=== PATIENT | female | born 1945 | race Caucasian/White ===

== ENCOUNTER → 2020-07-17 10:24 | Outpatient (BNVA) | payer MEDICARE, OTHER, SELFPAY | PROVIDERS: PCP Nurse Practitioner Family; Referring Provider Family Medicine; Visit Provider Orthopaedic Surgery | DX: T14.8XXA Other injury of unspecified body region, initial encounter (principal); M54.2 Cervicalgia; X58.XXXA Exposure to other specified factors, initial encounter | CPT/HCPCS: 72050; 73110 ==

== ENCOUNTER 2021-08-07 12:43 | Emergency (ER) | payer MEDICARE, OTHER, SELFPAY ==
[2021-08-07 13:07] VITALS: BP 163/58; PULSE 80; RESP 18; O2SAT 93; BMI 23.9
[2021-08-07 13:10] VITALS: BP 163/58; PULSE 77; O2SAT 92
--- NOTE | 2021-08-07 13:17 | ED_ITS ---
HPI - Fall General: Chief Complaint: Fall Stated Complaint: Right side and back pain due to fall Time Seen by Provider: 08/07/21 13:09 Source: patient and family Mode of arrival: ambulatory Limitations: no limitations History of Present Illness: Patient is a nice 76-year-old female who presents to ED today along with family for evaluation following a fall. Patient tells me earlier this morning she had stepped outside on her front porch and tripped and fell and landed onto her right side. Patient is complaining mainly of pain to her right ribs. Patient denies striking her head or LOC. She is not having any neck or back pain. Patient has been ambulatory without difficulty since the fall and is not complaining of any hip or lower extremity pain. Patient is not having any shortness of breath or difficulty breathing. She does have pain on deep inspiration. Denies palpitations, lightheadedness, dizziness. MD complaint: fall Onset (ago): hour(s) Fall from: standing Fall witnessed: no Place fall occurred: home Loss of consciousness: None Prolonged down time: no Symptoms prior to fall: none Context: tripped/slipped Location of injury: chest (R ribs) Associated symptoms-after fall: Reports no associated symptoms and chest pain (R rib pain); Denies abdominal pain, confusion, headache(s), lightheadedness or neck pain Review of Systems 2 Card: Reports: chest pain (R rib pain); Denies: palpitations, irregular heart rhythm, edema, swelling of feet/ankles, lightheadedness, syncope or pre-syncope Resp: Denies: dyspnea, wheezing or hemoptysis GI: Denies: abdominal pain : Denies: flank pain, dysuria or vaginal odor Musc: Denies: neck pain, back pain, extremity pain or joint pain Neuro: Denies: headache(s), numbness in extremities, weakness in extremities, sensory changes, dizziness, confusion, behavioral changes, Slurred speech present or difficulty communicating thoughts PFSH ED PFSH: Social History Smoking and tobacco status: never smoked Alcohol intake: never Physical Exam Const: COMMON NORMALS: no acute distress, average body habitus, patient oriented x3, no limitations, healthy appearing, alert and well nourished GENERAL APPEARANCE: cooperative ORIENTATION/CONSCIOUSNESS: Yes awake, Yes oriented to person, Yes oriented to place and Yes oriented to time HENMT: COMMON NORMALS: normocephalic, atraumatic and Normal external nose present HEAD & SCALP: normal to inspection, normocephalic and atraumatic FACE & SINUS: normal facial exam NOSE: Normal external nose present Eye: GENERAL EYE: appearance normal, both eyes and all related structures Neck/C-Spine: COMMON NORMALS: full ROM, no lymphadenopathy, supple and no meningeal signs CERVICAL SPINE: Yes cervical ROM normal, No pain with ce rvical ROM, No Cervical spine tenderness, No step off deformity and No Paracervical muscle tenderness Chest: COMMONS NORMALS: normal inspection of the chest OTHER: pt has pain mainly to R lower anteriolateral ribs; some pain to posterior lower ribs; no crepitus; lung sounds normal Resp: COMMON NORMALS: normal respiratory effort and clear to auscultation bilaterally AUSCULTATION: clear to auscultation bilaterally Cardio: COMMON NORMALS: regular rate and regular rhythm RATE: regular rate RHYTHM: regular rhythm GI: COMMON NORMALS: Normal to inspection, nondistended, normoactive bowel sounds present, Soft to palpation and no masses INSPECTION: Yes normal to inspection PALPATION: Yes Soft to palpation, Yes Tenderness to palpation present (GI) (R upper abdomen ), Yes Guarding due to palpation present (GI) and No Rigid due to palpation : COMMON NORMALS: Yes no CVA tenderness BLADDER/KIDNEY EXAM: Yes no CVA tenderness Back/Pelvis: COMMON NORMALS: no CVA tenderness, thoracic and lumbar spine normal to inspection, no thoracic nor lumbar tenderness and thoraco-lumbar ROM normal Extremity: COMMON NORMALS: normal to inspection and full ROM GENERAL: Yes normal exam except as noted Neuro: MAYTE COMA SCALE: document GCS findings [place] coma scale eye opening: Spontaneous Mayte coma scale verbal response: Orientated Mayte coma scale motor response: Obey commands [place] coma scale total score: 15 COMMON NORMALS: patient oriented x3, moves all extremities, no focal motor deficits and no sensory deficits noted SENSORIUM/ORIENTATION: Yes alert, Yes oriented to person, Yes oriented to place and Yes oriented to time MENINGEAL SIGNS: Yes no meningeal signs Skin: COMMON NORMALS: no rashes or lesions noted GENERAL SKIN EXAM: no rashes or lesions noted TRAUMA: no lacerations or abrasions Course Vital Signs: Vital signs: Vital Signs Pulse Rate 80 06/29/22 13:07 Respiratory Rate 18 08/07/21 13:07 Blood Pressure 163/58 08/07/21 13:07 Pulse Oximetry 93 08/07/21 13:07 MDM - Fall Medical Decision Making CT imaging obtained due to right rib/chest trauma as well as pain to her right abdomen and being on anticoagulation. This was normal. Vital signs are stable. She is satting normally on room air. Blood work is unremarkable. At this time we will provide pain medications for her discomfort. Recommend alternating ice and heat. Follow up with PCP in 3-5 days for re-evaluation. Return to ED precautions discussed. Lab Data : 08/07/21 13:50 08/07/21 13:50 Radiology Impressions Chest/Abdomen/Pelvis CT 08/07/21 13:26 IMPRESSION: 1. No pneumothorax or pulmonary contusion. 2. Moderate emphysema. 3. No rib fractures are identified. 4. Significant breathing motion artifact throughout the abdomen and pelvis. No liver or spleen laceration or free air identified. Small foci of free air or free fluid within the difficult to visualize. 5. Sigmoid diverticulosis. Laboratory Results WBC 6.5 10^3/uL (4.0-10.0) 08/07/21 13:50 RBC 4.41 10^6/uL (4.1-5.3) 08/07/21 13:50 Hgb 13.3 g/dL (11.5-15.3) 08/07/21 13:50 Hct 38.2 % (37.0-47.0) 08/07/21 13:50 MCV 86.6 fl (81-99) 08/07/21 13:50 MCH 30.2 pg (28.0-34.0) 08/07/21 13:50 MCHC 34.8 g/dL (30.0-36.0) 08/07/21 13:50 RDW 12.8 % (12.1-15.1) 08/07/21 13:50 Plt Count 191 10^3/cmm (130-400) 08/07/21 13:50 MPV 8.7 fL (7.4-10.4) 08/07/21 13:50 Neut % (Auto) 61.3 % 08/07/21 13:50 Lymph % (Auto) 23.8 % 08/07/21 13:50 [place] % (Auto) 12.1 % 08/07/21 13:50 Eos % (Auto) 1.7 % 08/07/21 13:50 Baso % (Auto) 0.5 % 08/07/21 13:50 Neut # (Auto) 4.00 10^3/uL (1.8-7.7) 08/07/21 13:50 Lymph # (Auto) 1.6 10^3/uL (0.8-4.8) 08/07/21 13:50 [place] # (Auto) 0.8 10^3/uL (0.2-0.9) 08/07/21 13:50 Eos # (Auto) 0.1 10^3/uL (0.0-0.8) 08/07/21 13:50 Baso # (Auto) 0.0 10^3/uL (0.0-0.1) 08/07/21 13:50 Nucleated RBC % (auto) 0 % 08/07/21 13:50 Nucleated RBCs # 0.0 /100WBC 08/07/21 13:50 Sodium 136 mmol/L (136-145) 08/07/21 13:50 Potassium 3.5 mmol/L (3.5-5.1) 08/07/21 13:50 Chloride 101 mmol/L (98-107) 08/07/21 13:50 Carbon Dioxide 24 mmol/L (22-29) 08/07/21 13:50 Anion Gap 14.5 (5-19) 08/07/21 13:50 BUN 20 mg/dL (8-23) 08/07/21 13:50 Creatinine 1.0 mg/dL (0.5-0.9) H 08/07/21 13:50 GFR Calculation Not Reportable 08/07/21 13:50 Glucose 60 mg/dL (65-115) L 08/07/21 13:50 Calculated Osmolality 282 mOsm/kg (285-295) L 08/07/21 13:50 Calcium 9.3 mg/dL (8.5-10.5) 08/07/21 13:50 Total Bilirubin 0.5 mg/dL (0.15-1.2) 08/07/21 13:50 AST 19 U/L (0-32) 08/07/21 13:50 ALT 12 U/L (0-33) 08/07/21 13:50 Alkaline Phosphatase 76 IU/L (35-105) 08/07/21 13:50 Total Protein 6.7 g/dL (6.6-8.7) 08/07/21 13:50 Albumin 3.9 g/dL (3.5-5.2) 08/07/21 13:50 Globulin 2.8 g/dL (1.3-4.6) 08/07/21 13:50 Discharge Plan Discharge Patient Disposition: Home Clinical Impression: Contusion of rib on right side Qualifiers: Encounter type: initial encounter Qualified Code(s): S20.211A - Contusion of right front wall of thorax, initial encounter Condition: Stable Prescriptions: New hydrocodone-acetaminophen 5-325 mg tablet 1 tab PO Q6H PRN (Reason: pain) Qty: 14 0RF No Action atorvastatin 80 mg tablet 80 mg PO BEDTIME 0RF trazodone 50 mg tablet 50 - 100 mg PO BEDTIME 0RF donepezil 10 mg tablet 10 mg PO QAM 0RF amlodipine 2.5 mg tablet 2.5 mg PO BEDTIME 0RF clopidogrel 75 mg tablet 75 mg PO QAM 0RF Aspir-81 81 mg Tablet,Delayed Release (Dr/Ec) 81 mg PO QAM 0RF hydrochlorothiazide 25 mg tablet 25 mg PO DAILY 0RF losartan 100 mg tablet 100 mg PO QAM 0RF Vitamin D3 25 mcg (1,000 unit) Capsule 25 mcg PO DAILY 0RF Discharge Orders: Discharge ED (Routine); Ordered 08/07/21 Ordered By: Samia Mccall Referrals: Eugenio Martinez [Primary Care Provider] - Patient Instructions: Rib Contusion (ED), Opioid Safety Coding Level of Care Code ED Heel Molder for Chg Fwd Exam Comprehensive
--- NOTE | 2021-08-07 13:26 | CT_ITS ---
WS: [id number] CT CHEST, ABDOMEN AND PELVIS NONCONTRAST. HISTORY: fall to R side; R rib/back pain, R abdominal pain TECHNIQUE: Contiguous 5 mm axial imaging performed through the chest, abdomen and pelvis without IV c ontrast, oral contrast has not been provided. Coronal and sagittal reformats chest. Coronal and sagit luis e reformats through the abdomen and pelvis. All CT scans at [facility] use at least one of these dose optimization techniques: automated exposure control; mA and/or kV adjustment per patient s ize (includes targeted exams where dose is matched to clinical indication); or iterative reconstructi on. CONTRAST: None DLP: 1431.73 mGy.cm COMPARISON: None available. Chest CT: Chronic emphysema. Prior CABG. Scattered granulomata. Interstitial thickening and prominenc e throughout both lungs. No mass or nodule. There are a few very small, less than 3 mm peripheral nod ules which are probably postinflammatory. No pneumothorax. Moderate atherosclerosis aorta. Mild pulmo nary hypertension. Heart size is slightly enlarged. No pericardial effusion. Marked increase in thora cic kyphosis. Mild anterior wedging of T7 and T9. No rib fractures are identified. Nondisplaced fract ures may be difficult to visualize. Abdomen CT: Significant motion artifact within the abdomen and pelvis. Negative liver and spleen and gallbladder taking into consideration the amount of motion. Pancreas is very poorly visualized. No ad renal mass. Small kidneys with no obstruction. Extensive atherosclerotic plaque within the aorta and the mesenteric arteries. No free fluid or adenopathy. Nondistended stomach. No small bowel obstruction. Mild constipation. The appendix is not identified. Distal diverticular disease without acute diverticulitis. Pelvic CT: Motion artifact continues into the pelvis. Well-distended urinary bladder. CT/[place] [id number] IMPRESSION: 1. No pneumothorax or pulmonary contusion. 2. Moderate emphysema. 3. No rib fractures are identified. 4. Significant breathing motion artifact throughout the abdomen and pelvis. No liver or spleen laceration or free air identified. Small foci of free air or f ree fluid within the difficult to visualize. 5. Sigmoid diverticulosis.
[2021-08-07 13:59] LABS: Basophils % 0.5 %; Eosinophils # 0.1 10^3/uL (0.0-0.8); Eosinophils % 1.7 %; Hematocrit 38.2 % (37.0-47.0); Hemoglobin 13.3 g/dL (11.5-15.3); Lymphocytes # 1.6 10^3/uL (0.8-4.8); Lymphocytes % 23.8 %; Mean Corpuscular HGB Conc 34.8 g/dL (30.0-36.0); Mean Corpuscular Hemoglobin 30.2 pg (28.0-34.0); Mean Corpuscular Volume 86.6 fl (81-99); Mean Platelet Volume 8.7 fL (7.4-10.4); Monocytes # 0.8 10^3/uL (0.2-0.9); Monocytes % 12.1 %; Neutrophils % 61.3 %; Nucleated Red Blood Cells % 0 %; Platelet Count 191 10^3/cmm (130-400); Red Blood Count 4.41 10^6/uL (4.1-5.3); Red Cell Distribution Width 12.8 % (12.1-15.1); White Blood Count 6.5 10^3/uL (4.0-10.0)
[2021-08-07] MEDS: ondansetron 2 mg/ML SDV 2 mL 4 MG IVP (14:05)
[2021-08-07] MEDS: morphine 4 mg/mL SDV 1 mL IVP (14:05)
[2021-08-07 14:10] VITALS: BP 179/69; PULSE 64; O2SAT 96
[2021-08-07 14:18] LABS: Alanine Aminotransferase 12 U/L (0-33); Albumin Level 3.9 g/dL (3.5-5.2); Alkaline Phosphatase 76 IU/L (35-105); Anion Gap 14.5 (5-19); Aspartate Amino Transferase 19 U/L (0-32); Blood Urea Nitrogen 20 mg/dL (8-23); Calcium 9.3 mg/dL (8.5-10.5); Carbon Dioxide 24 mmol/L (22-29); Chloride 101 mmol/L (98-107); Globulin 2.8 g/dL (1.3-4.6); Glucose 60 mg/dL (65-115); Osmolality Calculated 282 mOsm/kg (285-295); Potassium 3.5 mmol/L (3.5-5.1); Sodium 136 mmol/L (136-145); Total Bilirubin 0.5 mg/dL (0.15-1.2); Total Protein 6.7 g/dL (6.6-8.7)
[2021-08-07 15:20] VITALS: BP 158/61; PULSE 56; O2SAT 93
== END 2021-08-07 15:20 | disposition home or self-care (01) ==
PROVIDERS: Emergency Provider Physician Assistant; PCP Nurse Practitioner Family
DX: S20.211A Contusion of right front wall of thorax, initial encounter (principal); Z79.02 Long term (current) use of antithrombotics/antiplatelets; Z79.82 Long term (current) use of aspirin; W01.0XXA Fall on same level from slipping, tripping and stumbling without subsequent striking against object, initial encounter
CPT/HCPCS: 71250; 74176; 80053; 85025; 96374; 96375; 99284; J2270; J2405

== ENCOUNTER 2021-09-25 14:21 | Outpatient (CLI) | payer MEDICARE, OTHER, SELFPAY ==
[2021-09-25 15:12] LABS: Basophils % 0.6 %; Eosinophils # 0.2 10^3/uL (0.0-0.8); Eosinophils % 3.1 %; Hematocrit 43.2 % (37.0-47.0); Hemoglobin 14.3 g/dL (11.5-15.3); Lymphocytes % 27.7 %; Mean Corpuscular HGB Conc 33.1 g/dL (30.0-36.0); Mean Corpuscular Hemoglobin 30.3 pg (28.0-34.0); Mean Corpuscular Volume 91.5 fl (81-99); Mean Platelet Volume 8.7 fL (7.4-10.4); Monocytes # 0.7 10^3/uL (0.2-0.9); Monocytes % 9.3 %; Neutrophils # 4.17 10^3/uL (1.8-7.7); Neutrophils % 58.7 %; Nucleated Red Blood Cells % 0 %; Platelet Count 199 10^3/cmm (130-400); Red Blood Count 4.72 10^6/uL (4.1-5.3); Red Cell Distribution Width 12.9 % (12.1-15.1); White Blood Count 7.1 10^3/uL (4.0-10.0)
[2021-09-25 15:51] LABS: Folate Level 16.5 ng/mL (4.8-37.3)
[2021-09-25 15:58] LABS: Alanine Aminotransferase 14 U/L (0-33); Albumin Level 4.5 g/dL (3.5-5.2); Alkaline Phosphatase 76 U/L (35-105); Anion Gap 16.5 (5-19); Aspartate Amino Transferase 18 U/L (0-32); Blood Urea Nitrogen 18 mg/dL (8-23); Calcium 9.6 mg/dL (8.5-10.5); Carbon Dioxide 26 mmol/L (22-29); Chloride 101 mmol/L (98-107); Globulin 1.8 g/dL (1.3-4.6); Glucose 73 mg/dL (65-115); Iron 72 ug/dL (37-145); Osmolality Calculated 290 mOsm/kg (285-295); Percent Saturation 24.7 % (20-50); Potassium 3.5 mmol/L (3.5-5.1); Sodium 140 mmol/L (136-145); Thyroid Stimulating Hormone 1.43 uIU/mL (0.27-4.20); Total Bilirubin 0.6 mg/dL (0.15-1.2); Total Iron Binding Capacity 291 mcg/dl; Total Protein 6.3 g/dL (6.6-8.7); Unsaturated Iron Binding 219 ug/dL (112-347); Vitamin B12 495 pg/mL (232-1245)
== END 2021-09-25 14:22 | disposition home or self-care (01) ==
LOC: LAB 14:26
PROVIDERS: PCP Nurse Practitioner Family; Visit Provider Internal Medicine
DX: R41.0 Disorientation, unspecified (principal); D64.9 Anemia, unspecified
CPT/HCPCS: 36415; 80053; 82607; 82746; 83540; 83550; 84443; 85025

== ENCOUNTER 2021-10-05 09:30 | Emergency (ER) | payer MEDICARE, OTHER, SELFPAY ==
[2021-10-05 09:34] VITALS: BP 186/103; PULSE 70; RESP 18; TEMP 36.8; O2SAT 95; BMI 23.5
[2021-10-05] MEDS: sodium chloride 0.9% 1,000 ML 999 ML IV (10:00)
[2021-10-05 10:05] VITALS: BP 198/79; PULSE 60; RESP 19; O2SAT 98
[2021-10-05 10:20] LABS: Basophils % 0.4 %; Eosinophils # 0.1 10^3/uL (0.0-0.8); Eosinophils % 1.6 %; Hematocrit 42.8 % (37.0-47.0); Hemoglobin 14.2 g/dL (11.5-15.3); Lymphocytes # 1.5 10^3/uL (0.8-4.8); Lymphocytes % 19.3 %; Mean Corpuscular HGB Conc 33.2 g/dL (30.0-36.0); Mean Corpuscular Hemoglobin 30.4 pg (28.0-34.0); Mean Corpuscular Volume 91.6 fl (81-99); Mean Platelet Volume 8.7 fL (7.4-10.4); Monocytes # 0.7 10^3/uL (0.2-0.9); Monocytes % 8.9 %; Neutrophils # 5.31 10^3/uL (1.8-7.7); Neutrophils % 69.7 %; Nucleated Red Blood Cells % 0 %; Platelet Count 173 10^3/cmm (130-400); Red Blood Count 4.67 10^6/uL (4.1-5.3); Red Cell Distribution Width 13.1 % (12.1-15.1); White Blood Count 7.6 10^3/uL (4.0-10.0)
--- NOTE | 2021-10-05 10:27 | ED_ITS ---
HPI - Nausea/Vomiting/Diarrhea General: Chief complaint: Nausea/Vomiting/Diarrhea Stated complaint: n/d Time Seen by Provider: 10/05/21 09:39 Source: patient Mode of arrival: ambulatory History of Present Illness: 68-year-old female presents emergency room with complaint of nausea and diarrhea abdominal discomfort and cramping for the last 4 days. No hematemesis or coffee-ground emesis, no hematochezia or melena. She was recently diagnosed with UTI and started nitrofurantoin. She took a few days worth of the antibiotics and then stopped because she they were causing abdominal discomfort and she related to her onset of diarrhea. She was on another antibiotic within the last month that also cause diarrhea problem she do es not know the name of that medication. She is still having some mild dysuria. She notes that these stools are foul-smelling and mucousy at times. MD elicited complaint: diarrhea Onset (ago): day(s) (4) Description of diarrhea: mucus and semi-solid Associated nausea: Yes Associated abdominal pain: Yes Location of pain: Diffuse Radiation: diffuse Pain consistency: intermittent Severity: moderate Quality: cramping Exacerbating factors: none Relieving factors: none Associated symtoms: Reports fatigue, malaise and nausea; Denies altered mental status, anxiety, bloating, change in vision, chest pain, cough, diaphoresis, decreased urine output, dizziness, dysuria, epistaxis, fecal incontinence, fevers/chills, headache(s), anorexia, myalgias, numbness, palpitations, rash, short of breath, syncope, tenesmus, tinnitus or weakness Review of Systems Const: Reports: fatigue and malaise; Denies: fever(s), chills or diaphoresis Eyes: Denies: change in vision ENMT: Denies: throat pain, tinnitus or epistaxis Card: Denies: chest pain, palpitations or syncope Resp: Denies: dyspnea, productive cough or non-productive cough GI: Reports: abdominal pain, nausea and diarrhea; Denies: vomiting, hematemesis, coffee ground emesis, dysphagia, heartburn, bloating, fecal incontinence or hematochezia : Denies: dysuria Skin/Breast: Denies: rash or pruritus Neuro: Denies: headache(s) or dizziness Psych: Denies: anxiety PFSH ED PFSH: Social History Smoking and tobacco status: former smoker Alcohol intake: never Physical Exam Const: COMMON NORMALS: no acute distress EXAM LIMITATIONS: no altered mental status GENERAL APPEARANCE: cooperative and comfortable ORIENTATION/CONSCIOUSNESS: Yes awake, Yes oriented to person, Yes oriented to place and Yes oriented to time HENMT: COMMON NORMALS: normocephalic, atraumatic and hearing grossly normal bilaterally HEAD & SCALP: normocephalic and atraumatic Resp: COMMON NORMALS: normal respiratory effort, No retractions, No use of accessory muscles and clear to auscultation bilaterally AUSCULTATION: clear to auscultation bilaterally Cardio: COMMON NORMALS: regular rate, regular rhythm and No murmurs present (Cardio) RATE: regular rate RHYTHM: regular rhythm GI: COMMON NORMALS: Soft to palpation and No hepatosplenomegaly present AUSCULTATION: Yes normoactive bowel sounds PALPATION: Yes Soft to palpation, No Tenderness to palpation present (GI), No Guarding due to palpation present (GI) and Yes No hepatosplenomegaly present Extremity: COMMON NORMALS: normal to inspection, capillary refill normal, no clubbing, cyanosis or edema, no calf tenderness and no pedal edema Neuro: SENSORIUM/ORIENTATION: Yes oriented to person, Yes oriented to place an d Yes oriented to time Skin: COMMON NORMALS: no rashes or lesions noted GENERAL SKIN EXAM: no rashes or lesions noted Course Vital Signs: Vital signs: Vital Signs Temperature 98.3 F 10/05/21 09:34 Pulse Rate 64 10/05/21 13:59 Respiratory Rate 18 10/05/21 13:59 Blood Pressure 184/69 10/05/21 13:59 Pulse Oximetry 96 10/05/21 13:59 Oxygen Delivery Me thod 10/05/21 13:12 MDM - Nausea/Vomiting/Diarrhea Medical Decision Making Labs imaging reviewed treat symptomatically we will get a C. difficile patient was given IV fluids discharge home follow-up with primary care return if worsens patient requested admission so that she could sleep discussed with her that we really cannot admit her under those premises. Medical Records I reviewed the patient's medical records. Lab Data I reviewed the patient's lab results. : 10/05/21 10:02 10/05/21 10:02 Laboratory Results WBC 7.6 10^3/uL (4.0-10.0) 10/05/21 10:02 RBC 4.67 10^6/uL (4.1-5.3) 10/05/21 10:02 Hgb 14.2 g/dL (11.5-15.3) 10/05/21 10:02 Hct 42.8 % (37.0-47.0) 10/05/21 10:02 MCV 91.6 fl (81-99) 10/05/21 10:02 MCH 30.4 pg (28.0-34.0) 10/05/21 10:02 MCHC 33.2 g/dL (30.0-36.0) 10/05/21 10:02 RDW 13.1 % (12.1-15.1) 10/05/21 10:02 Plt Count 173 10^3/cmm (130-400) 10/05/21 10:02 MPV 8.7 fL (7.4-10.4) 10/05/21 10:02 Neut % (Auto) 69.7 % 10/05/21 10:02 Lymph % (Auto) 19.3 % 10/05/21 10:02 [place] % (Auto) 8.9 % 10/05/21 10:02 Eos % (Auto) 1.6 % 10/05/21 10:02 Baso % (Auto) 0.4 % 10/05/21 10:02 Neut # (Auto) 5.31 10^3/uL (1.8-7.7) 10/05/21 10:02 Lymph # (Auto) 1.5 10^3/uL (0.8-4.8) 10/05/21 10:02 [place] # (Auto) 0.7 10^3/uL (0.2-0.9) 10/05/21 10:02 Eos # (Auto) 0.1 10^3/uL (0.0-0.8) 10/05/21 10:02 Baso # (Auto) 0.0 10^3/uL (0.0-0.1) 10/05/21 10:02 Nucleated RBC % (auto) 0 % 10/05/21 10:02 Nucleated RBCs # 0.0 /100WBC 10/05/21 10:02 Sodium 140 mmol/L (136-145) 10/05/21 10:02 Potassium 3.7 mmol/L (3.5-5.1) 10/05/21 10:02 Chloride 103 mmol/L (98-107) 10/05/21 10:02 Carbon Dioxide 24 mmol/L (22-29) 10/05/21 10:02 Anion Gap 16.7 (5-19) 10/05/21 10:02 BUN 13 mg/dL (8-23) 10/05/21 10:02 Creatinine 0.9 mg/dL (0.5-0.9) 10/05/21 10:02 GFR Calculation Not Reportable 10/05/21 10:02 Glucose 92 mg/dL (65-115) 10/05/21 10:02 Calculated Osmolality 290 mOsm/kg (285-295) 10/05/21 10:02 Lactic Acid 1.5 mmol/L (0.5-2.2) 10/05/21 10:02 Calcium 8.9 mg/dL (8.5-10.5) 10/05/21 10:02 Total Bilirubin 1.0 mg/dL (0.15-1.2) 10/05/21 10:02 AST 18 U/L (0-32) 10/05/21 10:02 ALT 13 U/L (0-33) 10/05/21 10:02 Alkaline Phosphatase 74 U/L (35-105) 10/05/21 10:02 Total Protein 6.3 g/dL (6.6-8.7) L 10/05/21 10:02 Albumin 4.1 g/dL (3.5-5.2) 10/05/21 10:02 Globulin 2.2 g/dL (1.3-4.6) 10/05/21 10:02 Urine Color Yellow (Yellow) 10/05/21 10:16 Urine Appearance Sl hazy (CLEAR) 10/05/21 10:16 Urine pH 6 (5-7) 10/05/21 10:16 Ur Specific [place] 1.015 (1.005-1.030) 10/05/21 10:16 Urine Protein Trace (Negative) 10/05/21 10:16 Urine Glucose (UA) Norm (Normal) 10/05/21 10:16 Urine Ketones 1+ (Negative) H 10/05/21 10:16 Urine Blood 2+ (Negative) H 10/05/21 10:16 Urine Nitrate Negative (Negative) 10/05/21 10:16 Urine Bilirubin 1+ (Negative) H 10/05/21 10:16 Urine Urobilinogen 1 mg/dL (Negative) H 10/05/21 10:16 Ur Leukocyte Esterase 2+ (Negative) H 10/05/21 10:16 Urine RBC 5-10 /hpf (0-2) H 10/05/21 10:16 Urine WBC 15-25 /hpf (0-5) H 10/05/21 10:16 Ur Squamous Epith Cells 15-25 /hpf (0-5) H 10/05/21 10:16 Amorphous Sediment Not Reportable 10/05/21 10:16 Urine Bacteria 1+ /hpf (NONE) H 10/05/21 10:16 Urine Mucus 1+ /hpf 10/05/21 10:16 Discharge Plan Discharge Patient Disposition: Home Clinical Impression: Diarrhea Condition: Stable Prescriptions: New promethazine 25 mg tablet 25 mg PO Q6H PRN (Reason: nausea and vomiting) Qty: 20 0RF hydroxyzine HCl 25 mg tablet 25 - 50 mg PO .qhs PRN (Reason: sleep) Qty: 10 0RF No Action duloxetine 20 mg capsule,delayed release(DR/EC) 20 mg PO DAILY Qty: 90 3RF trazodone 50 mg tablet 50 - 100 mg PO BEDTIME amlodipine 2.5 mg tablet 2.5 mg PO BEDTIME clopidogrel 75 mg tablet 75 mg PO QAM Aspir-81 81 mg Tablet,Delayed Release (Dr/Ec) 81 mg PO QAM losartan 100 mg tablet 100 mg PO QAM Vitamin D3 25 mcg (1,000 unit) Capsule 25 mcg PO DAILY Discharge Orders: Discharge ED (Routine); Ordered 10/05/21 Ordered By: Hemal Horne Referrals: Eugenio Martinez [Primary Care Provider] - Patient Instructions: Opioid Safety Coding Level of Care Code ED [employer] Developer for Florence Christy
[2021-10-05] MEDS: hyDRALAzine 20 mg/mL INJ 1 mL IVP (10:32)
[2021-10-05] MEDS: enalaprilat 1.25 mg/mL Inj IVP (10:32)
[2021-10-05 10:33] LABS: Alanine Aminotransferase 13 U/L (0-33); Albumin Level 4.1 g/dL (3.5-5.2); Alkaline Phosphatase 74 U/L (35-105); Anion Gap 16.7 (5-19); Aspartate Amino Transferase 18 U/L (0-32); Blood Urea Nitrogen 13 mg/dL (8-23); Calcium 8.9 mg/dL (8.5-10.5); Carbon Dioxide 24 mmol/L (22-29); Chloride 103 mmol/L (98-107); Globulin 2.2 g/dL (1.3-4.6); Glucose 92 mg/dL (65-115); Osmolality Calculated 290 mOsm/kg (285-295); Potassium 3.7 mmol/L (3.5-5.1); Sodium 140 mmol/L (136-145)
[2021-10-05 10:35] LABS: Lactic Sepsis W/Reflex 1.5 mmol/L (0.5-2.2)
[2021-10-05 10:36] LABS: Add Urine Microscopic? YES; Bilirubin Urine 1+ (Negative); Blood Urine 2+ (Negative); Glucose Urine UA Norm (Normal); Ketones Urine 1+ (Negative); Leukocyte Esterase Urine 2+ (Negative); Nitrate Urine Negative (Negative); Protein Urine Trace (Negative); Specific Gravity, Urine 1.015 (1.005-1.030); Urine Appearance SL Hazy (CLEAR); Urine Color Yellow (Yellow); Urobilinogen Urine 1 mg/dL (Negative); pH Urine 6 (5-7)
[2021-10-05 10:38] LABS: Bacteria Urine 1+ /hpf; Mucus Urine 1+ /hpf; Squamous Epithelial Cell Urine 15-25 /hpf (0-5); WBC Urine 15-25 /hpf (0-5)
[2021-10-05 10:39] LABS: Add Urine Culture? No
[2021-10-05 10:56] LABS: Total Protein 6.3 g/dL (6.6-8.7)
[2021-10-05 13:12] VITALS: BP 184/72; PULSE 63; RESP 18; O2SAT 100
[2021-10-05 13:59] VITALS: BP 184/69; PULSE 64; RESP 18; O2SAT 96
== END 2021-10-05 14:00 | disposition home or self-care (01) ==
PROVIDERS: Emergency Provider Family Medicine; PCP Nurse Practitioner Family
DX: R19.7 Diarrhea, unspecified (principal); Z79.02 Long term (current) use of antithrombotics/antiplatelets; Z79.82 Long term (current) use of aspirin; Z87.891 Personal history of nicotine dependence
CPT/HCPCS: 80053; 81001; 83605; 85025; 87040; 87493; 96361; 96374; 96375; 99284; J0360; J3490; J7030

== ENCOUNTER 2022-02-25 06:20 | Emergency (ER) | payer MEDICARE, OTHER, SELFPAY ==
--- NOTE | 2022-02-25 06:27 | XR_ITS ---
WS: [id number] Thoracic spine, 3 views, 02/25/2022 Clinical Data: fall Comparison: None. Findings: No acute compression fractures are seen. The disc heights are normal. There are chronic wedge deformities of the central thoracic vertebral bodies with kyphosis. There is diffuse osteoporosis with minimal osteoarthritic spurring. Midline sternotomy sutures are seen. XR/XR thoracic spine 3V* [id number] Impression: 1. Central thoracic wedge deformities which are chronic. 2. Osteoporosis and osteoarthritis.
--- NOTE | 2022-02-25 06:27 | XR_ITS ---
WS: [id number] Lumbar spine, 3 views, 02/25/2022 Clinical Data: fall Comparison: CT chest abdomen and pelvis, 08/07/2021 Findings: There is a compression fracture of L3 with loss of at least 50% of the central vertebral body height. There is minimal 0.2 cm retropulsion of the posterior superior aspect of L3 There is degenerative disc narrowing at L5-S1 with spurring. There is diffuse osteoporosis. The trans verse processes and SI joints are not remarkable. There is calcification in the wall of the abdominal aorta but no aneurysm.. XR/XR lumbar spine 2-3V* [id number] Impression: 1. Compression fracture of L3 which is new. 2. Degenerative disc narrowing at L5-S1. 3. Osteoporosis of all the lumbar vertebral bodies.
[2022-02-25 06:30] VITALS: BP 206/100; PULSE 95; RESP 16; TEMP 36.7; O2SAT 96; BMI 21.9
--- NOTE | 2022-02-25 06:42 | W.ED.BACK ---
HPI - Back Pain/Injury General: Chief Complaint: Back Pain/Injury Stated Complaint: fall, back injury Time Seen by Provider: 02/25/22 06:27 Source: patient Mode of arrival: ambulatory History of Present Illness: 77-year-old female presents emergency room with complaint of UTI symptoms as well as low back pain. 2 weeks ago patient had a L3 compression fracture. She was placed in a TLSO brace at [facility] in [place] and discharged home with pain medications. She is also recently had a bladder infection she was initially started on Macrobid and then another medication she does not know the name of the second antibiotic and does not have it on her medicine list at this time still having quite a bit of suprapubic discomfort denies any hematuria no fever. Presents today because of worsening pain in her back. MD elicited complaint: back pain Pertinent past history: recent trauma Timing: constant Severity: mild Location: lumbar spine Radiation: none Exacerbating factors: none Relieving factors: none Associated symptoms: Reports abdominal pain (Suprapubic), difficulty walking and dysuria; Deny arthralgias, chills, change in bowel habits, fatigue, fecal incontinence, fever(s), hematuria, myalgias, nausea, numbness, syncope, tingling/numbness/burning, urinary frequency, urinary urgency, vomiting or weakness Review of Systems Const: Denies: fever(s), chills or fatigue ENMT: Denies: throat pain, ear or mastoid pain, nasal discharge or nasal congestion Card: Denies: syncope Resp: Denies: dyspnea, productive cough or non-productive cough GI: Reports: abdominal pain (Suprapubic); Denies: nausea, vomiting, fecal incontinence or change in bowel habits : Reports: dysuria and urinary frequency; Denies: urinary urgency or hematuria Skin/Breast: Denies: rash or pruritus Neuro: Reports: difficulty walking PFSH ED PFSH: Medical History (Updated 02/25/22 @ 10:46 by Hemal Horne DO) High cholesterol Hypertension Surgical History (Updated 02/25/22 @ 06:43 by Hemal Horne DO) History of open heart surgery Social History Smoking and tobacco status: former smoker Alcohol intake: never Physical Exam Const: GENERAL APPEARANCE: cooperative and comfortable ORIENTATION/CONSCIOUSNESS: Yes awake, Yes oriented to person, Yes oriented to place and Yes oriented to time HENMT: COMMON NORMALS: normocephalic, atraumatic and hearing grossly normal bilaterally HEAD & SCALP: normocephalic and atraumatic Resp: COMMON NORMALS: normal respiratory effort, No retractions, No use of accessory muscles and clear to auscultation bilaterally AUSCULTATION: clear to auscultation bilaterally Cardio: COMMON NORMALS: regular rate, regular rhythm and No murmurs present (Cardio) RATE: regular rate RHYTHM: regular rhythm GI: COMMON NORMALS: Soft to palpation and No hepatosplenomegaly present AUSCULTATION: Yes normoactive bowel sounds PALPATION: Yes Soft to palpation, No Tenderness to palpation present (GI), No Guarding due to palpation present (GI) and Yes No hepatosplenomegaly present Extremity: COMMON NORMALS: normal to inspection, capillary refill normal, no clubbing, cyanosis or edema, no calf tenderness and no pedal edema Neuro: SENSORIUM/ORIENTATION: Yes oriented to person, Yes oriented to place and Yes oriented to time Skin: COMMON NORMALS: no rashes or lesions noted GENERAL SKIN EXAM: no rashes or lesions noted Course Vital Signs: Vital signs: Vital Signs Temperature 98.0 F 02/25/22 06:30 Pulse Rate 94 02/25/22 11:15 Respiratory Rate 16 02/25/22 06:30 Blood Pressure 180/98 02/25/22 11:15 Pulse Oximetry 94 02/25/22 11:15 Oxygen Delivery Me thod 02/25/22 10:00 MDM - Back Pain/Injury Medical Decision Making Patient has an L3 compression fracture and is out of hydrocodone. Was able to talk to another family member she was seen in [place] they had set up follow-up but evidently she had missed follow-up she is supposed set up with a primary care but had missed that as well. She is rescheduled tomorrow to establish with her primary care encourage her to keep that visit. We will set her up locally with orthopedic spine surgery for possible kyphoplasty. Pain medications refilled. Medical Records I reviewed the patient's medical records. Labs I reviewed the patient's lab results. 02/25/22 07:41 02/25/22 07:41 Radiology Impressions Lumbar Spine X-Ray 02/25/22 06:27 Impression: 1. Compression fracture of L3 which is new. 2. Degenerative disc narrowing at L5-S1. 3. Osteoporosis of all the lumbar vertebral bodies. Thoracic Spine X-Ray 02/25/22 06:27 Impression: 1. Central thoracic wedge deformities which are chronic. 2. Osteoporosis and osteoarthritis. Laboratory Results WBC 7.5 10^3/uL (4.0-10.0) 02/25/22 07:41 RBC 4.60 10^6/uL (4.1-5.3) 02/25/22 07:41 Hgb 13.6 g/dL (11.5-15.3) 02/25/22 07:41 Hct 42.0 % (37.0-47.0) 02/25/22 07:41 MCV 91.3 fl (81-99) 02/25/22 07:41 MCH 29.6 pg (28.0-34.0) 02/25/22 07:41 MCHC 32.4 g/dL (30.0-36.0) 02/25/22 07:41 RDW 12.9 % (12.1-15.1) 02/25/22 07:41 Plt Count 308 10^3/cmm (130-400) 02/25/22 07:41 MPV 8.2 fL (7.4-10.4) 02/25/22 07:41 Neut % (Auto) 62.3 % 02/25/22 07:41 Lymph % (Auto) 26.1 % 02/25/22 07:41 [place] % (Auto) 9.3 % 02/25/22 07:41 Eos % (Auto) 1.1 % 02/25/22 07:41 Baso % (Auto) 0.8 % 02/25/22 07:41 Neut # (Auto) 4.68 10^3/uL (1.8-7.7) 02/25/22 07:41 Lymph # (Auto) 2.0 10^3/uL (0.8-4.8) 02/25/22 07:41 [place] # (Auto) 0.7 10^3/uL (0.2-0.9) 02/25/22 07:41 Eos # (Auto) 0.1 10^3/uL (0.0-0.8) 02/25/22 07:41 Baso # (Auto) 0.1 10^3/uL (0.0-0.1) 02/25/22 07:41 Nucleated RBC % (auto) 0 % 02/25/22 07:41 Nucleated RBCs # 0.0 /100WBC 02/25/22 07:41 Sodium 131 mmol/L (136-145) L 02/25/22 07:41 Potassium 4.0 mmol/L (3.5-5.1) 02/25/22 07:41 Chloride 96 mmol/L (98-107) L 02/25/22 07:41 Carbon Dioxide 24 mmol/L (22-29) 02/25/22 07:41 Anion Gap 15.0 (5-19) 02/25/22 07:41 BUN 17 mg/dL (8-23) 02/25/22 07:41 Creatinine 0.8 mg/dL (0.5-0.9) 02/25/22 07:41 GFR Calculation Not Reportable 02/25/22 07:41 Glucose 101 mg/dL (65-115) 02/25/22 07:41 Calculated Osmolality 274 mOsm/kg (285-295) L 02/25/22 07:41 Calcium 9.0 mg/dL (8.5-10.5) 02/25/22 07:41 Urine Color Yellow (Yellow) 02/25/22 07:18 Urine Appearance Clear (CLEAR) 02/25/22 07:18 Urine pH 5 (5-7) 02/25/22 07:18 Ur Specific [place] 1.005 (1.005-1.030) 02/25/22 07:18 Urine Protein Trace (Negative) 02/25/22 07:18 Urine Glucose (UA) Norm (Normal) 02/25/22 07:18 Urine Ketones Negative (Negative) 02/25/22 07:18 Urine Blood 2+ (Negative) H 02/25/22 07:18 Urine Nitrate Negative (Negative) 02/25/22 07:18 Urine Bilirubin Neg (Negative) 02/25/22 07:18 Urine Urobilinogen Norm mg/dL (Negative) 02/25/22 07:18 Ur Leukocyte Esterase Trace (Negative) H 02/25/22 07:18 Urine RBC 0-4 /hpf (0-2) H 02/25/22 07:18 Urine WBC 0-4 /hpf (0-5) H 02/25/22 07:18 Ur Squamous Epith Cells 0-4 /hpf (0-5) H 02/25/22 07:18 Ur Transition Epith Cell 0-4 /hpf 02/25/22 07:18 Amorphous Sediment Not Reportable 02/25/22 07:18 Urine Bacteria Trace /hpf (NONE) 02/25/22 07:18 Discharge Plan Discharge Patient Disposition: Home Clinical Impression: Closed compression fracture of lumbar vertebra Condition: Stable Prescriptions: New hydrocodone-acetaminophen 5-325 mg tablet 1 tab PO Q6H PRN (Reason: pain) Qty: 20 0RF No Action duloxetine 30 mg capsule,delayed release(DR/EC) 30 mg PO DAILY Qty: 90 3RF pantoprazole 40 mg tablet,delayed release (DR/EC) 40 mg PO QAM Qty: 90 3RF trazodone 50 mg tablet 50 - 100 mg PO BEDTIME Qty: 60 3RF amlodipine 2.5 mg tablet 2.5 mg PO BEDTIME clopidogrel 75 mg tablet 75 mg PO QAM Aspir-81 81 mg Tablet,Delayed Release (Dr/Ec) 81 mg PO QAM losartan 100 mg tablet 100 mg PO QAM Vitamin D3 25 mcg (1,000 unit) Capsule 25 mcg PO DAILY promethazine 25 mg tablet 25 mg PO Q6H PRN (Reason: nausea and vomiting) Qty: 20 0RF hydroxyzine HCl 25 mg tablet 25 - 50 mg PO .qhs PRN (Reason: sleep) Qty: 10 0RF Discharge Orders: Discharge ED (Routine); Ordered 02/25/22 Ordered By: Hemal Horne Discharge Diet: Usual diet Discharge Activity: Increase activity as tolerated Patient Instructions: Opioid Safety, Pain Management Activity Restrictions/Additional Instructions: Keep your appointment to establish with Dr. Mcgovern for primary care tomorrow. Case management will make arrangements for follow-up with orthopedic spine surgery to evaluate for possible kyphoplasty. Coding Level of Care Code ED Post Secondary Professional for Michaelg Fwd Exam Detailed
[2022-02-25] MEDS: amlodipine 5 mg Tablet PO (07:15)
[2022-02-25] MEDS: HYDROcodone-acetaminophen 5-325 mg Tablet 1 TAB PO (07:15)
[2022-02-25 07:21] VITALS: BP 207/84; PULSE 83; O2SAT 98
[2022-02-25 07:50] VITALS: BP 207/84
[2022-02-25] MEDS: losartan 50 mg Tablet 100 MG PO (07:50)
[2022-02-25 07:56] LABS: Basophils # 0.1 10^3/uL (0.0-0.1); Basophils % 0.8 %; Eosinophils # 0.1 10^3/uL (0.0-0.8); Eosinophils % 1.1 %; Hemoglobin 13.6 g/dL (11.5-15.3); Lymphocytes % 26.1 %; Mean Corpuscular HGB Conc 32.4 g/dL (30.0-36.0); Mean Corpuscular Hemoglobin 29.6 pg (28.0-34.0); Mean Corpuscular Volume 91.3 fl (81-99); Mean Platelet Volume 8.2 fL (7.4-10.4); Monocytes # 0.7 10^3/uL (0.2-0.9); Monocytes % 9.3 %; Neutrophils # 4.68 10^3/uL (1.8-7.7); Neutrophils % 62.3 %; Nucleated Red Blood Cells % 0 %; Platelet Count 308 10^3/cmm (130-400); Red Cell Distribution Width 12.9 % (12.1-15.1); White Blood Count 7.5 10^3/uL (4.0-10.0)
[2022-02-25 08:04] LABS: Glucose Urine UA Norm (Normal); Protein Urine Trace (Negative); Specific Gravity, Urine 1.005 (1.005-1.030); Urine Appearance Clear (CLEAR); Urine Color Yellow (Yellow); pH Urine 5 (5-7)
[2022-02-25 08:05] LABS: Add Urine Culture? No; Add Urine Microscopic? YES; Bacteria Urine TRACE /hpf; Bilirubin Urine Neg (Negative); Blood Urine 2+ (Negative); Ketones Urine Negative (Negative); Leukocyte Esterase Urine Trace (Negative); Nitrate Urine Negative (Negative); RBC Urine 0-4 /hpf (0-2); Squamous Epithelial Cell Urine 0-4 /hpf (0-5); Transitional Epi Cells Urine 0-4 /hpf; Urobilinogen Urine Norm (Negative); WBC Urine 0-4 /hpf (0-5)
[2022-02-25 08:07] LABS: Blood Urea Nitrogen 17 mg/dL (8-23); Carbon Dioxide 24 mmol/L (22-29); Chloride 96 mmol/L (98-107); Creatinine Clr Calc Pharmacy 56.1359; Glucose 101 mg/dL (65-115); Osmolality Calculated 274 mOsm/kg (285-295); Sodium 131 mmol/L (136-145)
[2022-02-25 08:21] VITALS: BP 159/103
[2022-02-25 10:00] VITALS: BP 196/77; PULSE 93; O2SAT 94
[2022-02-25 11:15] VITALS: BP 180/98; PULSE 94; O2SAT 94
--- NOTE | 2022-02-25 12:04 | DCPLANNER ---
Addendum entered by Joanie Smart 03/06/22 13:46: Patient had a follow up appointment scheduled for 03.04.22 with ortho - patient did attend appointment. Original Note: road manager had message to schedule a follow up appointment for patient with ortho. road manager sent patients information to the front office staff at ortho. Patients information will be printed and reviewed. Clinic will call patient with appointment information.
== END 2022-02-25 11:10 | disposition home or self-care (01) ==
PROVIDERS: Emergency Provider Family Medicine
DX: S32.030A Wedge compression fracture of third lumbar vertebra, initial encounter for closed fracture (principal); Z79.02 Long term (current) use of antithrombotics/antiplatelets; Z79.82 Long term (current) use of aspirin; I10 Essential (primary) hypertension; Z87.891 Personal history of nicotine dependence; X58.XXXA Exposure to other specified factors, initial encounter
CPT/HCPCS: 36415; 72072; 72100; 80048; 81001; 85025; 99284

== ENCOUNTER → 2022-03-03 10:26 | Outpatient (BNVA) | payer MEDICARE, OTHER, SELFPAY | PROVIDERS: PCP Family Medicine; Visit Provider Family Medicine | DX: R35.0 Frequency of micturition (principal) | CPT/HCPCS: 81000; 87086 ==

== ENCOUNTER → 2022-03-04 08:29 | Outpatient (BNVA) | payer MEDICARE, OTHER, SELFPAY | PROVIDERS: PCP Family Medicine; Visit Provider Physician Assistant | DX: S32.000A Wedge compression fracture of unspecified lumbar vertebra, initial encounter for closed fracture (principal); W19.XXXA Unspecified fall, initial encounter; M85.88 Other specified disorders of bone density and structure, other site; R10.2 Pelvic and perineal pain | CPT/HCPCS: 72170; 99203 ==

== ENCOUNTER 2022-03-14 07:27 | Outpatient (CLI) | payer MEDICARE, OTHER, SELFPAY ==
--- NOTE | 2022-03-14 08:00 | MR_ITS ---
WS: [id number] MRI LUMBAR SPINE NONCONTRAST HISTORY: compression fracture COMPARISON: Lumbar spine radiograph 02/25/[address] lumbar spine on 02/09/2022. TECHNIQUE: Sagittal and axial multisequence imaging is submitted. Marked increase in the thoracic kyphosis seen on the survey image. Mild straightening of the normal lumbar lordosis. Moderate increased T2 signal throughout the L3 vert ebral body extending into the pedicles. Patient has a known L3 fracture with retropulsion by 6.5 mm a s described on a prior CT. Mild disc space narrowing and desiccation. Conus terminates normally at L1. L1-L2: Mild bilateral facet joint arthritis. No high-grade stenosis. L2-L3: Diffuse annular disc bulging. Ligamentum flavum and facet arthritis. Retropulsion of the L3 ve rtebral body with significant encroachment and deformity upon the thecal sac extending into the subar ticular recesses and the foramen. Marked stenosis with thecal sac deformity centrally and LEFT subart icular recess. High-grade effacement of fat in the LEFT foramen and mild on the RIGHT. There is signi ficant encroachment upon the LEFT L2 and L3 nerve roots. L3-L4: Bilateral facet joint arthritis and ligamentum flavum hypertrophy. Mild bilateral subarticular encroachment. Moderate LEFT and mild RIGHT foraminal stenosis. L4-L5: Diffuse annular disc bulging with ligamentum flavum hypertrophy. Disc encroachment into the murray barticular recesses. There is moderate encroachment upon the traversing L5 nerve roots. Mild to moder ate bilateral foraminal stenosis. L5-S1: Mild disc bulging with a very tiny central disc protrusion. Mild facet arthritis. Moderate nakita ateral foraminal stenosis and mild subarticular recess encroachment. LEFT renal cyst 1.2 cm. MR/MR lumbar spine wo con* [id number] IMPRESSION: 1. Acute L3 50% compression fracture with retropulsion of the posterior verteb ral body by 6.5 mm. 2. Significant central and LEFT subarticular recess stenosis. Significant encr oachment on the LEFT L2 and L3 nerve roots. 3. Moderate LEFT L3-4 foraminal stenosis and mild on the RIGHT. 4. Mild bilateral subarticular recess encroachment at L3-4. 5. Moderate stenosis traversing L5 nerve roots at the L4-5 level with mild to moderate bilateral foraminal stenosis. 6. Moderate bilateral foraminal stenosis and mild subarticular recess stenosis at L5-S1.
== END 2022-03-14 07:28 | disposition home or self-care (01) ==
LOC: RAD 07:27
PROVIDERS: PCP Family Medicine; Visit Provider Physician Assistant
DX: M48.56XA Collapsed vertebra, not elsewhere classified, lumbar region, initial encounter for fracture (principal); M48.061 Spinal stenosis, lumbar region without neurogenic claudication; M48.07 Spinal stenosis, lumbosacral region
CPT/HCPCS: 72148

== ENCOUNTER → 2022-03-20 10:53 | Outpatient (BNVA) | payer MEDICARE, OTHER, SELFPAY | PROVIDERS: PCP Family Medicine; Visit Provider Orthopaedic Surgery | DX: S32.030A Wedge compression fracture of third lumbar vertebra, initial encounter for closed fracture (principal); W19.XXXA Unspecified fall, initial encounter | CPT/HCPCS: 99214 ==

== ENCOUNTER 2022-03-26 13:40 | Observation (INO) | payer MEDICARE, OTHER, SELFPAY ==
--- NOTE | 2022-03-24 13:39 | ECG_ITS ---
[facility] Test Date: 2022-03-24 Pat Name: Mellissa Hurt Department: Room: Gender: Female Calciner Feeder: : 1945 Requested By: Gerardo Peña Order Number: [id number] Marge MD: Justin Padilla M.D. Measurements Intervals Wheelwright Rate: 100 P: 140 MI: 132 QRS: 47 QRSD: 74 T: 140 QT: 338 QTc: 437 Interpretive Statements Sinus TACHYCARDIA WITH OCCASIONAL ECTOPIC PREMATURE COMPLEXES POSSIBLE LEFT ATRIAL ENLARGEMENT [-0.1mV P-WAVE IN V1/V2] NONSPECIFIC ST & T-WAVE ABNORMALITY No previous ECG available for comparison Electronically Signed On 03-24-2022 14:39:57 GERMAN PROFESSOR by Justin Padilla M.D. [id number]
[2022-03-24 13:49] VITALS: BMI 22.5
[2022-03-24 14:04] LABS: Basophils % 0.6 %; Eosinophils # 0.1 10^3/uL (0.0-0.8); Eosinophils % 1.6 %; Hematocrit 45.6 % (37.0-47.0); Hemoglobin 14.9 g/dL (11.5-15.3); Lymphocytes # 1.7 10^3/uL (0.8-4.8); Lymphocytes % 26.6 %; Mean Corpuscular HGB Conc 32.7 g/dL (30.0-36.0); Mean Corpuscular Volume 91.8 fl (81-99); Mean Platelet Volume 8.7 fL (7.4-10.4); Monocytes # 0.6 10^3/uL (0.2-0.9); Monocytes % 8.7 %; Neutrophils # 3.93 10^3/uL (1.8-7.7); Neutrophils % 62.2 %; Nucleated Red Blood Cells % 0 %; Platelet Count 230 10^3/cmm (130-400); Red Blood Count 4.97 10^6/uL (4.1-5.3); White Blood Count 6.3 10^3/uL (4.0-10.0)
[2022-03-24 14:22] LABS: Anion Gap 13.1 (5-19); Blood Urea Nitrogen 19 mg/dL (8-23); Calcium 9.5 mg/dL (8.5-10.5); Carbon Dioxide 29 mmol/L (22-29); Chloride 99 mmol/L (98-107); Glucose 136 mg/dL (65-115); Osmolality Calculated 288 mOsm/kg (285-295); Potassium 4.1 mmol/L (3.5-5.1); Sodium 137 mmol/L (136-145)
--- NOTE | 2022-03-24 14:24 | P.ANESASSM_ITS ---
Pre-Anesthetic Assessment Height/Weight: Height 1.7 m Weight 65.317 kg Preop Diagnosis: Lumbar compression fracture, lumbar stenosis with neurogenic claudication Operation Date: 03/26/22 10:35 Proposed Procedures p Kyphoplasty:L3 Compression fracture 99176,Decopression 27963,M48.062 S32.000(Not Applicable) - DO rdaha Pimentel Lumbar Spine Decompression:L2/3 L3/4(Not Applicable) - Barry Rodrigez DO Familial anesthetic complications: none Was Beta Sheryl taken within 24 hours: N/A Was Clonidine taken within 24 hours: N/A Social No alcohol and No tobacco Exam alert, oriented x 3, clear to auscultation bilaterally and regular rate & rhythm Airway Submandibular: within normal limits Cervical ROM: within normal limits Mallampati: Class II Dentition: partials CV/HEM Coronary Artery Disease (CABG) and Hypertension GI Gastroesophageal Reflux Disease Musc/skel Lower Back Pain and Osteoarthritis/DJD Neuropsych Anxiety and Cerebrovascular Accident Anesthetic Plan ASA status: 3 Anesthesia: General Medications/Allergies Home Medications Medication Instructions Recorded Confirmed Last Taken Type amlodipine 2.5 mg tablet 2.5 mg PO BEDTIME 08/07/21 03/24/22 03/23/22 History aspirin 81 mg tablet,delayed 81 mg PO QAM 08/07/21 03/24/22 03/21/22 History release cholecalciferol (vitamin D3) 25 25 mcg PO DAILY 08/07/21 03/24/22 03/24/22 History mcg (1,000 unit) capsule (Vitamin D3) clopidogrel 75 mg tablet 75 mg PO QAM 08/07/21 03/24/22 03/21/22 History losartan 100 mg tablet 100 mg PO QAM 08/07/21 03/24/22 03/24/22 History duloxetine 30 mg capsule,delayed 30 mg PO DAILY #90 caps 11/13/21 03/24/22 03/24/22 Rx release atorvastatin 80 mg tablet 80 mg PO DAILY 02/26/22 03/24/22 03/24/22 History brimonidine 0.2 %-timolol 0.5 % 1 drp ophthalmic (eye) BID 02/26/22 03/24/22 03/23/22 History eye drops (Combigan) cetirizine 10 mg tablet 10 mg PO DAILY PRN Allergy Symptoms 02/26/22 03/24/2202/21/23 History cyanocobalamin (vitamin B-12) 1,000 mcg PO DAILY 02/26/22 03/24/22 03/24/22 History 1,000 mcg capsule docusate sodium 100 mg capsule 100 mg PO BID 02/26/22 03/24/22 03/24/22 History donepezil 10 mg tablet 10 mg PO DAILY 02/26/22 03/24/22 03/24/22 History pantoprazole 40 mg tablet,delayed 40 mg PO QAM #90 tabs 02/27/22 03/24/22 03/24/22 Rx release oxycodone-acetaminophen 5 mg-325 1 - 2 tab PO Q4H PRN pain 03/24/22 03/24/22 03/24/22 History mg tablet (Percocet) Allergies Allergy/AdvReac Type Severity Reaction Status Date / Time lisinopril Allergy cough Verified 03/24/22 13:42 Sulfa (Sulfonamide Allergy severe Verified 03/24/22 13:42 Antibiotics) reaction landing her in hospital beta blockers Allergy makes her Uncoded 03/24/22 13:42 cough PFSH Anesthesia Medical History Anxiety Atherosclerosis Cognitive decline Coronary artery disease Diverticulosis History of myocardial infarction Hyperlipidemia Hypertension Osteoporosis Surgical History History of cataract extraction with lens replacement History of coronary artery bypass graft x 2 History of right mastoidectomy Social History Smoking and tobacco status: former smoker Quit status (tobacco): has quit using tobacco Year quit tobacco: 2012 Alcohol intake: never Household members: spouse Marital status: Number of children: 3 Number of grandchildren: 6 [employer]: [employer]ational Agree to transfusion: Yes Data Anesthesia 03/24/22 13:50 03/24/22 13:50 Short CBC 03/24/22 Range/Units 13:50 WBC 6.3 (4.0-10.0) 10^3/uL Hgb 14.9 (11.5-15.3) g/dL Hct 45.6 (37.0-47.0) % MCV 91.8 (81-99) fl Plt Count 230 (130-400) 10^3/cmm Neut % (Auto) 62.2 % Neut # (Auto) 3.93 (1.8-7.7) 10^3/uL BMP 03/24/22 13:50 Sodium 137 Potassium 4.1 Chloride 99 Carbon Dioxide 29 BUN 19 Calcium 9.5 Cardiac Studies: No Data to Display
[2022-03-26] VITALS (25 sets, daily range): BP systolic 132–182; BP diastolic 63–99; PULSE 70–126; RESP 11–20; TEMP 36.5–37.2; O2SAT 92–99; BMI 22.5
--- NOTE | 2022-03-26 09:25 | W.PM.OPSUD ---
Surgery/Procedure H&P Update DATE OF PROCEDURE: March 26, 2022 DATE H&P PERFORMED: 03/20/22 H&P UPDATE INFORMATION: I have reviewed H&P completed within last 30 days, I have examined patient prior to procedure and No changes to prior documentation PREOP DIAGNOSIS: Lumbar compression fracture, lumbar stenosis with neurogenic claudication PLANNED PROCEDURE: Operation Date: 03/26/22 10:35 Proposed Procedures p Kyphoplasty:L3 Compression fracture 75990,Decopression 92330,M48.062 S32.000(Not Applicable) - DO radha Pimentel Lumbar Spine Decompression:L2/3 L3/4(Not Applicable) - Barry Rodrigez DO
--- NOTE | 2022-03-26 09:26 | W.PM.OPSUD ---
Surgery/Procedure H&P Update DATE OF PROCEDURE: March 26, 2022 DATE H&P PERFORMED: 03/20/22 H&P UPDATE INFORMATION: I have reviewed H&P completed within last 30 days, I have examined patient prior to procedure and No changes to prior documentation PREOP DIAGNOSIS: Lumbar compression fracture, lumbar stenosis with neurogenic claudication PLANNED PROCEDURE: Operation Date: 03/26/22 10:35 Proposed Procedures p Kyphoplasty:L3 Compression fracture 17092,Decopression 33174,M48.062 S32.000(Not Applicable) - DO radha Pimentel Lumbar Spine Decompression:L2/3 L3/4(Not Applicable) - Barry Rodrigez DO
[2022-03-26] MEDS: sodium chloride 0.9% 1,000 ML 30 ML IV (09:37)
[2022-03-26] MEDS: HYDROmorphone 1 mg/mL INJ 1 mL 0.5 MG IVP (09:37)
[2022-03-26] MEDS: ondansetron 2 mg/ML SDV 2 mL 4 MG IVP (09:38)
[2022-03-26] MEDS: ceFAZolin 2,000 MG in sodium chloride 0.9% (plus) 50 ML 100 MG IV ×2 (10:03→17:15)
--- NOTE | 2022-03-26 10:06 | P.ANESUD_ITS ---
Pre-Anesthetic Update Pre-Anesthetic Assessment: Date of Surgery/Procedure: 03/26/22 Preop Rafaela gnosis: Lumbar compression fracture, lumbar stenosis with neurogenic claudication Proposed Procedure: Operation Date: 03/26/22 10:35 Proposed Procedures p Kyphoplasty:L3 Compression fracture 67844,Decopression 05320,M48.062 S32.000(Not Applicable) - Barry Rodrigez, DO s Lumbar Spine Decompression:L2/3 L3/4(Not Applicable) - Barry Rodrigez, DO Any changes to Pre-Anesthetic Assessment?: No Last Intake: Intake Last Liquid Date 03/25/22 Last Liquid Time 20:00 Last Solid Date 03/25/22 Last Solid Time 20:00 Labs Last 48hrs: Short CBC 03/24/22 Range/Units 13:50 WBC 6.3 (4.0-10.0) 10^3/ uL Hgb 14.9 (11.5-15.3) g/dL Hct 45.6 (37.0-47.0) % MCV 91.8 (81-99) fl Plt Count 230 (130-400) 10^3/c mm Neut % (Auto) 62.2 % Neut # (Auto) 3.93 (1.8-7.7) 10^3/u L BMP 03/24/22 13:50 Sodium 137 Potassium 4.1 Chloride 99 Carbon Dioxide 29 BUN 19 Creatinine 1.1 H Glucose 136 H Calcium 9.5 Vitals: Temperature 99.0 F 03/26/22 08:40 Temperature Source Temporal Artery S can 03/26/22 08:40 Pulse Rate 84 03/26/22 08:40 Pulse Rhythm 03/26/22 08:48 Pulse Strength 3+ Normal 03/26/22 08:48 Respiratory Rate 16 03/26/22 08:40 Blood Pressure 163/81 03/26/22 08:40 Blood Pressure Petra n 108 03/26/22 08:40 Pulse Oximetry 96 03/26/22 08:40 Oxygen Delivery Me thod 03/26/22 08:48 Exam: Pre-Anes Outpt Exam: alert, oriented x 3, clear to auscultation bilaterally and regular rate & rhythm Cardiac Studies: No Data to Display
[2022-03-26] MEDS: lidocaine-epi 2% 20 mL INJ INJECTION (10:40)
[2022-03-26] MEDS: iohexol 300 mg/mL 50 mL Btl (OR ONLY) XX (10:49)
[2022-03-26] MEDS: vancomycin 1,000 MG SDV 1000 MG XX (11:30)
--- NOTE | 2022-03-26 11:34 | XR_ITS ---
WS: [id number] Lumbar spine, C-arm fluoroscopy views, 03/26/2022 Clinical Data: OR PICS Comparison: None. Findings: Dr. Rodrigez performed an L3 vertebroplasty. XR/XR lumbar spine 1V 64329 Impression: L3 vertebral plasty
--- NOTE | 2022-03-26 12:05 | PC.NURSE ---
Oral airway removed on arrival
[2022-03-26] MEDS: fentaNYL 50 mcg/mL INJ 2mL IVP ×2 (12:14→12:31)
--- NOTE | 2022-03-26 12:23 | P.OP_ITS ---
Operative Report Date of procedure: March 26, 2022 Pre-op diagnosis: Preop Diagnosis Lumbar osteoporotic wedge traumatic compression fracture, lumbar stenosis with neurogenic claudication Post-op diagnosis: same Procedure done: 1. kyphoplasty L3 2. L2/3 laminectomy with partial facetectomy 3. L3/4 laminectomy with partial laminectomy Surgeon: Barry Rodrigez Maintenance Engineer Oil Field: Trino Steven Maintenance Engineer Oil Field: The surgical appliances salesperson, Trino Steven, PAC was needed for his expertise under the microscope. He was important and necessary throughout the procedure to complete in a safe and timely manner. He assisted with patient positioning prepping and draping tissue retraction suctioning of the operative field protection of the dural sac and tissue closure Estimated blood loss (mL): 25 Procedure: 1. kyphoplasty L3 2. L2/3 laminectomy with partial facetectomy 3. L3/4 laminectomy with partial laminectomy Patient Ongoing symptoms Problems All areas appear well-padded. Tenderness first brought to performing kyphoplasty. AP and lateral fluoroscopy were brought in and biplanar fluoroscopy mode. The L3 vertebrae was identified. The patient was then prepped and draped in normal sterile fashion. Skin incision made over the outer edge of the pedicle. The superior lateral border was found and then starting awl was inserted into the pedicle and into the vertebral body. Then the drill was sent in drill was removed and the balloon was brought in and inflated and deflated. This was also done on the right side as well. The awl was brought in followed by the drill followed by balloon inflated deflated. The vertebral body was then filled with cement both the right and left side. The cement filled across to the other side and had good fill of the vertebral body. The tubes were removed AP lateral fluoroscopy ensure that the cement was in good position. Next tension was brought to performing laminectomy. Skin incision made from L2 down to L4. Thoracolumbar fascia was split the subperiosteal dissection was made of the L2 lamina bilaterally as well as the L3 lamina and the L4 lamina. The facets of 3 4 and 2 3 were identified. The retractors were placed. And then rongeur was used to bite spinous process at the 2 3 space and 3 4 space. The spinous processes were removed. And then laminectomy was performed at L2 using a high-speed bur as well as take down the medial aspect of facet joints bilaterally. Next the Kerrison rongeur and curved curettes were used to remove the remaining lamina bilaterally and taken the medial aspect of facet joint down bilaterally. The ligamentum flavum was taken down from L2-L3. Next tension was brought to the laminectomy of L3. The lamina of L3 was taken down with a high- speed bur curved curettes Kerrison rongeurs. Medial aspect of facet joints were taken down with the high-speed bur curved curettes and [place] rongeur bilaterally. Next tension was brought to palpating the L2 nerve was traced out the L2-3 foramen felt to be adequate decompressed bilaterally the L3 nerve was traced around the L3 pedicles and out the L3-4 foramen bilaterally felt to be adequately decompressed. And then the L4 nerve transfer and the L4 pedicles bilaterally. Dura was in good repair wounds were irrigated and closed in a layered fashion with 0 Vicryl 2-0 Vicryl and Monocryl suture.
--- NOTE | 2022-03-26 12:36 | PC.NURSE ---
Remedicated for main management. Repositioned in the bed.
[2022-03-26] MEDS: lactated ringers 1,000 ML 90 ML IV (14:33)
[2022-03-26] MEDS: oxyCODONE-APAP 5-325 mg Tablet PO ×2 (14:34→19:35)
--- NOTE | 2022-03-26 16:53 | ANE.PACU2 ---
Inpatient post-anesthesia follow up: Airway intact: Yes Vital signs: Temperature 97.7 F Pulse Rate 96 Respiratory Rate 18 Blood Pressure 159/74 Pulse Oximetry 94 Oxygen Delivery Me thod Room Air Oxygen Flow Rate 8 Fraction of Inspir ed Oxygen Hydration adequate: Yes Nausea and vomiting: No Pain level: 3 Mental status: Baseline
[2022-03-26] MEDS: docusate sodium 100 mg Capsule PO (17:15)
[2022-03-26] MEDS: ketorolac 30 mg/mL INJ IVP (17:16)
[2022-03-26] MEDS: amlodipine 5 mg Tablet 2.5 MG PO (20:56)
[2022-03-27] MEDS: lactated ringers 1,000 ML 90 ML IV (02:25)
[2022-03-27] MEDS: ceFAZolin 2,000 MG in sodium chloride 0.9% (plus) 50 ML 100 MG IV (02:26)
[2022-03-27] MEDS: ketorolac 30 mg/mL INJ IVP (02:34)
[2022-03-27 04:00] VITALS: BP 197/95; PULSE 66; RESP 17; TEMP 36.8; O2SAT 95
[2022-03-27 04:11] VITALS: RESP 18; O2SAT 94
[2022-03-27] MEDS: oxyCODONE-APAP 5-325 mg Tablet PO (04:11)
[2022-03-27 05:02] VITALS: RESP 22
[2022-03-27] MEDS: morphine 4 mg/mL SDV 1 mL 2 MG IVP (05:02)
[2022-03-27 05:29] VITALS: BP 197/95
[2022-03-27] MEDS: losartan 50 mg Tablet 100 MG PO (05:29)
[2022-03-27] MEDS: clopidogrel 75 mg Tablet PO (05:31)
[2022-03-27] MEDS: pantoprazole DR 40 mg Tablet PO (05:31)
--- NOTE | 2022-03-27 06:48 | PM.PN ---
Subjective Subjective: POD 1 Patient resting comfortably. Mild back pain. Denies any shortness of breath chest pain or headaches. Vitals/I&O/Wt Last Vital Signs Temp 98.2 F 03/27/22 04:00 Pulse 66 03/27/22 04:00 Resp 22 H 03/27/22 05:02 BP 197/95 03/27/22 05:29 Pulse Ox 94 03/27/22 04:11 O2 Del Method 03/27/22 04:00 O2 Flow Rate 8 03/26/22 20:00 03/26/22 03/26/22 03/27/22 14:59 22:59 06:59 Intake Total 2250 / 2250 50 / 2300 1050 / 3350 Output Total 520 / 520 2400 / 2920 Balance 1730 / 1730 50 / 1780 -1350 / 430 Weight last 48 hrs Weight 144 lb Physical Exam Narrative: Patient presents alert and oriented x3 with a good general appearance normal mood and affect. Normal coordination normal stability. Mild tenderness around the incisional site with the incision appear to be clean and dry. No signs of erythema or drainage. No signs of infection. Patient denies any fevers or chills. 4/5 motor strength both lower extremities with negative straight leg raise bilaterally. Calves are supple no medial thigh tenderness. Pulses are 2+ at the dorsalis pedis and posterior tibial region. Good capillary refill throughout normal sensation light touch both lower extremities. Urinary Catheter Management: Barney: Cath Placed During This Visit: yes, but has since been removed by the nurse Reason for Continuing Indwelling Catheter: Perioperative Use in Selected Surgeries Urinary Catheter Date of Insertion: 03/26/22 Urinary Catheter Time of Insertion: 10:30 Date Urinary Catheter Removed: 03/27/22 Time Urinary Catheter Discontinued: 06:47 Data 03/24/22 13:50 03/24/22 13:50 A&P Assessment and plan (1) Compression fracture: Following the kyphoplasty and decompression. We will have physical therapy work with mobilizing. Home with a walker. Discontinue Hemovac drain and Barney catheter. Encourage incentive spirometry at home for pulmonary toilet. Have her follow-up in the office in 1 week's time. (2) Status post lumbar laminectomy: Attestations Medical Necessity Statement*: Home later today if stable Coding Level of Care Code Acute Code for Chg Fwd Diagnoses Compression fracture Status post lumbar laminectomy Z98.890
[2022-03-27 08:00] VITALS: BP 174/65; PULSE 56; RESP 17; TEMP 36.8; O2SAT 93
[2022-03-27] MEDS: duloxetine 30 mg Capsule PO (09:02)
[2022-03-27] MEDS: cholecalciferol (vitamin D3) 1,000 unit Tablet 1000 UNIT PO (09:03)
[2022-03-27] MEDS: donepezil 5 MG Tablet 10 MG PO (09:03)
[2022-03-27] MEDS: cyanocobalamin 1,000 mcg Tablet 1000 MCG PO (09:03)
[2022-03-27] MEDS: atorvastatin 40 mg Tablet 80 MG PO (09:03)
[2022-03-27] MEDS: docusate sodium 100 mg Capsule PO (09:03)
[2022-03-27] MEDS: aspirin 81 mg EC Tablet PO (09:03)
--- NOTE | 2022-03-27 10:47 | PC.CHAP ---
Pastoral Care Encounter/Spiritual Assessment Type of Contact [] Declined public service officer visit [] Patient/Family/Request visit [] Outpatient visit [] Follow-up visit [] Physician referral [] Code/Alert [x] Routine visit [] Staff referral [] Actively dying [] Patient sleeping [] Family support [] [] Out of room [] Palliative care [] [x] Receiving care in room [] Pre-surgical visit [] Trauma [] Long length of stay [] ICU visit [] Other: Relational/Emotional Strength [x] Patient feels connected with others/family/visitors/staff [] Distress [] Loneliness/isolation [] Abandonment Spirituality of Patient [x] Person of Kim [] Attends Jehovah'S Witness of their Kim [x] Believes in Prayer [] Reads Bible or Catholic materials [] There are Spiritual issues to be addressed [place] Machine 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 Interventions [x] Prayer [xx] Active listening [x] Non-anxious presence [x] Spiritual/emotional support [] Crisis/trauma care [x] Spiritual counseling [] Bereavement support [] Provided bereavement packet [] Provided Bible/devotional materials [] Provided toy/stuffed animal, coloring book to patient or family member [] Provided Communion [] Anointing/[place] [] Salvation [x] Completed spiritual assessment [] Other: Impact on Illness or Injury [] Angry [] Fearful [] Anxious [] Often cries [] Exhaustion [] Unable to work [] Unable to attend alevism [] Unable to walk/stand [] Unable to read [] Unable to drive [] Unable to eat/drink [] Unable to sleep [] Unable to be with family [] Patient intubated [] Other: Summary back surgery secon time has a good attitude family + 1 well go home Time spent with patient 10 mins
[2022-03-27 11:23] VITALS: BP 174/65; PULSE 56; RESP 17; TEMP 36.8; O2SAT 93
== END 2022-03-27 10:35 | disposition home health service (06) ==
LOC: MEDSURG 13:41
PROVIDERS: Anesthesiology; Admitting Provider Orthopaedic Surgery; PCP Family Medicine; Visit Provider Orthopaedic Surgery
PROC: (CPT 22514; principal; 2022-03-26 10:05)
PROC: (CPT 63005; 2022-03-26 10:05)
DX: S32.020A Wedge compression fracture of second lumbar vertebra, initial encounter for closed fracture (principal); S32.030A Wedge compression fracture of third lumbar vertebra, initial encounter for closed fracture; S32.040A Wedge compression fracture of fourth lumbar vertebra, initial encounter for closed fracture; X58.XXXA Exposure to other specified factors, initial encounter; M48.062 Spinal stenosis, lumbar region with neurogenic claudication; Z95.1 Presence of aortocoronary bypass graft; I25.10 Atherosclerotic heart disease of native coronary artery without angina pectoris; I10 Essential (primary) hypertension; K21.9 Gastro-esophageal reflux disease without esophagitis; F41.9 Anxiety disorder, unspecified; Z86.73 Personal history of transient ischemic attack (TIA), and cerebral infarction without residual deficits; Z79.82 Long term (current) use of aspirin; Z87.891 Personal history of nicotine dependence
CPT/HCPCS: 22514; 63047; 63048; 51702; 72020; 76000; 80048; 85025; 93005; 96374; 96376; 97110; 97116; 97161; G0378; J0690; J1100; J1170; J1885; J2270; J2405; J2704; J2710; J3010; J3370; J3490; J7030; J7120

== ENCOUNTER → 2022-03-31 12:22 | Outpatient (BNVA) | payer MEDICARE, OTHER, SELFPAY | PROVIDERS: PCP Family Medicine; Visit Provider Family Medicine | DX: R35.0 Frequency of micturition (principal) | CPT/HCPCS: 81000 ==

== ENCOUNTER → 2022-04-10 13:21 | Outpatient (BNVA) | payer MEDICARE, OTHER, SELFPAY | PROVIDERS: PCP Family Medicine; Visit Provider Orthopaedic Surgery | DX: Z47.89 Encounter for other orthopedic aftercare (principal) | CPT/HCPCS: 99024 ==

== ENCOUNTER → 2022-04-16 11:49 | Outpatient (BNVA) | payer MEDICARE, OTHER, SELFPAY | PROVIDERS: PCP Family Medicine; Visit Provider Family Medicine | DX: N23 Unspecified renal colic (principal); G25.81 Restless legs syndrome; Z98.890 Other specified postprocedural states | CPT/HCPCS: 81000; 82607; 82728; 87086 ==

== ENCOUNTER → 2022-05-02 10:14 | Outpatient (BNVA) | payer MEDICARE, OTHER, SELFPAY | PROVIDERS: PCP Family Medicine; Visit Provider Family Medicine | DX: R39.9 Unspecified symptoms and signs involving the genitourinary system (principal) | CPT/HCPCS: 81000; 87086 ==

== ENCOUNTER → 2022-05-08 10:34 | Outpatient (BNVA) | payer MEDICARE, OTHER, SELFPAY | PROVIDERS: PCP Family Medicine; Visit Provider Orthopaedic Surgery | DX: Z47.89 Encounter for other orthopedic aftercare (principal) | CPT/HCPCS: 99024 ==

== ENCOUNTER 2022-05-15 08:08 | Outpatient (CLI) | payer MEDICARE, OTHER, SELFPAY ==
--- NOTE | 2022-05-15 08:30 | USCV_ITS ---
Mellissa Hurt Age: 77 Gender: F : 1945 Exam Date: 05/15/2022 09:25 Ordering Phys: Delio Riggins MD ([email or web address]) Technologist: Elise Byers Exam Location: [facility] [place] Indication: Hx of CABG 2 vessel in 2006. Now abnormal ECG BP: 140 / 70 HR: 60 Rhythm: Sinus Technical Quality: Adequate MEASUREMENTS (Male / Female) Normal Values 2D ECHO LV Diastolic Diameter PLAX 3.7 cm 4.2 - 5.9 / 3.9 - 5.3 cm LV Systolic Diameter PLAX 2.2 cm LV Chamber Size 3.3 cm IVS Diastolic Thickness 1.1 cm 0.6 - 1.0 / 0.6 - 0.9 cm IVS Systolic Thickness 1.3 cm LVPW Diastolic Thickness 1.2 cm 0.6 - 1.0 / 0.6 - 0.9 cm LVPW Systolic Thickness 1.3 cm RV Chamber Size 3.5 cm LVOT Diameter 2.0 cm LV Ejection Fraction 2D Teich 70.0 % LV Ejection Fraction MOD 2C 64.5 % LV Ejection Fraction 2C AL 66.2 % LA Diameter 3.4 cm LA Width 2.0 cm LA Height 3.2 cm RA Width 3.2 cm RA Height 3.2 cm Aorta at Sinotubular Diameter 3.2 cm IVC Diameter 1.3 cm M-MODE Aortic Annulus Diameter 3.4 cm LA Ao Ratio MM 1.1 MV E Point Septal Separation 0.5 cm DOPPLER AV Peak Velocity 153.0 cm/s LVOT Peak Velocity 100.0 cm/s AV Area Cont Eq vti 2.3 cm squared AV Area Cont Eq pk 2.1 cm squared MV Peak Velocity 115.0 cm/s MV Area PHT 3.0 cm squared Mitral E to A Ratio 0.9 MV E' Velocity 51.0 cm/s Mitral E to MV E' Ratio 11.2 Mitral E to LV E' Lateral Ratio 9.7 Mitral E to LV E' Septal Ratio 13.5 TR Peak Velocity 286.5 cm/s TR Peak Gradient 32.8 mmHg TR Mean Velocity 227.0 cm/s TR Mean Gradient 23.8 mmHg TR Velocity Time Integral 105.3 cm TV Peak E Velocity 43.0 cm/s Right Atrial Pressure 3.0 mmHg Pulmonary Artery Systolic Pressu 35.8 mmHg PV Peak Velocity 103.0 cm/s RV Acceleration Time 0.1 s RV Ejection Time 0.3 s RV AcT/ET 0.3 FINDINGS Left Ventricle Normal left ventricular size and systolic function, EF 59 %. Mild left ventricular hypertrophy. No regional wall motion abnormalities. Grade I/IV diastolic dysfunction (abnormal relaxation filling pattern), normal to mildly elevated filling pressures. Right Ventricle The right ventricle is normal in size and function. Right Atrium The right atrium is normal in size. Left Atrium The left atrium is normal in size. Mitral Valve Thickened mitral valve. Mild-moderate mitral valve regurgitation. Aortic Valve Thickened aortic valve. Trace to mild aortic valve regurgitation. Tricuspid Valve Mild tricuspid valve regurgitation. Pulmonic Valve No gross abnormalities noted Pericardium Normal pericardium without effusion. Aorta Normal aortic annulus size. IVC Normal inferior vena cava. CONCLUSIONS Normal left ventricular size and systolic function, EF 59 %. Mild left ventricular hypertrophy. No regional wall motion abnormalities. Grade I/IV diastolic dysfunction (abnormal relaxation filling pattern), normal to mildly elevated filling pressures. Thickened mitral valve. Mild-moderate mitral valve regurgitation. Thickened aortic valve. Trace to mild aortic valve regurgitation. Mild tricuspid valve regurgitation. Estimated pulmonary artery peak systolic pressure 36 mmHg There is no pericardial effusion. There are no intracardiac masses. No similar previous studies are available for comparison Dr Delio Riggins MD [facility] (Electronically Signed) Final Date: 22 May 2022 00:00 S
--- NOTE | 2022-05-15 09:15 | USCV_ITS ---
Mellissa Hurt Age: 77 Gender: F : 1945 Exam Date: 05/15/2022 09:02 Ordering Phys: Delio Riggins MD ([email or web address]) Technologist: Elise Byers Exam Location: [facility] [place] Indication: HX OF CVA Risk Factors: Unknown Previous Vascular Surgery: CABG Right Brachial BP: / Left Brachial BP: / Right Left Velocity (cm/s) Spectral Plaque Velocity (cm/s) Spectral Plaque Syst/Diast Broadening Syst/Diast Broadening 89.40/ 11.50 Prox CCA 84.60 / 10.20 37.80/ 8.60 Mid CCA 70.60 / 13.50 56.20/ 7.40 Distal CCA 63.50 / 8.60 40.30/ 9.10 Hetro Prox ICA 49.00 / 9.30 Hetro 34.30/ 6.50 Mid ICA 68.50 / 15.70 63.10/ 14.50 Distal ICA 47.60 / 9.60 118.50 ECA 115.90 1.67 ICA/CCA 0.97 Antegrade Vertebral Antegrade 32.30/ 6.20 cm/s 27.50/ 6.90 cm/s Bi Subclavian Bi 116.4 143.1 0 5 FINDINGS Moderate plaque at the left bifurcation. Minimal plaque in the internal carotid artery Intimal thickening and minimal plaques in the right bifurcation and internal carotid artery Antegrade flow in the vertebral arteries bilaterally Normal Doppler flow velocities in the external carotid, vertebral and subclavian arteries CONCLUSIONS Moderate plaque at the left bifurcation with a mild diffuse plaque in the internal carotid artery, suggesting less than 50% stenosis. Intimal thickening and minimal plaques in the right bifurcation and internal carotid artery No significant stenosis in the vertebral, subclavian and external carotid arteries, based on the above findings Dr Delio Riggins MD [facility] (Electronically Signed) Final Date: 21 May 2022 23:54 S
== END 2022-05-15 08:09 | disposition home or self-care (01) ==
LOC: RAD 08:12
PROVIDERS: PCP Family Medicine; Visit Provider Internal Medicine Cardiovascular Disease
DX: I65.23 Occlusion and stenosis of bilateral carotid arteries (principal); I08.1 Rheumatic disorders of both mitral and tricuspid valves; I10 Essential (primary) hypertension; I25.10 Atherosclerotic heart disease of native coronary artery without angina pectoris; R94.31 Abnormal electrocardiogram [ECG] [EKG]; Z86.73 Personal history of transient ischemic attack (TIA), and cerebral infarction without residual deficits; Z95.1 Presence of aortocoronary bypass graft
CPT/HCPCS: 93306; 93880; 99204

== ENCOUNTER → 2022-05-21 15:12 | Outpatient (BNVA) | payer MEDICARE, OTHER, SELFPAY | PROVIDERS: PCP Family Medicine; Visit Provider Obstetrics & Gynecology | DX: N39.0 Urinary tract infection, site not specified (principal) | CPT/HCPCS: 81000; 87077; 87086; 87184 ==

== ENCOUNTER → 2022-05-21 15:21 | Outpatient (BNVA) | payer MEDICARE, OTHER, SELFPAY | PROVIDERS: PCP Family Medicine; Visit Provider Obstetrics & Gynecology | DX: R93.89 Abnormal findings on diagnostic imaging of other specified body structures (principal) | CPT/HCPCS: 76830 ==

== ENCOUNTER 2022-06-12 12:35 | Day surgery (SDC) | payer MEDICARE, OTHER, SELFPAY ==
[2022-06-11 12:18] VITALS: BMI 22.4
[2022-06-12] VITALS (11 sets, daily range): BP systolic 132–195; BP diastolic 65–101; PULSE 61–95; RESP 12–18; TEMP 36.2–36.6; O2SAT 93–100
[2022-06-12] MEDS: sodium chloride 0.9% 1,000 ML 30 ML IV (13:15)
--- NOTE | 2022-06-12 13:21 | P.ANESASSM_ITS ---
Pre-Anesthetic Assessment Height/Weight: Height 1.7 m Weight 64.864 kg Temp Pulse Resp BP Pulse Ox O2 Del Method 97.9 F 61 18 184/77 94 Room Air 06/12/22 13:02 06/12/22 13:02 06/12/22 13:02 06/12/22 13:02 06/12/22 13:02 06/12/22 13:02 Operation Date: 06/12/22 14:35 Proposed Procedures p Hysteroscopy with Myosure, endometrial sampling 91767, Possible endometrial sampling 71217,N85.8(Not Applicable) - Malcolm Ken MD s Poylpectomy(Not Applicable) - Malcolm Ken MD Familial anesthetic complications: None Was Beta Sheryl taken within 24 hours: N/A Was Clonidine taken within 24 hours: N/A Last intake: Intake Last Liquid Date 06/12/22 Last Liquid Time 08:30 Last Solid Date 06/11/22 Last Solid Time 20:30 Social No alcohol and No tobacco Exam alert, oriented x 3, clear to auscultation bilaterally and regular rate & rhythm Airway Mallampati: Class II Dentition: partials CV/HEM Hypertension cABG GI Gastroesophageal Reflux Disease Neuropsych Anxiety and Cerebrovascular Accident (no residual deficits) Anesthetic Plan ASA status: 3 Medications/Allergies Home Medications Medication Instructions Recorded Confirmed Last Taken Type aspirin 81 mg tablet,delayed 81 mg PO QAM 08/07/21 06/11/22 06/06/22 History release clopidogrel 75 mg tablet 75 mg PO QAM 08/07/21 06/11/22 06/06/22 History losartan 100 mg tablet 100 mg PO QAM 08/07/21 06/11/22 06/11/22 History atorvastatin 80 mg tablet 80 mg PO DAILY 02/26/22 06/11/22 06/10/22 History brimonidine 0.2 %-timolol 0.5 % 1 drp ophthalmic (eye) BID 02/26/22 06/11/22 06/12/22 History eye drops (Combigan) cetirizine 10 mg tablet 10 mg PO DAILY PRN Allergy Symptoms 02/26/22 06/11/22 06/11/22 History donepezil 10 mg tablet 10 mg PO DAILY 02/26/22 06/11/22 06/12/22 History cholecalciferol (vitamin D3) 25 25 mcg PO DAILY 90 days #90 caps 04/07/22 06/11/22 06/12/22 Rx mcg (1,000 unit) capsule (Vitamin D3) duloxetine 30 mg capsule,delayed 30 mg PO DAILY #90 caps 04/07/22 06/11/22 06/12/22 Rx release amlodipine 5 mg tablet 10 mg PO DAILY #180 tabs 04/30/22 06/11/22 06/12/22 Rx hydralazine 25 mg tablet 25 mg PO TID #270 tabs 05/14/22 06/11/22 06/12/22 Rx docusate sodium 100 mg capsule See Rx Instructions .Route 05/28/22 06/11/22 Unknown Rx .COMPLEX #180 caps tramadol 50 mg tablet 50 mg PO BID PRN pain #20 tabs 05/28/22 05/28/22 Unknown Rx tramadol 50 mg tablet 50 mg PO BID PRN pain #30 tabs 05/28/22 06/11/22 06/11/22 Rx ropinirole 0.5 mg tablet 0.5 mg PO .at bedtime #30 tabs 06/03/22 06/11/22 06/10/22 Rx Allergies Allergy/AdvReac Type Severity Reaction Status Date / Time lisinopril Allergy cough Verified 06/11/22 12:13 Sulfa (Sulfonamide Allergy severe Verified 06/11/22 12:13 Antibiotics) reaction landing her in hospital beta blockers Allergy makes her Uncoded 06/11/22 12:13 cough Current Medications Generic Name Dose Route Start Last Admin Trade Name Freq PRN Reason Stop Dose Admin Sodium Chloride 1,000 mls @ 30 mls/hr 06/12/22 12:45 06/12/22 13:15 Sodium Chloride 0.9% IV 06/13/22 12:44 30 mls/hr .Q24H RONNIE Administration PFSH Anesthesia Medical History (Updated 06/02/22 @ 15:36 by Malcolm Ken MD) Anxiety Atherosclerosis Cognitive decline Coronary artery disease Diverticulosis History of myocardial infarction Hyperlipidemia Hypertension Osteoporosis UTI (urinary tract infection) Surgical History History of cataract extraction with lens replacement History of coronary artery bypass graft x 2 History of right mastoidectomy Social History (Updated 05/28/22 @ 09:57 by Heather Kinsey) Smoking and tobacco status: former smoker Quit status (tobacco): has quit using tobacco Year quit tobacco: 2013 Alcohol intake: never Substance/Drug Use: never Household members: spouse Marital status: Number of children: 3 Number of grandchildren: 6 Kim/Yazidism: Yarsani Agree to transfusion: Yes Data Anesthesia Cardiac Studies: Echocardiogram 05/15/22
--- NOTE | 2022-06-12 14:13 | W.PM.OPSFHP ---
Same Day Surgery H&P Indication for Procedure/HPI DATE OF PROCEDURE: June 12, 2022 CHIEF COMPLAINT/INDICATIONFOR SURGICAL PROCEDURE: abnormal endometrium on pelvic sono PREOP DIAGNOSIS: abnormal endometrium on pelvic sono PLANNED PROCEDURE: Operation Date: 06/12/22 14:35 Proposed Procedures p Hysteroscopy with Myosure, endometrial sampling 19949, Possible endometrial sampling 90251,N85.8(Not Applicable) - Malcolm Ken MD s Poylpectomy(Not Applicable) - Malcolm Ken MD Medications/Allergies* Home Medications Medication Instructions Recorded Confirmed Type aspirin 81 mg tablet,delayed 81 mg PO QAM 08/07/21 06/11/22 History release clopidogrel 75 mg tablet 75 mg PO QAM 08/07/21 06/11/22 History losartan 100 mg tablet 100 mg PO QAM 08/07/21 06/11/22 History atorvastatin 80 mg tablet 80 mg PO DAILY 02/26/22 06/11/22 History brimonidine 0.2 %-timolol 0.5 % 1 drp ophthalmic (eye) BID 02/26/22 06/11/22 History eye drops (Combigan) cetirizine 10 mg tablet 10 mg PO DAILY PRN Allergy Symptoms 02/26/22 06/11/22 History donepezil 10 mg tablet 10 mg PO DAILY 02/26/22 06/11/22 History Allergies/Adverse Reactions Allergy/AdvReac Type Severity Reaction Status Date / Time lisinopril Allergy cough Verified 06/11/22 12:13 Sulfa (Sulfonamide Allergy severe Verified 06/11/22 12:13 Antibiotics) reaction landing her in hospital beta blockers Allergy makes her Uncoded 06/11/22 12:13 cough Current Medications: Generic Name Dose Route Start Last Admin Trade Name Freq PRN Reason Stop Dose Admin Sodium Chloride 1,000 mls @ 30 mls/hr 06/12/22 12:45 06/12/22 13:15 Sodium Chloride 0.9% IV 06/13/22 12:44 30 mls/hr .Q24H RONNIE Administration Pertinent History/Comorbid Conditions* Medical History (Updated 06/02/22 @ 15:36 by Malcolm Ken MD) Anxiety Atherosclerosis Cognitive decline Coronary artery disease Diverticulosis History of myocardial infarction Hyperlipidemia Hypertension Osteoporosis UTI (urinary tract infection) Surgical History (Updated 03/27/22 @ 06:49 by Trino Steven PA-C) History of cataract extraction with lens replacement History of coronary artery bypass graft x 2 History of right mastoidectomy Social History Smoking and tobacco status: former smoker Quit status (tobacco): has quit using tobacco Year quit tobacco: 2012 Alcohol intake: never Substance/Drug Use: never Household members: spouse Marital status: Number of children: 3 Number of grandchildren: 6 Kim/Presybeterian: Cheondoism Agree to transfusion: Yes Pertinent Exam Findings alert, oriented x 3, clear to auscultation bilaterally and regular rate & rhythm Recommendations Surgery/Procedure today Coding Level of Care Code Acute Code for Chg Fwd Diagnoses Time Spent (min) 15
[2022-06-12] MEDS: fentaNYL 50 mcg/mL INJ 2mL IVP ×2 (14:21→15:19)
--- NOTE | 2022-06-12 17:56 | ANE.PACU2 ---
Inpatient post-anesthesia follow up: Airway intact: Yes Vital signs: Temperature 97.5 F Pulse Rate 75 Respiratory Rate 16 Blood Pressure 147/68 Pulse Oximetry 94 Oxygen Delivery Me thod Room Air Oxygen Flow Rate 6 Fraction of Inspir ed Oxygen Hydration adequate: Yes Nausea and vomiting: No Pain level: 1 Mental status: Baseline
--- NOTE | 2022-06-12 23:25 | PM.OP ---
Operative Report Date of procedure: June 12, 2022 Pre-op diagnosis: Preop Diagnosis abnormal endometrium on pelvic sono Post-op diagnosis: same Post-op findings: uterus sounded to 8 cm moderate amount of endometrial tissue one 3 cm endometrial polyp Procedure done: hysteroscopy endometrial sampling and polypectomy with Myosure device Specimens removed/disposition: endometrial tissue Surgeon: Malcolm Ken M.D. Anesthesia: MAC Estimated blood loss (mL): 0 Complications: none Condition: stable Disposition: PACU Brief History: patient with thickened irregular endometrium on pelvic ultrasound Procedure: Informed consent signed. Patient taken to the operating room.? Anesthesia induced.? Patient was placed in dorsolithotomy position, prepped and draped for hysteroscopy.? A bivalve speculum was placed in the vagina.? 3+ cystocele was noted. The uterus was sounded to 8 cm. The anterior lip of the cervix was grasped with a sharp-toothed tenaculum.? The cervix was serially dilated with Hegar dilators.? .? A hysteroscope was placed into the endometrial cavity.? There was moderate endometrial tissue.? One 3 cm endometrial broad-based polyp can be seen. The Myosure device was then used to remove the endometrial polyp and also obtain endometrial tissue. These were sent to pathology. The hysteroscope was then removed.? The sharp-toothed tenaculum was removed.? There was no bleeding from the endometrial cavity or cervix.? The patient was then placed supine and awakened and taken to the PACU. Postop condition:? stable EBL:? none Sponge and instruments counts were normal x 2 Complications:? none
== END 2022-06-12 18:05 | disposition home or self-care (01) ==
PROVIDERS: PCP Family Medicine; Visit Provider Obstetrics & Gynecology
PROC: 0UDB8ZZ Extraction of Endometrium, Via Natural or Artificial Opening Endoscopic (ICD-10-PCS; CPT 58558; principal; 2022-06-12 14:25)
PROC: (CPT 58558; 2022-06-12 14:25)
DX: N84.0 Polyp of corpus uteri (principal); I10 Essential (primary) hypertension; K21.9 Gastro-esophageal reflux disease without esophagitis; I25.10 Atherosclerotic heart disease of native coronary artery without angina pectoris; I25.2 Old myocardial infarction; E78.5 Hyperlipidemia, unspecified; Z79.82 Long term (current) use of aspirin; Z79.899 Other long term (current) drug therapy; Z87.891 Personal history of nicotine dependence; Z86.73 Personal history of transient ischemic attack (TIA), and cerebral infarction without residual deficits; Z95.1 Presence of aortocoronary bypass graft; Z88.2 Allergy status to sulfonamides
CPT/HCPCS: 58558; 88305; 88342; J1100; J2405; J2704; J3010; J7030

== ENCOUNTER 2022-06-13 16:42 | Inpatient (IN) | payer MEDICARE, OTHER, SELFPAY ==
[2022-06-13 16:57] VITALS: BP 172/68; PULSE 75; RESP 19; TEMP 36.4; O2SAT 95; BMI 25.0
[2022-06-13 18:48] LABS: Basophils % 0.2 %; Eosinophils % 0.3 %; Hemoglobin 12.9 g/dL (11.5-15.3); Lymphocytes # 1.8 10^3/uL (0.8-4.8); Lymphocytes % 18.3 %; Mean Corpuscular HGB Conc 32.3 g/dL (30.0-36.0); Mean Corpuscular Hemoglobin 29.5 pg (28.0-34.0); Mean Corpuscular Volume 91.3 fl (81-99); Mean Platelet Volume 8.1 fL (7.4-10.4); Monocytes # 0.7 10^3/uL (0.2-0.9); Monocytes % 6.7 %; Neutrophils # 7.12 10^3/uL (1.8-7.7); Neutrophils % 73.9 %; Nucleated Red Blood Cells % 0 %; Platelet Count 231 10^3/cmm (130-400); Red Blood Count 4.38 10^6/uL (4.1-5.3); White Blood Count 9.6 10^3/uL (4.0-10.0)
[2022-06-13 19:05] LABS: Alanine Aminotransferase 10 U/L (0-33); Albumin Level 3.9 g/dL (3.5-5.2); Alkaline Phosphatase 100 U/L (35-105); Anion Gap 14.5 (5-19); Aspartate Amino Transferase 16 U/L (0-32); Blood Urea Nitrogen 20 mg/dL (8-23); Calcium 8.4 mg/dL (8.5-10.5); Carbon Dioxide 22 mmol/L (22-29); Chloride 105 mmol/L (98-107); Globulin 2.4 g/dL (1.3-4.6); Glucose 91 mg/dL (65-115); Osmolality Calculated 288 mOsm/kg (285-295); Potassium 3.5 mmol/L (3.5-5.1); Sodium 138 mmol/L (136-145); Total Bilirubin 0.4 mg/dL (0.15-1.2); Total Protein 6.3 g/dL (6.6-8.7)
--- NOTE | 2022-06-13 19:44 | CTR_ITS ---
PROCEDURE INFORMATION: Exam: CT Abdomen And Pelvis With Contrast Exam date and time: 06/13/2022 8:33 PM Age: 77 years old Clinical indication: Abdominal pain; Generalized; Prior surgery; Surgery date: Post-operative (0-2 days); Surgery type: Uterine mass removal yesterday; Additional info: Lower abd pain p endometrial procedure TECHNIQUE: Imaging protocol: Computed tomography of the abdomen and pelvis with contrast. Radiation optimization: All CT scans at this facility use at least one of these dose optimization techniques: automated exposure control; mA and/or kV adjustment per patient size (includes targeted exams where dose is matched to clinical indication); or iterative reconstruction. Contrast material: OMNI 350; Contrast volume: 100 ml; Contrast route: INTRAVENOUS (IV); REPORTING DATA: Count of CT and Cardiac NM exams in prior 12 months: This patient has received 2 known CTs and 0 known cardiac nuclear medicine studies in the 12 months prior to the current study. COMPARISON: [place] [id number] 08/07/2021 2:13 PM RADIATION DOSE METRICS: Total DLP (mGy-cm): 535.21 FINDINGS: Lungs: 5 mm calcified granuloma right lung base. Mild atelectasis versus fibrosis noted at the lung bases. Liver: The liver is unremarkable in appearance. Gallbladder and bile ducts: No calcified gallstones in the gallbladder. No gallbladder wall thickening. No pericholecystic fluid. No biliary dilatation. No calcified gallstones in the gallbladder. No gallbladder wall thickening. No pericholecystic fluid. No biliary dilatation. Pancreas: The pancreas is normal in appearance. No pancreatic duct dilatation. The pancreas is normal in appearance. No pancreatic duct dilatation. Spleen: Single punctate calcified granuloma in the spleen. No acute splenic abnormality. Adrenal glands: The adrenal glands appear within normal limits. Kidneys and ureters: Simple appearing cysts, measuring up to 10 mm. Cortical atrophy of the upper pole of the left kidney. No solid renal masses. No hydronephrosis. Stomach and bowel: No acute gastric abnormality demonstrated. The small bowel is unremarkable as demonstrated. Diverticulosis of the colon. No evidence of acute diverticulitis. Appendix: No evidence of appendicitis. Intraperitoneal space: Minimal pneumoperitoneum in the upper abdomen, likely representing a postop finding. Mild ascites in the abdomen and pelvis. Vasculature: Atherosclerosis of the abdominal aorta. Aorta measures up to 2.4 cm in diameter. Lymph nodes: No pathologically enlarged lymph nodes. Urinary bladder: Unremarkable as visualized. Reproductive: Residual uterus appears unremarkable. No acute abnormality demonstrated. Bones/joints: Old treated compression fracture at L3. Vertebroplasty and laminectomies are noted at this level. No acute osseous abnormality.The liver is unremarkable in appearance. Soft tissues: Unremarkable. CT/CT abdomen pelvis w con* [id number] IMPRESSION: 1. Minimal pneumoperitoneum in the upper abdomen, likely representing a postop finding. 2. Mild ascites in the abdomen and pelvis. No loculated fluid collection. 3. Diverticulosis of the colon. No evidence of acute diverticulitis. 4. No acute abnormality demonstrated in the abdomen and pelvis.
[2022-06-13] MEDS: iohexol 350 mg/mL 500 mL Btl (per mL) IV (20:13)
[2022-06-13] MEDS: ondansetron 2 mg/ML SDV 2 mL 4 MG IVP (20:16)
[2022-06-13] MEDS: morphine 4 mg/mL SDV 1 mL IVP (20:17)
[2022-06-13 21:02] LABS: Add Urine Microscopic? NO; Charge for UA Resulting for Rev
[2022-06-13 21:10] LABS: Urine Appearance Clear (CLEAR); Urine Color Yellow (Yellow)
[2022-06-13 21:11] LABS: Glucose Urine UA Norm (Normal); Ketones Urine Negative (Negative); Nitrate Urine Negative (Negative); Protein Urine Neg (Negative); pH Urine 6 (5-7)
[2022-06-13 21:12] LABS: Bilirubin Urine Neg (Negative); Blood Urine Neg (Negative); Leukocyte Esterase Urine Negative (Negative); Urobilinogen Urine Norm (Negative)
--- NOTE | 2022-06-13 21:38 | W.ED.ABDPA2 ---
HPI - Abdominal Pain General: Chief Complaint: Abdominal Pain Stated Complaint: Stomach swelling, abd pain Time Seen by Provider: 06/13/22 19:25 Source: patient and family History of Present Illness: 77-year-old female presenting with increasing abdominal pain after hysteroscope yesterday. She says she feels bloated, and is having more lower abdominal pain, and is mildly nauseated. No fever. No vomiting. No diarrhea. She has a scant amount of vaginal bleeding associated with her procedure. She tells me a small polyp was removed from the uterus during the procedure. MD elicited complaint: abdominal pain Pertinent past history: other Onset (ago): hour(s) Pain Consistency: constant Location: Diffuse Severity: moderate Quality: aching and fullness Radiation: none Migration to: no migration Associated Symptoms: Reports bloating and nausea; Denies chills, diarrhea, fever(s), hematochezia, hematuria, loose stools and vomiting Review of Systems Const: Denies: fever(s) or chills Card: Denies: chest pain Resp: Denies: dyspnea GI: Reports: abdominal pain, nausea and bloating; Denies: vomiting, diarrhea or hematochezia : Denies: hematuria Musc: Denies: back pain PFSH ED PFSH: Medical History Anxiety Atherosclerosis Cognitive decline Coronary artery disease Diverticulosis History of myocardial infarction Hyperlipidemia Hypertension Osteoporosis UTI (urinary tract infection) Surgical History History of cataract extraction with lens replacement History of coronary artery bypass graft x 2 History of right mastoidectomy Social History Smoking and tobacco status: former smoker Quit status (tobacco): has quit using tobacco Year quit tobacco: 2013 Alcohol intake: never Substance/Drug Use: never Marital status: Number of children: 3 Number of grandchildren: 6 Kim/Mandaen: Mandaeism Agree to transfusion: Yes Physical Exam Const: GENERAL APPEARANCE: cooperative and ill appearing (mildly) HENMT: COMMON NORMALS: normocephalic, atraumatic and Normal external nose present HEAD & SCALP: normocephalic and atraumatic FACE & SINUS: normal facial exam and face symmetric NOSE: Normal external nose present Eye: COMMON NORMALS: Equal, round and reactive pupils present and EOMs intact bilaterally PUPIL: Yes Equal, round and reactive pupils present Neck/C-Spine: GENERAL: Yes trachea midline Chest: CHEST: Yes Symmetrical chest wall rise Resp: COMMON NORMALS: normal respiratory effort, No retractions, No use of accessory muscles and clear to auscultation bilaterally AUSCULTATION: clear to auscultation bilaterally Cardio: COMMON NORMALS: regular rate and regular rhythm RATE: regular rate RHYTHM: regular rhythm GI: COMMON NORMALS: Normal to inspection, nondistended, normoactive bowel sounds present Extremity: COMMON NORMALS: no pedal edema Neuro: MAYTE COMA SCALE: document GCS findings [place] coma scale eye opening: Spontaneous [place] coma scale verbal response: Orientated Mayte coma scale motor response: Obey commands Mayte coma scale total score: 15 SENSORY EXAM: Yes extremities (intact) Psych: COMMON NORMALS: speech normal SPEECH: Yes normal speech Skin: COMMON NORMALS: no rashes or lesions noted GENERAL SKIN EXAM: no rashes or lesions noted Course Consultations: Consultation #1: Real [id number] Vital Signs: Vital signs: Vital Signs Temperature 97.5 F L 06/13/22 16:57 Pulse Rate 75 06/13/22 16:57 Respiratory Rate 19 H 06/13/22 16:57 Blood Pressure 172/68 06/13/22 16:57 Pulse Oximetry 95 06/13/22 16:57 Oxygen Delivery Me thod Room Air 06/13/22 16:57 MDM - Abdominal Pain Medical Decision Making Vitals are stable. This lady has a normal CBC. Her BMP is not remarkable. Liver enzymes are not remarkable. Urinalysis is negative. CT is performed, and shows some ascites in the belly. It also shows a small amount of pneumoperitoneum, both findings not consistent with normal postoperative hysteroscopy patients. There is no extravasation of contrast. Again, hemoglobin is 13. Spoke with on-call gynecology. Recommendations are IV fluids, n.p.o. after midnight, pain control, and recheck CBC in the morning. She may require repeat imaging as well. Counseled patient and family. Lab Data 06/13/22 18:38 06/13/22 18:38 Labs/Radiology: Radiology Impressions Abdomen/Pelvis CT 06/13/22 19:44 IMPRESSION: 1. Minimal pneumoperitoneum in the upper abdomen, likely representing a postop finding. 2. Mild ascites in the abdomen and pelvis. No loculated fluid collection. 3. Diverticulosis of the colon. No evidence of acute diverticulitis. 4. No acute abnormality demonstrated in the abdomen and pelvis. Laboratory Results WBC 9.6 10^3/uL (4.0-10.0) 06/13/22 18:38 RBC 4.38 10^6/uL (4.1-5.3) 06/13/22 18:38 Hgb 12.9 g/dL (11.5-15.3) 06/13/22 18:38 Hct 40.0 % (37.0-47.0) 06/13/22 18:38 MCV 91.3 fl (81-99) 06/13/22 18: MCH 29.5 pg (28.0-34.0) 06/13/22 18:38 MCHC 32.3 g/dL (30.0-36.0) 06/13/22 18: RDW 13.0 % (12.1-15.1) 06/13/22 18:38 Plt Count 231 10^3/cmm (130-400) 06/13/22 18:38 MPV 8.1 fL (7.4-10.4) 06/13/22 18:38 Neut % (Auto) 73.9 % 06/13/22 18:38 Lymph % (Auto) 18.3 % 06/13/22 18:38 Gordon % (Auto) 6.7 % 06/13/22 18:38 Eos % (Auto) 0.3 % 06/13/22 18:38 Baso % (Auto) 0.2 % 06/13/22 18:38 Neut # (Auto) 7.12 10^3/uL (1.8-7.7) 06/13/22 18:38 Lymph # (Auto) 1.8 10^3/uL (0.8-4.8) 06/13/22 18:38 Gordon # (Auto) 0.7 10^3/uL (0.2-0.9) 06/13/22 18:38 Eos # (Auto) 0.0 10^3/uL (0.0-0.8) 06/13/22 18:38 Baso # (Auto) 0.0 10^3/uL (0.0-0.1) 06/13/22 18:38 Nucleated RBC % (auto) 0 % 06/13/22 18:38 Nucleated RBCs # 0.0 /100WBC 06/13/22 18:38 Sodium 138 mmol/L (136-145) 06/13/22 18:38 Potassium 3.5 mmol/L (3.5-5.1) 06/13/22 18:38 Chloride 105 mmol/L (98-107) 06/13/22 18:38 Carbon Dioxide 22 mmol/L (22-29) 06/13/22 18:38 Anion Gap 14.5 (5-19) 06/13/22 18:38 BUN 20 mg/dL (8-23) 06/13/22 18:38 Creatinine 1.0 mg/dL (0.5-0.9) H 06/13/22 18:38 GFR Calculation Not Reportable 06/13/22 18:38 Glucose 91 mg/dL (65-115) 06/13/22 18:38 Calculated Osmolality 288 mOsm/kg (285-295) 06/13/22 18:38 Calcium 8.4 mg/dL (8.5-10.5) L 06/13/22 18:38 Total Bilirubin 0.4 mg/dL (0.15-1.2) 06/13/22 18:38 AST 16 U/L (0-32) 06/13/22 18:38 ALT 10 U/L (0-33) 06/13/22 18:38 Alkaline Phosphatase 100 U/L (35-105) 06/13/22 18:38 Total Protein 6.3 g/dL (6.6-8.7) L 06/13/22 18:38 Albumin 3.9 g/dL (3.5-5.2) 06/13/22 18:38 Globulin 2.4 g/dL (1.3-4.6) 06/13/22 18:38 Urine Color Yellow (Yellow) 06/13/22 20:49 Urine Appearance Clear (CLEAR) 06/13/22 20:49 Urine pH 6 (5-7) 06/13/22 20:49 Ur Specific [place] 1.010 (1.005-1.030) 06/13/22 20:49 Urine Protein Neg (Negative) 06/13/22 20:49 Urine Glucose (UA) Norm (Normal) 06/13/22 20:49 Urine Ketones Negative (Negative) 06/13/22 20:49 Urine Blood Neg (Negative) 06/13/22 20:49 Urine Nitrate Negative (Negative) 06/13/22 20:49 Urine Bilirubin Neg (Negative) 06/13/22 20:49 Urine Urobilinogen Norm mg/dL (Negative) 06/13/22 20:49 Ur Leukocyte Esterase Negative (Negative) 06/13/22 20:49 Discharge Plan Discharge Patient Disposition: Placed in Observation Admit Provider: Anirudh Noble Clinical Impression: Abdominal pain, Abdominal ascites, Surgical pneumoperitoneum Coding Level of Care Code ED Health And Social Care Teacher for Florence Christy
[2022-06-13] MEDS: dorzolamide/timolol Op Soln 10 mL Btl 1 DROP EYE-BOTH (23:01)
[2022-06-14] VITALS (9 sets, daily range): BP systolic 152–178; BP diastolic 64–81; PULSE 59–76; RESP 15–18; TEMP 36.4–36.7; O2SAT 90–96
[2022-06-14] MEDS: hyDRALAzine 25 mg Tablet PO ×4 (00:16→20:50)
[2022-06-14] MEDS: lactated ringers 1,000 ML 100 ML IV ×3 (00:42→22:17)
[2022-06-14] MEDS: morphine 4 mg/mL SDV 1 mL 2 MG IVP (01:58)
[2022-06-14] MEDS: oxyCODONE-APAP 5-325 mg Tablet 1 TAB PO (03:40)
--- NOTE | 2022-06-14 07:56 | ECG_ITS ---
[facility] Test Date: 2022-06-14 Pat Name: Mellissa Hurt Department: Room: 262 Gender: Female Rn Oncology Research: : 1945 Requested By: Anirudh Hong Order Number: [id number] Marge MD: Justin Padilla M.D. Measurements Intervals [place] Rate: 65 P: 42 [place]: 163 QRS: 5 QRSD: 89 T: 66 QT: 402 QTc: 420 Interpretive Statements SINUS RHYTHM NONSPECIFIC ST & T-WAVE ABNORMALITY Compared to ECG 03/24/2022 14:05:08 Sinus tachycardia no longer present T-wave abnormality still present Electronically Signed On 06-14-2022 9:57:53 CDT by Justin Padilla M.D. [email or web address]
[2022-06-14] MEDS: donepezil 5 MG Tablet 10 MG PO (10:05)
[2022-06-14] MEDS: amlodipine 5 mg Tablet 10 MG PO (10:06)
[2022-06-14] MEDS: duloxetine 30 mg Capsule PO (10:06)
[2022-06-14] MEDS: cholecalciferol (vitamin D3) 1,000 unit Tablet 1000 UNIT PO (10:06)
[2022-06-14] MEDS: atorvastatin 40 mg Tablet 80 MG PO (10:07)
[2022-06-14] MEDS: docusate sodium 100 mg Capsule PO ×2 (10:11→18:15)
[2022-06-14 10:23] LABS: Basophils % 0.4 %; Eosinophils # 0.1 10^3/uL (0.0-0.8); Eosinophils % 1.8 %; Hematocrit 41.3 % (37.0-47.0); Hemoglobin 13.2 g/dL (11.5-15.3); Lymphocytes # 1.8 10^3/uL (0.8-4.8); Lymphocytes % 24.9 %; Mean Corpuscular Hemoglobin 29.1 pg (28.0-34.0); Mean Platelet Volume 8.3 fL (7.4-10.4); Monocytes # 0.4 10^3/uL (0.2-0.9); Neutrophils # 4.72 10^3/uL (1.8-7.7); Neutrophils % 66.5 %; Nucleated Red Blood Cells % 0 %; Platelet Count 210 10^3/cmm (130-400); Red Blood Count 4.54 10^6/uL (4.1-5.3); Red Cell Distribution Width 13.1 % (12.1-15.1); White Blood Count 7.1 10^3/uL (4.0-10.0)
[2022-06-14 10:46] LABS: Alanine Aminotransferase 11 U/L (0-33); Albumin Level 3.6 g/dL (3.5-5.2); Alkaline Phosphatase 97 U/L (35-105); Blood Urea Nitrogen 13 mg/dL (8-23); Calcium 8.6 mg/dL (8.5-10.5); Carbon Dioxide 23 mmol/L (22-29); Chloride 103 mmol/L (98-107); Globulin 2.7 g/dL (1.3-4.6); Glucose 62 mg/dL (65-115); Osmolality Calculated 282 mOsm/kg (285-295); Sodium 137 mmol/L (136-145); Total Bilirubin 0.5 mg/dL (0.15-1.2); Total Protein 6.3 g/dL (6.6-8.7)
[2022-06-14] MEDS: metoclopramide 5 mg/mL SDV 2 mL 10 MG IVP (11:31)
[2022-06-14 11:39] LABS: Anion Gap 14.5 (5-19)
[2022-06-14 11:40] LABS: Aspartate Amino Transferase 21 U/L (0-32); Potassium 3.5 mmol/L (3.5-5.1)
--- NOTE | 2022-06-14 13:45 | P.PN_ITS ---
Subjective Subjective: Mrs. Hurt 77-year-old female is status post hysteroscopy and dilatation and curettage and polypectomy 2 days ago. Vitals/I&O/Wt Last Vital Signs Temp 97.9 F 06/14/22 08:00 Pulse 66 06/14/22 08:00 Resp 17 06/14/22 08:00 BP 176/78 06/14/22 08:00 Pulse Ox 91 06/14/22 08:00 O2 Del Method Room Air 06/14/22 03:10 06/13/22 06/14/22 06/14/22 22:59 06:59 14:59 Intake Total 1000 / 1000 Output Total 1000 / 1000 1100 / 1100 Balance -1000 / -1000 -100 / -100 Weight last 48 hrs Weight 72.575 kg Physical Exam Narrative: GA: Alert and oriented ?3. HEENT: WNL. Heart: Regular rate and rhythm. Lungs: Clear to auscultation bilaterally. Abdomen: Bowel sounds present, minimal tenderness, soft. 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 Extremities: No edema, no cyanosis, no calves pain. Data 06/14/22 09:35 06/14/22 09:35 A&P Assessment and plan (1) Abdominal pain: Mrs. Hurt 77-year-old female is status post hysteroscopy and hysteroscopic polypectomy 2 days ago. Came to the emergency room complaining of bloating and abdominal pain. On examination moderate fluid was noted. She is afebrile and hemodynamically stable. Admitted for pain management and monitoring electrolytes. (2) Abdominal ascites: (3) Status post hysteroscopic polypectomy: Plan Continue observation. Ambulation. Attestations Medical Necessity Statement*: In my professional opinion per admitting diagnosis. Coding Level of Care Code Acute Code for [facility] Fwd Diagnoses Abdominal pain R10.9 Abdominal ascites R18.8 Status post hysteroscopic polypectomy Z98.890
--- NOTE | 2022-06-14 16:17 | PC.NURSE ---
Dr. Noble notified this am patient complaining of chest pain with radiation up the left side neck. An EKG was ordered with results of normal sinus rhythm. Dr. Noble ordered home medications to start, give patient regular diet, give Reglan 10 mg one time IVP, start Tramadol [address] Noble wanted Melatonin 10 mg at bed time. Pharmacy does not carry Melatonin.
[2022-06-14] MEDS: ropinirole 0.25 mg Tablet 0.5 MG PO (20:50)
[2022-06-15 01:30] VITALS: TEMP 37
[2022-06-15 04:00] VITALS: BP 179/73; PULSE 69; RESP 16; TEMP 36.8; O2SAT 92
[2022-06-15 05:01] LABS: Hematocrit 39.6 % (37.0-47.0); Hemoglobin 13.1 g/dL (11.5-15.3); Mean Corpuscular HGB Conc 33.1 g/dL (30.0-36.0); Mean Corpuscular Hemoglobin 29.4 pg (28.0-34.0); Mean Platelet Volume 8.1 fL (7.4-10.4); Platelet Count 203 10^3/cmm (130-400); Red Blood Count 4.45 10^6/uL (4.1-5.3); Red Cell Distribution Width 12.8 % (12.1-15.1); White Blood Count 6.4 10^3/uL (4.0-10.0)
[2022-06-15 05:11] LABS: Alanine Aminotransferase 9 U/L (0-33); Albumin Level 3.4 g/dL (3.5-5.2); Alkaline Phosphatase 90 U/L (35-105); Anion Gap 11.4 (5-19); Aspartate Amino Transferase 16 U/L (0-32); Blood Urea Nitrogen 12 mg/dL (8-23); Calcium 8.7 mg/dL (8.5-10.5); Carbon Dioxide 27 mmol/L (22-29); Chloride 103 mmol/L (98-107); Globulin 2.4 g/dL (1.3-4.6); Glucose 86 mg/dL (65-115); Osmolality Calculated 285 mOsm/kg (285-295); Potassium 3.4 mmol/L (3.5-5.1); Sodium 138 mmol/L (136-145); Total Bilirubin 0.4 mg/dL (0.15-1.2); Total Protein 5.8 g/dL (6.6-8.7)
[2022-06-15 06:13] VITALS: BP 179/73
[2022-06-15] MEDS: aspirin 81 mg EC Tablet PO (06:13)
[2022-06-15] MEDS: losartan 50 mg Tablet 100 MG PO (06:13)
[2022-06-15] MEDS: clopidogrel 75 mg Tablet PO (06:13)
[2022-06-15 06:16] LABS: Absolute Neutrophil 4.5 10^3/cmm (1.4-6.5); Absolute Segmented Neutrophil 4.5 10/cmm (1.6-7.1); Eosinophils 1 %; Lymphocytes 21 %; Lymphocytes Absolute 1.3 10^3/cmm (1.2-3.4); Monocytes Absolute 0.5 10^3/cmm (0.1-0.6); Platelet Estimate Normal (Normal); Segmented Neutrophils 70 %; Total Cells Counted 100 (0-100)
[2022-06-15 07:37] VITALS: BP 192/70; PULSE 78; RESP 19; TEMP 36.5; O2SAT 91
[2022-06-15] MEDS: amlodipine 5 mg Tablet 10 MG PO (08:52)
[2022-06-15] MEDS: donepezil 5 MG Tablet 10 MG PO (08:53)
[2022-06-15] MEDS: atorvastatin 40 mg Tablet 80 MG PO (08:53)
[2022-06-15] MEDS: duloxetine 30 mg Capsule PO (08:53)
[2022-06-15] MEDS: hyDRALAzine 25 mg Tablet PO (08:53)
[2022-06-15] MEDS: cholecalciferol (vitamin D3) 1,000 unit Tablet 1000 UNIT PO (08:53)
[2022-06-15] MEDS: lactated ringers 1,000 ML 100 ML IV (08:54)
[2022-06-15] MEDS: TRAMadol 50 mg Tablet PO (08:57)
[2022-06-15] MEDS: docusate sodium 100 mg Capsule PO (08:58)
--- NOTE | 2022-06-15 09:43 | P.HP_ITS ---
Providers/Chief Complaint Admitting Physician: Anirudh Noble MD Primary REMOTE SENSING ANALYST: Malcolm Ken MD Primary Care Provider: Olga Mazariegos MD Chief Complaint: Stomach swelling, abd pain HPI REMOTE SENSING ANALYST History of Present Illness Mellissa Hurt is a 77 year old female. Hysteroscopic polypectomy came to the emergency room. The day 1 complaining of bloating and abdominal pain. Review of Systems Const: Denies: fever(s) or chills Card: Denies: chest pain Resp: Denies: dyspnea GI: Reports: abdominal pain, nausea and bloating; Denies: vomiting, diarrhea or hematochezia : Denies: hematuria Musc: Denies: back pain Medications/Allergies Home Medications Medication Instructions Recorded Confirmed Last Taken Type aspirin 81 mg tablet,delayed 81 mg PO QAM 08/07/21 06/14/22 06/06/22 History release clopidogrel 75 mg tablet 75 mg PO QAM 08/07/21 06/14/22 06/06/22 History losartan 100 mg tablet 100 mg PO QAM 08/07/21 06/14/22 06/11/22 History atorvastatin 80 mg tablet 80 mg PO DAILY 02/26/22 06/14/22 06/10/22 History brimonidine 0.2 %-timolol 0.5 % 1 drp ophthalmic (eye) BID 02/26/22 06/14/22 06/12/22 History eye drops (Combigan) cetirizine 10 mg tablet 10 mg PO DAILY PRN Allergy Symptoms 02/26/22 06/14/22 06/11/22 History donepezil 10 mg tablet 10 mg PO DAILY 02/26/22 06/14/22 06/12/22 History cholecalciferol (vitamin D3) 25 25 mcg PO DAILY 90 days #90 caps 04/07/2208/0106/12/22 Rx mcg (1,000 unit) capsule (Vitamin D3) amlodipine 5 mg tablet 10 mg PO DAILY #180 tabs 04/30/22 06/14/22 06/12/22 Rx hydralazine 25 mg tablet 25 mg PO TID #270 tabs 05/14/22 06/14/22 06/12/22 Rx docusate sodium 100 mg capsule See Rx Instructions .Route 05/28/22 06/14/22 Unknown Rx .COMPLEX #180 caps tramadol 50 mg tablet 50 mg PO BID PRN pain #30 tabs 05/28/22 06/14/22 06/11/22 Rx ropinirole 0.5 mg tablet 0.5 mg PO .at bedtime #30 tabs 06/03/22 06/14/22 06/10/22 Rx duloxetine 30 mg capsule,delayed 30 mg PO DAILY #90 caps 06/13/22 06/14/22 Unknown Rx release oxybutynin chloride 5 mg 5 mg PO DAILY 06/14/22 06/14/22 Unknown History tablet,extended release 24 hr Allergies Allergy/AdvReac Type Severity Reaction Status Date / Time lisinopril Allergy cough Verified 06/11/22 12:13 Sulfa (Sulfonamide Allergy severe Verified 06/11/22 12:13 Antibiotics) reaction landing her in hospital beta blockers Allergy makes her Uncoded 06/11/22 12:13 cough PFSH REMOTE SENSING ANALYST PFSH: Medical History Anxiety Atherosclerosis Cognitive decline Coronary artery disease Diverticulosis History of myocardial infarction Hyperlipidemia Hypertension Osteoporosis UTI (urinary tract infection) Surgical History History of cataract extraction with lens replacement History of coronary artery bypass graft x 2 History of right mastoidectomy Social History Smoking and tobacco status: former smoker Quit status (tobacco): has quit using tobacco Year quit tobacco: 2012 Alcohol intake: never Substance/Drug Use: never Marital status: Number of children: 3 Number of grandchildren: 6 Kim/Jainism: Samaritan Agree to transfusion: Yes Other Female Reproductive History: Date of menopause: 02/09/1966 History History History 4 Term 3 0 Miscarriages/Ectopic 1 Living Children 3 Vitals/I&O/Wt Last Vital Signs Temp 97.7 F 06/15/22 07:37 Pulse 78 06/15/22 07:37 Resp 19 H 06/15/22 07:37 BP 192/70 06/15/22 07:37 Pulse Ox 91 06/15/22 07:37 O2 Del Method Room Air 06/15/22 04:00 05/06/23 05/07/23 05/07/23 22:59 06:59 14:59 Intake Total 1175 / 2175 1120 / 1120 Balance 1175 / 1075 1120 / 1120 Weight last 48 hrs Weight 72.575 kg Physical Exam Narrative: GA: Alert and oriented ?3. HEENT: WNL. Heart: Regular rate and rhythm. Lungs: Clear to auscultation bilaterally. Abdomen: Bowel sounds present, minimal tenderness. Soft, no guarding BLACKING WHEEL TENDER: No bleeding. Extremities: No edema, no cyanosis, no calves pain. Data 06/15/22 04:20 06/15/22 04:20 Results Radiology [id number] [place], [place] [address]CK Scan ReportSigned Patient: Mellissa Hurt #: [id number]: 1945cct#:[id number]/Sex: 77 / FADM Date: 06/13/22Loc: ERRoom/Bed:Attending Dr: Ordering Provider/Ordering MD: Jeevan Segura DO Date of Service: 06/13/22 Procedure(s): CT abdomen pelvis w con* [id number] Accession Number(s): [id number] Report Number: [id number] PROCEDURE INFORMATION: Exam: CT Abdomen And Pelvis With Contrast Exam date and time: 06/13/2022 8:33 PM Age: 77 years old Clinical indication: Abdominal pain; Generalized; Prior surgery; Surgery date: Post-operative (0-2 days); Surgery type: Uterine mass removal yesterday; Additional info: Lower abd pain p endometrial procedure TECHNIQUE: Imaging protocol: Computed tomography of the abdomen and pelvis with contrast. Radiation optimization: All CT scans at this facility use at least one of these dose optimization techniques: automated exposure control; mA and/or kV adjustment per patient size (includes targeted exams where dose is matched to clinical indication); or iterative reconstruction. Contrast material: OMNI 350; Contrast volume: 100 ml; Contrast route: INTRAVENOUS (IV); REPORTING DATA: Count of CT and Cardiac NM exams in prior 12 months: This patient has received 2 known CTs and 0 known cardiac nuclear medicine studies in the 12 months prior to the current study. COMPARISON: [place] [id number] 08/07/2021 2:13 PM RADIATION DOSE METRICS: Total DLP (mGy-cm): 535.21 FINDINGS: Lungs: 5 mm calcified granuloma right lung base. Mild atelectasis versus fibrosis noted at the lung bases. Liver: The liver is unremarkable in appearance. Gallbladder and bile ducts: No calcified gallstones in the gallbladder. No gallbladder wall thickening. No pericholecystic fluid. No biliary dilatation. No calcified gallstones in the gallbladder. No gallbladder wall thickening. No pericholecystic fluid. No biliary dilatation. Pancreas: The pancreas is normal in appearance. No pancreatic duct dilatation. The pancreas is normal in appearance. No pancreatic duct dilatation. Spleen: Single punctate calcified granuloma in the spleen. No acute splenic abnormality. Adrenal glands: The adrenal glands appear within normal limits. Kidneys and ureters: Simple appearing cysts, measuring up to 10 mm. Cortical atrophy of the upper pole of the left kidney. No solid renal masses. No hydronephrosis. Stomach and bowel: No acute gastric abnormality demonstrated. The small bowel is unremarkable as demonstrated. Diverticulosis of the colon. No evidence of acute diverticulitis. Appendix: No evidence of appendicitis. Intraperitoneal space: Minimal pneumoperitoneum in the upper abdomen, likely representing a postop finding. Mild ascites in the abdomen and pelvis. Vasculature: Atherosclerosis of the abdominal aorta. Aorta measures up to 2.4 cm in diameter. Lymph nodes: No pathologically enlarged lymph nodes. Urinary bladder: Unremarkable as visualized. Reproductive: Residual uterus appears unremarkable. No acute abnormality demonstrated. Bones/joints: Old treated compression fracture at L3. Vertebroplasty and laminectomies are noted at this level. No acute osseous abnormality.The liver is unremarkable in appearance. Soft tissues: Unremarkable. CT/CT abdomen pelvis w con* [id number] IMPRESSION: 1. Minimal pneumoperitoneum in the upper abdomen, likely representing a postop finding. 2. Mild ascites in the abdomen and pelvis. No loculated fluid collection. 3. Diverticulosis of the colon. No evidence of acute diverticulitis. 4. No acute abnormality demonstrated in the abdomen and pelvis. Dictated By:Lobo Lopes MD A&P Assessment and plan (1) Abdominal pain: Mrs. Hurt 77-year-old female is status post hysteroscopy and hysteroscopic polypectomy 1 days ago. Came to the emergency room complaining of bloating and abdominal pain. On examination moderate fluid was noted. She is afebrile and hemodynamically stable. Admitted for pain management and monitoring electrolytes. (2) Abdominal ascites: (3) Status post hysteroscopic polypectomy: Plan Continue observation. Ambulation. Attestations Medical Necessity Statement*: My professional opinion poor admitting diagnosis. Coding Level of Care Code Acute Code for [facility] Fwd Diagnoses Abdominal pain R10.9 Abdominal ascites R18.8 Status post hysteroscopic polypectomy Z98.890
--- NOTE | 2022-06-15 09:50 | P.DS_ITS ---
Discharge Providers TRANSPORTATION SUPERINTENDENT Date of Admission: 06/14/22 22:33 Date of Discharge: 06/15/22 Attending Provider at Admission: Anirudh Noble MD Attending Provider at Discharge: Anirudh Noble MD Primary TRANSPORTATION SUPERINTENDENT: Malcolm Hong MD Primary Care Provider: Olga Mazariegos MD Diagnoses at Discharge Discharge Diagnosis (1) Abdominal pain: Status: Acute (2) Abdominal ascites: Status: Acute (3) Status post hysteroscopic polypectomy: Status: Acute Reason for Visit Reason for Visit: Stomach swelling, abd pain Hospital Course Hospital Course Blu 77-year-old female is status post hysteroscopic polypectomy came to the emergency room complaining of abdominal pain nausea vomiting on postoperative day 1. CT scan performed in the emergency room showed mild ascites, no evidence of acute changes in pelvis,or abdomen. Patient was admitted for pain management and electrolyte monitoring. Has been afebrile hemodynamically stable throughout her stay. Her comprehensive metabolic panel within normal limits. Pain has been under control patient has not been requesting pain medication. Patient was counseled regarding pelvic rest for 6 weeks (no sex, no tampons, no vaginal douches). Return to the emergency room if any fever, increased bleeding or pain. Physical Exam Narrative: GA: Alert and oriented ?3. HEENT: WNL. Heart: Regular rate and rhythm. Lungs: Clear to auscultation bilaterally. Abdomen: Bowel sounds present, minimal tenderness. Soft, no guarding STOCK SPECULATOR: No bleeding. Extremities: No edema, no cyanosis, no calves pain. History History History 4 Term 3 0 Miscarriages/Ectopic 1 Living Children 3 Discharge Data Studies Completed and Pending Completed Studies During Hospitalization Category Date Time Status CT abdomen pelvis w con* [id number] Urgent Cat Scan 06/13/22 19:44 Completed Radiology Impressions Abdomen/Pelvis CT 06/13/22 19:44 IMPRESSION: 1. Minimal pneumoperitoneum in the upper abdomen, likely representing a postop finding. 2. Mild ascites in the abdomen and pelvis. No loculated fluid collection. 3. Diverticulosis of the colon. No evidence of acute diverticulitis. 4. No acute abnormality demonstrated in the abdomen and pelvis. Laboratory Results WBC 6.4 10^3/uL (4.0-10.0) 06/15/22 04:20 RBC 4.45 10^6/uL (4.1-5.3) 06/15/22 04:20 Hgb 13.1 g/dL (11.5-15.3) 06/15/22 04:20 Hct 39.6 % (37.0-47.0) 06/15/22 04:20 MCV 89.0 fl (81-99) 06/15/22 04:20 MCH 29.4 pg (28.0-34.0) 06/15/22 04:20 MCHC 33.1 g/dL (30.0-36.0) 06/15/22 04:20 RDW 12.8 % (12.1-15.1) 06/15/22 04:20 Plt Count 203 10^3/cmm (130-400) 06/15/22 04:20 MPV 8.1 fL (7.4-10.4) 06/15/22 04:20 Neut % (Auto) 66.5 % 06/14/22 09:35 Lymph % (Auto) 24.9 % 06/14/22 09:35 [place] % (Auto) 6.0 % 06/14/22 09:35 Eos % (Auto) 1.8 % 06/14/22 09:35 Baso % (Auto) 0.4 % 06/14/22 09:35 Neut # (Auto) 4.72 10^3/uL (1.8-7.7) 06/14/22 09:35 Lymph # (Auto) 1.8 10^3/uL (0.8-4.8) 06/14/22 09:35 [place] # (Auto) 0.4 10^3/uL (0.2-0.9) 06/14/22 09:35 Eos # (Auto) 0.1 10^3/uL (0.0-0.8) 06/14/22 09:35 Baso # (Auto) 0.0 10^3/uL (0.0-0.1) 06/14/22 09:35 Nucleated RBC % (auto) 0 % 06/14/22 09:35 Total Counted 100 (0-100) 06/15/22 04:20 Atypical Lymphs % 0.0 % (0-5) 06/15/22 04:20 Absolute Neutrophils 4.5 10^3/cmm (1.4-6.5) 06/15/22 04:20 Segmented Neutrophils 70 % 06/15/22 04:20 Abs Segm Neuts (Man) 4.5 10/cmm (1.6-7.1) 06/15/22 04:20 Band Neutrophils 0.0 % 06/15/22 04:20 Abs Band Neuts (Man) 0.0 10^3/cmm (0.0-1.2) 06/15/22 04:20 Absolute Lymphocytes 1.3 10^3/cmm (1.2-3.4) 06/15/22 04:20 Lymphocytes (Manual) 21 % 06/15/22 04:20 Monocytes (Manual) 8.0 % 06/15/22 04:20 Absolute Monocytes 0.5 10^3/cmm (0.1-0.6) 06/15/22 04:20 Eosinophils (Manual) 1 % 06/15/22 04:20 Absolute Eosinophils 0.0 10^3/cmm (0.0-0.7) 06/15/22 04:20 Basophils (Manual) 0.0 % 06/15/22 04:20 Absolute Basophils 0.0 10^3/cmm (0.0-0.2) 06/15/22 04:20 Nucleated RBCs # 0.0 /100WBC 06/14/22 09:35 Platelet Estimate Normal (Normal) 06/15/22 04:20 Sodium 138 mmol/L (136-145) 06/15/22 04:20 Potassium 3.4 mmol/L (3.5-5.1) L 06/15/22 04:20 Chloride 103 mmol/L (98-107) 06/15/22 04:20 Carbon Dioxide 27 mmol/L (22-29) 06/15/22 04:20 Anion Gap 11.4 (5-19) 06/15/22 04:20 BUN 12 mg/dL (8-23) 06/15/22 04:20 Creatinine 0.8 mg/dL (0.5-0.9) 06/15/22 04:20 GFR Calculation Not Reportable 06/15/22 04:20 Glucose 86 mg/dL (65-115) 06/15/22 04:20 Calculated Osmolality 285 mOsm/kg (285-295) 06/15/22 04:20 Calcium 8.7 mg/dL (8.5-10.5) 06/15/22 04:20 Total Bilirubin 0.4 mg/dL (0.15-1.2) 06/15/22 04:20 AST 16 U/L (0-32) 06/15/22 04:20 ALT 9 U/L (0-33) 06/15/22 04:20 Alkaline Phosphatase 90 U/L (35-105) 06/15/22 04:20 Total Protein 5.8 g/dL (6.6-8.7) L 06/15/22 04:20 Albumin 3.4 g/dL (3.5-5.2) L 06/15/22 04:20 Globulin 2.4 g/dL (1.3-4.6) 06/15/22 04:20 Urine Color Yellow (Yellow) 06/13/22 20:49 Urine Appearance Clear (CLEAR) 06/13/22 20:49 Urine pH 6 (5-7) 06/13/22 20:49 Ur Specific [place] 1.010 (1.005-1.030) 06/13/22 20:49 Urine Protein Neg (Negative) 06/13/22 20:49 Urine Glucose (UA) Norm (Normal) 06/13/22 20:49 Urine Ketones Negative (Negative) 06/13/22 20:49 Urine Blood Neg (Negative) 06/13/22 20:49 Urine Nitrate Negative (Negative) 06/13/22 20:49 Urine Bilirubin Neg (Negative) 06/13/22 20:49 Urine Urobilinogen Norm mg/dL (Negative) 06/13/22 20:49 Ur Leukocyte Esterase Negative (Negative) 06/13/22 20:49 Vitals Last Vital Signs Temp 97.7 F 06/15/22 07:37 Pulse 78 06/15/22 07:37 Resp 19 H 06/15/22 07:37 BP 192/70 06/15/22 07:37 Pulse Ox 91 06/15/22 07:37 O2 Del Method Room Air 06/15/22 04:00 Results Radiology [address] [id number] Scan ReportSigned Patient: Mellissa Hurt #: [id number]: 3Acct#:[id number]/Sex: 77 / FADM Date: 06/13/22Loc: ERRoom/Bed:Attending Dr: Ordering Provider/Ordering MD: Jeevan Segura DO Date of Service: 06/13/22 Procedure(s): CT abdomen pelvis w con* [id number] Accession Number(s): [id number] Report Number: [id number] PROCEDURE INFORMATION: Exam: CT Abdomen And Pelvis With Contrast Exam date and time: 06/13/2022 8:33 PM Age: 77 years old Clinical indication: Abdominal pain; Generalized; Prior surgery; Surgery date: Post-operative (0-2 days); Surgery type: Uterine mass removal yesterday; Additional info: Lower abd pain p endometrial procedure TECHNIQUE: Imaging protocol: Computed tomography of the abdomen and pelvis with contrast. Radiation optimization: All CT scans at this facility use at least one of these dose optimization techniques: automated exposure control; mA and/or kV adjustment per patient size (includes targeted exams where dose is matched to clinical indication); or iterative reconstruction. Contrast material: OMNI 350; Contrast volume: 100 ml; Contrast route: INTRAVENOUS (IV); REPORTING DATA: Count of CT and Cardiac NM exams in prior 12 months: This patient has received 2 known CTs and 0 known cardiac nuclear medicine studies in the 12 months prior to the current study. COMPARISON: [place] [id number] 08/07/2021 2:13 PM RADIATION DOSE METRICS: Total DLP (mGy-cm): 535.21 FINDINGS: Lungs: 5 mm calcified granuloma right lung base. Mild atelectasis versus fibrosis noted at the lung bases. Liver: The liver is unremarkable in appearance. Gallbladder and bile ducts: No calcified gallstones in the gallbladder. No gallbladder wall thickening. No pericholecystic fluid. No biliary dilatation. No calcified gallstones in the gallbladder. No gallbladder wall thickening. No pericholecystic fluid. No biliary dilatation. Pancreas: The pancreas is normal in appearance. No pancreatic duct dilatation. The pancreas is normal in appearance. No pancreatic duct dilatation. Spleen: Single punctate calcified granuloma in the spleen. No acute splenic abnormality. Adrenal glands: The adrenal glands appear within normal limits. Kidneys and ureters: Simple appearing cysts, measuring up to 10 mm. Cortical atrophy of the upper pole of the left kidney. No solid renal masses. No hydronephrosis. Stomach and bowel: No acute gastric abnormality demonstrated. The small bowel is unremarkable as demonstrated. Diverticulosis of the colon. No evidence of acute diverticulitis. Appendix: No evidence of appendicitis. Intraperitoneal space: Minimal pneumoperitoneum in the upper abdomen, likely representing a postop finding. Mild ascites in the abdomen and pelvis. Vasculature: Atherosclerosis of the abdominal aorta. Aorta measures up to 2.4 cm in diameter. Lymph nodes: No pathologically enlarged lymph nodes. Urinary bladder: Unremarkable as visualized. Reproductive: Residual uterus appears unremarkable. No acute abnormality demonstrated. Bones/joints: Old treated compression fracture at L3. Vertebroplasty and laminectomies are noted at this level. No acute osseous abnormality.The liver is unremarkable in appearance. Soft tissues: Unremarkable. CT/CT abdomen pelvis w con* [id number] IMPRESSION: 1. Minimal pneumoperitoneum in the upper abdomen, likely representing a postop finding. 2. Mild ascites in the abdomen and pelvis. No loculated fluid collection. 3. Diverticulosis of the colon. No evidence of acute diverticulitis. 4. No acute abnormality demonstrated in the abdomen and pelvis. Dictated By:Lobo Lopes MD Discharge Plan Discharge Patient Disposition: Home Condition: Stable Prescriptions: Continued tramadol 50 mg tablet 50 mg PO BID PRN (Reason: pain) Qty: 30 0RF atorvastatin 80 mg tablet 80 mg PO DAILY cetirizine 10 mg tablet 10 mg PO DAILY PRN (Reason: Allergy Symptoms) donepezil 10 mg tablet 10 mg PO DAILY brimonidine-timolol [Combigan] 0.2-0.5 % drops 1 drp ophthalmic (eye) BID Rx Instructions: both eyes cholecalciferol (vitamin D3) [Vitamin D3] 25 mcg (1,000 unit) capsule 25 mcg PO DAILY 90 Days Qty: 90 1RF amlodipine 5 mg tablet 10 mg PO DAILY Qty: 180 3RF hydralazine 25 mg tablet 25 mg PO TID Qty: 270 3RF docusate sodium 100 mg capsule See Rx Instructions .ROUTE .COMPLEX Qty: 180 11RF Dose Instruction: TAKE ONE CAPSULE BY MOUTH TWICE DAILY @9AM & 5PM Rx Instructions: TAKE ONE CAPSULE BY MOUTH TWICE DAILY @9AM & 5PM ropinirole 0.5 mg tablet 0.5 mg PO .at bedtime Qty: 30 0RF Rx Instructions: take 1 hour before bed duloxetine 30 mg capsule,delayed release(DR/EC) 30 mg PO DAILY Qty: 90 2RF clopidogrel 75 mg tablet 75 mg PO QAM aspirin 81 mg Tablet,Delayed Release (Dr/Ec) 81 mg PO QAM losartan 100 mg tablet 100 mg PO QAM oxybutynin chloride 5 mg tablet extended release 24hr 5 mg PO DAILY Discharge Orders: Discharge Order (Routine); Ordered 06/15/22 Ordered By: Anirudh Noble Referrals: Olga Mazariegos MD [Primary Care Provider] - Patient Instructions: Opioid Safety Discharge Attestations TRANSPORTATION SUPERINTENDENT Time Spent in Discharge Care*: greater than 30 min Coding Level of Care Code Acute Code for Chg Fwd Diagnoses Abdominal pain R10.9 Abdominal ascites R18.8 Status post hysteroscopic polypectomy Z98.890
[2022-06-15 11:08] VITALS: BP 192/70; PULSE 78; RESP 19; TEMP 36.5; O2SAT 91
== END 2022-06-15 11:10 | disposition home or self-care (01) | DRG 948 ==
LOC: ER 22:00 → MEDSURG 23:42
PROVIDERS: Physician Assistant; Admitting Provider Obstetrics & Gynecology; Emergency Provider Emergency Medicine; PCP Family Medicine; Visit Provider Obstetrics & Gynecology
DX: G89.18 Other acute postprocedural pain (principal); R18.8 Other ascites; Z79.891 Long term (current) use of opiate analgesic; Z79.02 Long term (current) use of antithrombotics/antiplatelets; Z79.82 Long term (current) use of aspirin; F41.9 Anxiety disorder, unspecified; I25.10 Atherosclerotic heart disease of native coronary artery without angina pectoris; I25.2 Old myocardial infarction; E78.5 Hyperlipidemia, unspecified; I10 Essential (primary) hypertension; M81.0 Age-related osteoporosis without current pathological fracture; Z87.440 Personal history of urinary (tract) infections; Z87.891 Personal history of nicotine dependence
CPT/HCPCS: 36415; 74177; 80053; 81003; 85007; 85025; 85027; 88305; 88342; 93005; 96374; 96375; 99285; G0378; J1100; J2270; J2405; J2704; J2765; J3010; J7030; J7120; Q9967

== ENCOUNTER → 2022-06-17 15:11 | Outpatient (BNVA) | payer MEDICARE, OTHER, SELFPAY | PROVIDERS: PCP Family Medicine; Visit Provider Family Medicine | DX: Z48.89 Encounter for other specified surgical aftercare (principal); N81.9 Female genital prolapse, unspecified; R10.2 Pelvic and perineal pain; R82.90 Unspecified abnormal findings in urine; Z98.890 Other specified postprocedural states | CPT/HCPCS: 81000; 87086 ==

== ENCOUNTER → 2022-06-19 10:48 | Outpatient (BNVA) | payer MEDICARE, OTHER, SELFPAY | PROVIDERS: PCP Family Medicine; Visit Provider Orthopaedic Surgery | DX: Z47.89 Encounter for other orthopedic aftercare (principal) | CPT/HCPCS: 99024 ==

== ENCOUNTER → 2022-08-27 08:16 | Outpatient (BNVA) | payer MEDICARE, OTHER, SELFPAY | PROVIDERS: PCP Family Medicine; Visit Provider Family Medicine | DX: R39.9 Unspecified symptoms and signs involving the genitourinary system (principal) | CPT/HCPCS: 81000 ==

== ENCOUNTER 2022-10-24 12:47 | Observation (INO) | payer MEDICARE, OTHER, SELFPAY ==
[2022-10-24] VITALS (9 sets, daily range): BP systolic 161–203; BP diastolic 72–86; PULSE 43–58; RESP 16–21; TEMP 36.7–36.8; O2SAT 94–99; BMI 25.0
[2022-10-24 13:14] LABS: Basophils % 0.6 %; Eosinophils # 0.1 10^3/uL (0.0-0.8); Eosinophils % 2.6 %; Hematocrit 41.7 % (36-47); Lymphocytes # 1.2 10^3/uL (0.8-4.8); Lymphocytes % 23.7 %; Mean Corpuscular HGB Conc 31.9 g/dL (30-55); Mean Corpuscular Hemoglobin 29.6 pg (27-33); Mean Corpuscular Volume 92.7 fl (85-98); Monocytes # 0.5 10^3/uL (0.2-0.9); Monocytes % 9.3 %; Neutrophils % 63.6 %; Nucleated Red Blood Cells % 0 %; Platelet Count 165 10^3/cmm (157-399); Red Cell Distribution Width 13.2 % (12.1-15.1); White Blood Count 5.03 10^3/uL (3.29-11.43)
--- NOTE | 2022-10-24 13:19 | ECG_ITS ---
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 Measurements Intervals [place] Rate: 51 P: 60 CO: 165 QRS: 29 QRSD: 82 T: 60 QT: 459 QTc: 426 Interpretive Statements SINUS BRADYCARDIA WITH OCCASIONAL SUPRAVENTRICULAR PREMATURE COMPLEXES Compared to ECG 06/14/2022 07:46:25 Sinus rhythm no longer present T-wave abnormality no longer present Electronically Signed On 10-24-2022 18:53:17 CDT by Alba Gunn M.D. [id number]
[2022-10-24 13:35] LABS: Alanine Aminotransferase 20 U/L (0-33); Alkaline Phosphatase 97 U/L (35-105); Anion Gap 11.5 (5-19); Aspartate Amino Transferase 22 U/L (0-32); Blood Urea Nitrogen 21 mg/dL (8-23); Calcium 8.8 mg/dL (8.5-10.5); Carbon Dioxide 26 mmol/L (22-29); Chloride 104 mmol/L (98-107); Globulin 2.2 g/dL (1.3-4.6); Glucose 91 mg/dL (65-115); Osmolality Calculated 287 mOsm/kg (285-295); Potassium 4.5 mmol/L (3.5-5.1); Sodium 137 mmol/L (136-145); Total Bilirubin 0.7 mg/dL (0.15-1.2); Total Protein 6.2 g/dL (6.6-8.7)
--- NOTE | 2022-10-24 14:02 | W.ED.ARRPALP ---
HPI - Arrhythmia/Palpitations General: Chief Complaint: Arrhythmia/Palpitations Stated Complaint: Delilah sent for low heart rt Time Seen by Provider: 10/24/22 13:00 History of Present Illness: 77-year-old female with history of coronary disease and bypass presents emergency room today with dizziness and feeling fatigue within the past 24 hours. Patient further reveals that she checked her heart rate at home and the heart was less than 40. Patient is any chest pain, headache, blurry vision or change in vision. No nausea, vomiting, diarrhea or bloody stool. Denies any dysuria, hematuria urine frequency. No known sick contact or recent foreign travel. Associated symptoms: Reports pre-syncope; Deny diaphoresis Review of Systems General: Reports: 10 or more systems reviewed and unremarkable except in HPI and below Const: Denies: fever(s), chills, body aches, change in appetite, change in weight, fatigue, malaise, night sweats, diaphoresis, change in sleep pattern or daytime sleepiness Card: Reports: palpitations, lightheadedness and pre-syncope; Denies: chest pain, irregular heart rhythm, edema, swelling of feet/ankles, dyspnea on exertion, orthopnea, leg pain with exertion or acrocyanosis Neuro: Denies: headache(s), numbness in extremities, weakness in extremities, sensory changes, lack of coordination, difficulty walking, frequent falls, dizziness or vertigo PFS ED PFSH: Medical History Anxiety Atherosclerosis Cognitive decline Coronary artery disease Diverticulosis History of myocardial infarction Hyperlipidemia Hypertension Insomnia Osteoporosis Surgical History History of cataract extraction with lens replacement History of coronary artery bypass graft x 2 History of right mastoidectomy Status post lumbar laminectomy Physical Exam Const: COMMON NORMALS: no acute distress, average body habitus, patient oriented x3, no limitations, healthy appearing, alert and well nourished Chest: COMMONS NORMALS: normal inspection of the chest, normal palpation of entire chest wall, normal inspection of the breasts and normal palpation of the breasts Breast/axilla inspection: Yes normal inspection of the breasts BREAST/AXILLA PALPATION: Yes normal palpation of the breasts Cardio: COMMON NORMALS: S1 normal heart sound present and S2 normal heart sound present JUGULAR VENOUS DISTENTION: no JVD PALPATION: normal PMI RATE: bradycardic HEART SOUNDS: S1 normal heart sound present and S2 normal heart sound present GI: COMMON NORMALS: Normal to inspection, nondistended, normoactive bowel sounds present, Soft to palpation, non-tender, No hepatosplenomegaly present, no masses and no bruits PALPATION: Yes Soft to palpation and Yes No hepatosplenomegaly present Extremity: COMMON NORMALS: normal to inspection, full ROM, capillary refill normal, no joint enlargement, no clubbing, cyanosis or edema, no calf tenderness and no pedal edema Neuro: COMMON NORMALS: patient oriented x3 SENSORIUM/ORIENTATION: Yes alert Course Reevaluation(s): Reevaluation #1: Patient was given atropine and reexamined. Heart rate did improve slightly to high 50s. Consultations: Consultation #1: Discussed patient with rubbish collector. We have decided to hold verapamil. Consultation #2: Discussed patient with the hospitalist will admit for further evaluation and treatment. Vital Signs: Vital signs: Vital Signs Temperature 98.1 F 10/24/22 12:54 Pulse Rate 56 L 10/24/22 16:12 Respiratory Rate 19 H 10/24/22 15:20 Blood Pressure 189/72 10/24/22 16:12 Pulse Oximetry 96 10/24/22 16:12 Oxygen Delivery Me thod Room Air 10/24/22 16:12 MDM - Arrhythmia/Palpitations Medical Decision Making Patient made comfortable in emergency room without any acute distress. Patient had multiple work-up done including CBC, CMP, troponin and EKG. I was able to discuss patient with the rubbish collector and the hospitalist. I discussed current plan and disposition with patient and . Differential Diagnosis Likely palpitations, anxiety, sinus tachycardia, artial fibrillation, artial flutter, ventricular premature beats, supraventricular tachycardia and ventricular tachycardia Lab Data 10/24/22 13:05 10/24/22 13:05 Laboratory Results WBC 5.03 10^3/uL (3.29-11.43) 10/24/22 13:05 RBC 4.50 10^6/uL (3.85-5.65) 10/24/22 13:05 Hgb 13.30 g/dL (11.27-16.99) 10/24/22 13:05 Hct 41.7 % (36-47) 10/24/22 13:05 MCV 92.7 fl (85-98) 10/24/22 13:05 MCH 29.6 pg (27-33) 10/24/22 13:05 MCHC 31.9 g/dL (30-55) 10/24/22 13:05 RDW 13.2 % (12.1-15.1) 10/24/22 13:05 Plt Count 165 10^3/cmm (157-399) 10/24/22 13:05 MPV 9.0 fL (7.4-10.4) 10/24/22 13:05 Neut % (Auto) 63.6 % 10/24/22 13:05 Lymph % (Auto) 23.7 % 10/24/22 13:05 [place] % (Auto) 9.3 % 10/24/22 13:05 Eos % (Auto) 2.6 % 10/24/22 13:05 Baso % (Auto) 0.6 % 10/24/22 13:05 Neut # (Auto) 3.20 10^3/uL (1.8-7.7) 10/24/22 13:05 Lymph # (Auto) 1.2 10^3/uL (0.8-4.8) 10/24/22 13:05 [place] # (Auto) 0.5 10^3/uL (0.2-0.9) 10/24/22 13:05 Eos # (Auto) 0.1 10^3/uL (0.0-0.8) 10/24/22 13:05 Baso # (Auto) 0.0 10^3/uL (0.0-0.1) 10/24/22 13:05 Nucleated RBC % (auto) 0 % 10/24/22 13:05 Nucleated RBCs # 0.0 /100WBC 10/24/22 13:05 Sodium 137 mmol/L (136-145) 10/24/22 13:05 Potassium 4.5 mmol/L (3.5-5.1) 10/24/22 13:05 Chloride 104 mmol/L (98-107) 10/24/22 13:05 Carbon Dioxide 26 mmol/L (22-29) 10/24/22 13:05 Anion Gap 11.5 (5-19) 10/24/22 13:05 BUN 21 mg/dL (8-23) 10/24/22 13:05 Creatinine 1.0 mg/dL (0.5-0.9) H 10/24/22 13:05 GFR Calculation Not Reportable 10/24/22 13:05 Glucose 91 mg/dL (65-115) 10/24/22 13:05 Calculated Osmolality 287 mOsm/kg (285-295) 10/24/22 13:05 Calcium 8.8 mg/dL (8.5-10.5) 10/24/22 13:05 Total Bilirubin 0.7 mg/dL (0.15-1.2) 10/24/22 13:05 AST 22 U/L (0-32) 10/24/22 13:05 ALT 20 U/L (0-33) 10/24/22 13:05 Alkaline Phosphatase 97 U/L (35-105) 10/24/22 13:05 Troponin T Baseline 12 ng/L (0-10) H 10/24/22 13:05 Total Protein 6.2 g/dL (6.6-8.7) L 10/24/22 13:05 Albumin 4.0 g/dL (3.5-5.2) 10/24/22 13:05 Globulin 2.2 g/dL (1.3-4.6) 10/24/22 13:05 TSH 1.43 uIU/mL (0.27-4.20) 10/24/22 13:05 Urine Color Yellow (Yellow) 10/24/22 13:21 Urine Appearance Clear (CLEAR) 10/24/22 13:21 Urine pH 7 (5-7) 10/24/22 13:21 Ur Specific [place] 1.010 (1.005-1.030) 10/24/22 13:21 Urine Protein Neg (Negative) 10/24/22 13:21 Urine Glucose (UA) Norm (Normal) 10/24/22 13:21 Urine Ketones Negative (Negative) 10/24/22 13:21 Urine Blood Neg (Negative) 10/24/22 13:21 Urine Nitrate Negative (Negative) 10/24/22 13:21 Urine Bilirubin Neg (Negative) 10/24/22 13:21 Urine Urobilinogen Norm mg/dL (Negative) 10/24/22 13:21 Ur Leukocyte Esterase 2+ (Negative) H 10/24/22 13:21 Urine RBC 0-4 /hpf (0-2) H 10/24/22 13:21 Urine WBC 25-40 /hpf (0-5) H 10/24/22 13:21 Ur Squamous Epith Cells 0-4 /hpf (0-5) H 10/24/22 13:21 Amorphous Sediment Not Reportable 10/24/22 13:21 Urine Bacteria 1+ /hpf (NONE) H 10/24/22 13:21 XR interpretation done by ED provider, pending radiology final review EKG Data EKG 1: Interpretation: Sinus bradycardia rate of 51 NM interval 165 QRS duration [address] changes Critical Care Time Critical Care Time: Critical Care Time: Yes Total Critical Care Time: 40 Attestation: Patient made comfortable emergency room and was given atropine. I reviewed labs, EKG and previous medical records. Time spent discussing patient with family and the hospitalist. 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
[2022-10-24] MEDS: atropine 0.1 mg/mL Syr 10 mL 0.5 MG IVP (14:24)
--- NOTE | 2022-10-24 14:35 | P.CONIM_ITS ---
Providers/Reason For Consult Consulting Physician/Specialty*: Dr. Gunn, Cardiology Reason for Consult*: Symptomatic bradycardia, dizziness Primary Care Provider: Olga Mazariegos MD History of Present Illness History of Present Illness Mellissa Hurt is a 77 year old female with PMHx of atherosclerotic heart disease and had a two-vessel coronary artery bypass surgery in 2003 at the [facility] by Dr. Moseley.?She also has history of CVA (happened few days after the open heart surgery.? She had aphasia and right-sided weakness for a while and no residual defecits now.? She has a history of hypertension and dyslipidemia.?She saw Dr. Riggins before. She had some kind of rash and leg swelling with amlodipine and was switched to verapamil 2-3 weeks back. She started having lightheadedness 1 hour taking her medications including verapamil this morning. HR on arrival to ER was in high 30's and low 40's. EKG showed sinus bradycardia. She received 1 dose of atropine with HR in 50's at the time of evaluation. She c/o feeling weakness. No chest pain, exertional SOB. Review of Systems Const: Denies: fever(s) Eyes: Denies: change in vision ENMT: Denies: throat pain Card: Reports: lightheadedness; Denies: chest pain or edema Resp: Denies: dyspnea GI: Denies: abdominal pain : Reports: urinary incontinence and other (lower abdominal pain); Denies: flank pain Musc: Denies: neck pain Neuro: Reports: dizziness and restless legs Medications/Allergies Home Medications Medication Instructions Recorded Confirmed Last Taken Type brimonidine 0.2 %-timolol 0.5 % 1 drp ophthalmic (eye) BID 02/26/22 10/24/22 10/24/22 History eye drops (Combigan) cetirizine 10 mg tablet 10 mg PO DAILY PRN Allergy Symptoms 02/26/22 10/24/22 06/11/22 History cholecalciferol (vitamin D3) 25 25 mcg PO DAILY 90 days #90 caps 04/07/22 10/24/22 10/24/22 Rx mcg (1,000 unit) capsule (Vitamin D3) bisacodyl 10 mg rectal suppository 10 mg [place] BID PRN constipation #12 06/17/22 10/24/22 10/24/22 Rx (Dulcolax (bisacodyl)) ea hydralazine 25 mg tablet 25 mg PO TID #270 tabs 09/24/22 10/24/22 10/24/22 Rx atorvastatin 80 mg tablet 80 mg PO DAILY #90 tabs 10/06/22 10/24/22 10/24/22 Rx clopidogrel 75 mg tablet 75 mg PO QAM #90 tabs 10/06/22 10/24/22 10/24/22 Rx donepezil 10 mg tablet 10 mg PO DAILY #90 tabs 10/06/22 10/24/22 10/24/22 Rx duloxetine 30 mg capsule,delayed 30 mg PO DAILY #90 caps 10/06/22 10/24/22 10/24/22 Rx release gabapentin 100 mg capsule 100 mg PO BID #180 caps 10/06/22 10/24/22 10/24/22 Rx losartan 100 mg tablet 100 mg PO QAM #90 tabs 10/06/22 10/24/22 10/24/22 Rx tolterodine 2 mg capsule,extended 2 mg PO DAILY #90 caps 10/06/22 10/24/22 10/24/22 Rx release 24 hr (Detrol LA) trazodone 50 mg tablet See Rx Instructions PO DAILY #30 10/09/22 10/24/22 10/23/22 Rx tabs verapamil 120 mg 24 hr 120 mg PO DAILY #30 caps 10/09/22 10/24/22 10/24/22 Rx capsule,extended release docusate sodium 100 mg capsule 100 mg PO BID 10/24/22 10/24/22 10/24/22 History oxybutynin chloride 5 mg 5 mg PO QAM 10/24/22 10/24/22 10/24/22 History tablet,extended release 24 hr ropinirole 0.5 mg tablet 0.5 mg PO BEDTIME 10/24/22 10/24/22 10/23/22 History Allergies Allergy/AdvReac Type Severity Reaction Status Date / Time lisinopril Allergy cough Verified 10/24/22 13:56 Sulfa (Sulfonamide Allergy severe Verified 10/24/22 13:56 Antibiotics) reaction landing her in hospital beta blockers Allergy makes her Uncoded 06/19/22 11:00 cough PFSH Acute PFSH: Medical History Anxiety Atherosclerosis Cognitive decline Coronary artery disease Diverticulosis History of myocardial infarction Hyperlipidemia Hypertension Insomnia Osteoporosis Surgical History History of cataract extraction with lens replacement History of coronary artery bypass graft x 2 History of right mastoidectomy Status post lumbar laminectomy Vitals/I&O/Wt Last Vital Signs Temp 98.1 F 10/24/22 12:54 Pulse 47 L 10/24/22 13:30 Resp 17 10/24/22 13:30 BP 180/77 10/24/22 13:30 Pulse Ox 97 10/24/22 13:30 O2 Del Method Room Air 10/24/22 13:30 Weight last 48 hrs Weight 160 lb Physical Exam Narrative: GENERAL: Averagely built and averagely nourished in no acute distress HEENT: Extraocular movement intact. No pallor or icterus. NECK: central trachea, No JVD, No carotid bruit. CARDIOVASCULAR SYSTEM: S1-S2 regular. bradycardia+. No murmur rubs or gallops. RESPIRATORY SYSTEM: Chest clear to auscultation. No wheezes rhonchi or rubs heard. No use of accessory muscles. ABDOMEN: Soft, nontender and nondistended. Normal bowel sounds present. EXTREMITIES: No cyanosis or edema. No signs of chronic venous insufficiency. 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 No focal neurological deficits. SKIN: Normal turgor and temperature. Data 10/24/22 13:05 10/24/22 13:05 Other data: TTE (05/15/22) CONCLUSIONS ?Normal left ventricular size and systolic function, EF 59 %. ?Mild left ventricular hypertrophy. No regional wall motion ?abnormalities. Grade I/IV diastolic dysfunction (abnormal ?relaxation filling pattern), normal to mildly elevated filling ?pressures. ?Thickened mitral valve. Mild-moderate mitral valve ?regurgitation. ?Thickened aortic valve. Trace to mild aortic valve ?regurgitation. ?Mild tricuspid valve regurgitation. ?Estimated pulmonary artery peak systolic pressure 36 mmHg ?There is no pericardial effusion. ?There are no intracardiac masses. ?No similar previous studies are available for comparison Carotid duplex (05/15/22) CONCLUSIONS ?Moderate plaque at the left bifurcation with a mild diffuse ?plaque in the internal carotid artery, suggesting less than 50% ?stenosis. ?Intimal thickening and minimal plaques in the right bifurcation ?and internal carotid artery ?No significant stenosis in the vertebral, subclavian and ?external carotid arteries, based on the above findings A&P Assessment and plan (1) Dizziness: Stop verapamil -will monitor closely on telemetry -need for monitor to be decided based on that (2) Bradycardia, drug induced: (3) Hypertension: BP running high at this time -med changes based on BP. (4) Atherosclerosis of coronary artery of [place] heart without angina pectoris: s/p CABG -no recent stress testing Patient is stable and does not have any significant exertional symptoms. Compliant with medications and denies having any side effects. Continue current medications. (5) Old cerebrovascular accident (CVA) without late effect: (6) Hyperlipidemia: Coding Level of Care Code 93265 Diagnoses Dizziness R42 Bradycardia, drug induced R00.1; T50.905A Hypertension I10 Atherosclerosis of coronary artery of [place] heart without angina pectoris I25.10 Old cerebrovascular accident (CVA) without late effect Z86.73 Hyperlipidemia E78.5
[2022-10-24] MEDS: sodium chloride 0.9% 500 ML 999 ML IV (14:39)
[2022-10-24 14:44] LABS: Add Urine Microscopic? YES; Bilirubin Urine Neg (Negative); Blood Urine Neg (Negative); Glucose Urine UA Norm (Normal); Ketones Urine Negative (Negative); Leukocyte Esterase Urine 2+ (Negative); Nitrate Urine Negative (Negative); Protein Urine Neg (Negative); Urine Appearance Clear (CLEAR); Urine Color Yellow (Yellow); Urobilinogen Urine Norm (Negative); pH Urine 7 (5-7)
[2022-10-24 14:45] LABS: Add Urine Culture? Yes; Bacteria Urine 1+ /hpf; RBC Urine 0-4 /hpf (0-2); Squamous Epithelial Cell Urine 0-4 /hpf (0-5); WBC Urine 25-40 /hpf (0-5)
[2022-10-24 14:59] LABS: Troponin(5th) Baseline 12 ng/L (0-10)
--- NOTE | 2022-10-24 16:03 | P.HP_ITS ---
Providers/Chief Complaint Primary Care Provider: Olga Mazariegos MD Chief Complaint: Delilah sent for low heart rt History of Present Illness Mellissa Hurt is a 77 year old female who follows up with Dr. Riggins outpatient for her history of CABG, presented with chief complaint dizziness and presyncope in the ER she was diagnosed with sinus bradycardia. Heart rate was extremely low for which she was given atropine which improved her heart rate and symptoms. Cardiology was consulted. She is showing sinus bradycardia on EKG wi thout any hemodynamic instability by the time I saw her she was in low 50s with high blood pressure. Hold verapamil, she is not sure whether she took verapamil this morning She is denying fever, chest pain, shortness of breath, endorsing presyncope, dizziness, lightheadedness. Review of Systems Const: Denies: fever(s) Eyes: Denies: change in vision ENMT: Denies: throat pain Card: Denies: chest pain Resp: Denies: dyspnea GI: Denies: abdominal pain : Denies: flank pain Musc: Denies: neck pain Neuro: Reports: dizziness Medications/Allergies Home Medications Medication Instructions Recorded Confirmed Last Taken Type brimonidine 0.2 %-timolol 0.5 % 1 drp ophthalmic (eye) BID 02/26/22 10/24/22 10/24/22 History eye drops (Combigan) cetirizine 10 mg tablet 10 mg PO DAILY PRN Allergy Symptoms 02/26/22 10/24/22 06/11/22 History cholecalciferol (vitamin D3) 25 25 mcg PO DAILY 90 days #90 caps 04/07/22 10/24/22 10/24/22 Rx mcg (1,000 unit) capsule (Vitamin D3) bisacodyl 10 mg rectal suppository 10 mg ID BID PRN constipation #12 06/17/22 10/24/22 10/24/22 Rx (Dulcolax (bisacodyl)) ea hydralazine 25 mg tablet 25 mg PO TID #270 tabs 09/24/22 10/24/22 10/24/22 Rx atorvastatin 80 mg tablet 80 mg PO DAILY #90 tabs 10/06/22 10/24/22 10/24/22 Rx clopidogrel 75 mg tablet 75 mg PO QAM #90 tabs 10/06/22 10/24/22 10/24/22 Rx donepezil 10 mg tablet 10 mg PO DAILY #90 tabs 10/06/22 10/24/22 10/24/22 Rx duloxetine 30 mg capsule,delayed 30 mg PO DAILY #90 caps 10/06/22 10/24/22 10/24/22 Rx release gabapentin 100 mg capsule 100 mg PO BID #180 caps 10/06/22 10/24/22 10/24/22 Rx losartan 100 mg tablet 100 mg PO QAM #90 tabs 10/06/22 10/24/22 10/24/22 Rx tolterodine 2 mg capsule,extended 2 mg PO DAILY #90 caps 10/06/22 10/24/22 10/24/22 Rx release 24 hr (Detrol LA) trazodone 50 mg tablet See Rx Instructions PO DAILY #30 10/09/22 10/24/22 10/23/22 Rx tabs verapamil 120 mg 24 hr 120 mg PO DAILY #30 caps 10/09/22 10/24/22 10/24/22 Rx capsule,extended release docusate sodium 100 mg capsule 100 mg PO BID 10/24/22 10/24/22 10/24/22 History oxybutynin chloride 5 mg 5 mg PO QAM 10/24/22 10/24/22 10/24/22 History tablet,extended release 24 hr ropinirole 0.5 mg tablet 0.5 mg PO BEDTIME 10/24/22 10/24/22 10/23/22 History Allergies Allergy/AdvReac Type Severity Reaction Status Date / Time lisinopril Allergy cough Verified 10/24/22 13:56 Sulfa (Sulfonamide Allergy severe Verified 10/24/22 13:56 Antibiotics) reaction landing her in hospital beta blockers Allergy makes her Uncoded 06/19/22 11:00 cough PFSH Acute 2 PFSH: Medical History Anxiety Atherosclerosis Cognitive decline Coronary artery disease Diverticulosis History of myocardial infarction Hyperlipidemia Hypertension Insomnia Osteoporosis Surgical History History of cataract extraction with lens replacement History of coronary artery bypass graft x 2 History of right mastoidectomy Status post lumbar laminectomy Vitals/I&O/Wt Last Vital Signs Temp 98.1 F 09/15/23 12:54 Pulse 56 L 10/24/22 15:20 Resp 19 H 10/24/22 15:20 BP 183/86 10/24/22 15:20 Pulse Ox 96 10/24/22 15:20 O2 Del Method Room Air 10/24/22 15:20 10/24/22 10/24/22 10/24/22 06:59 14:59 22:59 Intake Total 500 / 500 Balance 500 / 500 Weight last 48 hrs Weight 72.575 kg Physical Exam Narrative: Jasson madrigal female Heart rate in 50s Hypertensive Nonfocal neuro exam Currently on room air GCS 15 Jasson madrigal S1, S2 Data 10/24/22 13:05 10/24/22 13:05 A&P Assessment and plan (1) Dizziness: (2) Bradycardia, drug induced: (3) Coronary artery disease: Plan Symptomatic bradycardia Sinus bradycardia on EKG Asymptomatic Patient was given atropine Discontinue verapamil Patient may need Holter monitor at the time of discharge Plan to discharge tomorrow Check TSH No electrolyte imbalance Active chest pain Low status post with cardiology recommendations if she would require any ischemic work-up I will continue her Plavix for For hypertension I will continue losartan, hydralazine we will add amlodipine Cardiac diet Monitor overnight Attestations Medical Necessity Statement*: Anticipating discharge within 48 hours Diagnoses Dizziness R42 Bradycardia, drug induced R00.1; T50.905A Coronary artery disease I25.10
[2022-10-24 17:24] LABS: Thyroid Stimulating Hormone 1.43 uIU/mL (0.27-4.20)
[2022-10-24] MEDS: heparin 5,000 unit/mL INJ 1 mL 5000 UNIT SUBCUT (18:37)
[2022-10-24] MEDS: losartan 50 mg Tablet 100 MG PO (21:14)
[2022-10-24] MEDS: ropinirole 0.25 mg Tablet 0.5 MG PO (21:15)
[2022-10-24] MEDS: hyDRALAzine 25 mg Tablet PO (21:15)
[2022-10-24] MEDS: trazodone 50 mg Tablet PO (22:26)
[2022-10-25] VITALS (8 sets, daily range): BP systolic 150–189; BP diastolic 65–97; PULSE 52–87; RESP 15–24; TEMP 37–37.1; O2SAT 93–95
[2022-10-25 05:31] LABS: Anion Gap 11.9 (5-19); Blood Urea Nitrogen 19 mg/dL (8-23); Calcium 8.7 mg/dL (8.5-10.5); Carbon Dioxide 26 mmol/L (22-29); Chloride 107 mmol/L (98-107); Glucose 96 mg/dL (65-115); Magnesium 2.3 mg/dL (1.7-2.3); Osmolality Calculated 294 mOsm/kg (285-295); Phosphorus 3.2 mg/dL (2.5-4.5); Potassium 3.9 mmol/L (3.5-5.1); Sodium 141 mmol/L (136-145)
[2022-10-25] MEDS: heparin 5,000 unit/mL INJ 1 mL 5000 UNIT SUBCUT (06:10)
[2022-10-25] MEDS: clopidogrel 75 mg Tablet PO (06:10)
[2022-10-25] MEDS: amlodipine 10 mg Tablet PO (08:37)
[2022-10-25] MEDS: losartan 50 mg Tablet 100 MG PO (08:37)
[2022-10-25] MEDS: atorvastatin 40 mg Tablet 80 MG PO (08:37)
[2022-10-25] MEDS: hyDRALAzine 25 mg Tablet PO (08:37)
--- NOTE | 2022-10-25 11:16 | P.PN_ITS ---
Subjective Subjective: HR dropping into high 30's and 40's at night. remains mostly in SR. HR in 60's presently Medications: Reviewed: Yes Vitals/I&O/Wt Last Vital Signs Temp 98.7 F 10/25/22 07:51 Pulse 87 10/25/22 08:11 Resp 16 10/25/22 08:11 BP 175/97 10/25/22 08:37 Pulse Ox 95 10/25/22 08:11 O2 Del Method Room Air 10/25/22 08:40 10/24/22 10/25/22 10/25/22 22:59 06:59 14:59 Intake Total 4741 / 4741 420 / 5161 720 / 720 Output Total 900 / 900 Balance 4741 / 4741 -480 / 4261 720 / 720 Weight last 48 hrs Weight 160 lb Physical Exam Narrative: GENERAL: Averagely built and averagely nourished in no acute distress HEENT: Extraocular movement intact. No pallor or icterus. NECK: central trachea, No JVD, No carotid bruit. CARDIOVASCULAR SYSTEM: S1-S2 regular. No murmur rubs or gallops. RESPIRATORY SYSTEM: Chest clear to auscultation. No wheezes rhonchi or rubs heard. No use of accessory muscles. ABDOMEN: Soft, nontender and nondistended. Normal bowel sounds present. EXTREMITIES: No cyanosis or edema. No signs of chronic venous insufficiency. 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 No focal neurological deficits. SKIN: Normal turgor and temperature. Data 10/24/22 13:05 10/25/22 04:19 A&P Assessment and plan (1) Dizziness: Stop verapamil; last dose 10/24/22 in morning -will monitor closely on telemetry -Plan for 2 week event monitor on discharge. -dizziness has resolved -normal TSH -f/u with Dr. Riggins in 4 -6 weeks (2) Bradycardia, drug induced: (3) Hypertension: BP running high at this time -med changes based on BP. -s/e with amlodipine. -increase hydralazine to 50 mg TID (4) Atherosclerosis of coronary artery of [place] heart without angina pectoris: s/p CABG -no recent stress testing. However, Patient is stable and does not have any significant exertional symptoms. -Compliant with medications and denies having any side effects. Continue current medications. (5) Old cerebrovascular accident (CVA) without late effect: (6) Hyperlipidemia: Attestations Medical Necessity Statement*: stable to be discharged home Coding Level of Care Code 53376 Diagnoses Dizziness R42 Bradycardia, drug induced R00.1; T50.905A Hypertension I10 Atherosclerosis of coronary artery of [place] heart without angina pectoris I25.10 Old cerebrovascular accident (CVA) without late effect Z86.73 Hyperlipidemia E78.5
--- NOTE | 2022-10-25 11:36 | P.DS_ITS ---
Discharge Providers Date of Admission: 10/24/22 14:55 Date of Discharge: October 25, 2022 Attending Provider at Admission: Morgan Santiago MD Attending Provider at Discharge: Morgan Santiago MD Primary Care Provider: Olga Mazariegos MD Diagnoses at Discharge Discharge Diagnosis (1) Dizziness: Status: Acute (2) Bradycardia, drug induced: Status: Acute (3) Hypertension: Status: Chronic (4) Atherosclerosis of coronary artery of [place] heart without angina pectoris: Status: Acute (5) Old cerebrovascular accident (CVA) without late effect: Status: Acute (6) Hyperlipidemia: Status: Chronic Reason for Visit Reason for Visit: Delilah sent for low heart rt Hospital Course Hospital Course 77-year-old female who was admitted for management evaluation of bradycardia which was verapamil induced, patient remained hemodynamically stable with observation status overnight on telemetry floor, her symptoms improved, she will not take verapamil in future, EKG showed sinus bradycardia, cardiology was consulted for further recommendations, patient carries history of CABG, EF is 59% grade 1 diastolic dysfunction, recommended event monitor for 2 weeks Physical Exam Narrative: Patient is awake and alert Sinus rhythm, heart rate fluctuating 60-65 Hemodynamically stable GCS 15 Euvolemic at the bedside Discharge Data Studies Completed and Pending Pending at discharge Category Date Time Status Urine Culture Stat Lab 10/24/22 13:21 Received Laboratory Results WBC 5.03 10^3/uL (3.29-11.43) 10/24/22 13:05 RBC 4.50 10^6/uL (3.85-5.65) 10/24/22 13:05 Hgb 13.30 g/dL (11.27-16.99) 10/24/22 13:05 Hct 41.7 % (36-47) 10/24/22 13:05 MCV 92.7 fl (85-98) 10/24/22 13:05 MCH 29.6 pg (27-33) 10/24/22 13:05 MCHC 31.9 g/dL (30-55) 10/24/22 13:05 RDW 13.2 % (12.1-15.1) 10/24/22 13:05 Plt Count 165 10^3/cmm (157-399) 10/24/22 13:05 MPV 9.0 fL (7.4-10.4) 10/24/22 13:05 Neut % (Auto) 63.6 % 10/24/22 13:05 Lymph % (Auto) 23.7 % 10/24/22 13:05 [place] % (Auto) 9.3 % 10/24/22 13:05 Eos % (Auto) 2.6 % 10/24/22 13:05 Baso % (Auto) 0.6 % 10/24/22 13:05 Neut # (Auto) 3.20 10^3/uL (1.8-7.7) 10/24/22 13:05 Lymph # (Auto) 1.2 10^3/uL (0.8-4.8) 10/24/22 13:05 [place] # (Auto) 0.5 10^3/uL (0.2-0.9) 10/24/22 13:05 Eos # (Auto) 0.1 10^3/uL (0.0-0.8) 10/24/22 13:05 Baso # (Auto) 0.0 10^3/uL (0.0-0.1) 10/24/22 13:05 Nucleated RBC % (auto) 0 % 10/24/22 13:05 Nucleated RBCs # 0.0 /100WBC 10/24/22 13:05 Sodium 141 mmol/L (136-145) 10/25/22 04:19 Potassium 3.9 mmol/L (3.5-5.1) 10/25/22 04:19 Chloride 107 mmol/L (98-107) 10/25/22 04:19 Carbon Dioxide 26 mmol/L (22-29) 10/25/22 04:19 Anion Gap 11.9 (5-19) 10/25/22 04:19 BUN 19 mg/dL (8-23) 10/25/22 04:19 Creatinine 1.1 mg/dL (0.5-0.9) H 10/25/22 04:19 GFR Calculation Not Reportable 10/25/22 04:19 Glucose 96 mg/dL (65-115) 10/25/22 04:19 Calculated Osmolality 294 mOsm/kg (285-295) 10/25/22 04:19 Calcium 8.7 mg/dL (8.5-10.5) 10/25/22 04:19 Phosphorus 3.2 mg/dL (2.5-4.5) 10/25/22 04:19 Magnesium 2.3 mg/dL (1.7-2.3) 10/25/22 04:19 Total Bilirubin 0.7 mg/dL (0.15-1.2) 10/24/22 13:05 AST 22 U/L (0-32) 10/24/22 13:05 ALT 20 U/L (0-33) 10/24/22 13:05 Alkaline Phosphatase 97 U/L (35-105) 10/24/22 13:05 Troponin T Baseline 12 ng/L (0-10) H 10/24/22 13:05 C-Reactive Protein 4.0 mg/L (0.0-4.9) 10/25/22 04:19 Total Protein 6.2 g/dL (6.6-8.7) L 10/24/22 13:05 Albumin 4.0 g/dL (3.5-5.2) 10/24/22 13:05 Globulin 2.2 g/dL (1.3-4.6) 10/24/22 13:05 TSH 1.43 uIU/mL (0.27-4.20) 10/24/22 13:05 Urine Color Yellow (Yellow) 10/24/22 13:21 Urine Appearance Clear (CLEAR) 10/24/22 13:21 Urine pH 7 (5-7) 10/24/22 13:21 Ur Specific [place] 1.010 (1.005-1.030) 10/24/22 13:21 Urine Protein Neg (Negative) 10/24/22 13:21 Urine Glucose (UA) Norm (Normal) 10/24/22 13:21 Urine Ketones Negative (Negative) 10/24/22 13:21 Urine Blood Neg (Negative) 10/24/22 13:21 Urine Nitrate Negative (Negative) 10/24/22 13:21 Urine Bilirubin Neg (Negative) 10/24/22 13:21 Urine Urobilinogen Norm mg/dL (Negative) 10/24/22 13:21 Ur Leukocyte Esterase 2+ (Negative) H 10/24/22 13:21 Urine RBC 0-4 /hpf (0-2) H 10/24/22 13:21 Urine WBC 25-40 /hpf (0-5) H 09/15/23 13:21 Ur Squamous Epith Cells 0-4 /hpf (0-5) H 10/24/22 13:21 Amorphous Sediment Not Reportable 10/24/22 13:21 Urine Bacteria 1+ /hpf (NONE) H 10/24/22 13:21 Vitals Last Vital Signs Temp 98.7 F 10/25/22 07:51 Pulse 87 10/25/22 08:11 Resp 16 10/25/22 08:11 BP 175/97 10/25/22 08:37 Pulse Ox 95 10/25/22 08:11 O2 Del Method Room Air 10/25/22 08:40 Discharge Plan Discharge Patient Disposition: Home Condition: Stable Prescriptions: New amlodipine 10 mg Tablet 10 mg PO DAILY Qty: 90 0RF Continued bisacodyl [Dulcolax (bisacodyl)] 10 mg suppository 10 mg [place] BID PRN (Reason: constipation) Qty: 12 0RF trazodone 50 mg tablet See Rx Instructions PO DAILY Qty: 30 0RF Rx Instructions: 0.5-1 tab po qhs; take 30-60 min before bed cetirizine 10 mg tablet 10 mg PO DAILY PRN (Reason: Allergy Symptoms) brimonidine-timolol [Combigan] 0.2-0.5 % drops 1 drp ophthalmic (eye) BID Rx Instructions: both eyes cholecalciferol (vitamin D3) [Vitamin D3] 25 mcg (1,000 unit) capsule 25 mcg PO DAILY 90 Days Qty: 90 1RF hydralazine 25 mg tablet 25 mg PO TID Qty: 270 3RF atorvastatin 80 mg tablet 80 mg PO DAILY Qty: 90 1RF clopidogrel 75 mg tablet 75 mg PO QAM Qty: 90 1RF donepezil 10 mg tablet 10 mg PO DAILY Qty: 90 1RF gabapentin 100 mg capsule 100 mg PO BID Qty: 180 1RF duloxetine 30 mg capsule,delayed release(DR/EC) 30 mg PO DAILY Qty: 90 1RF tolterodine [Detrol LA] 2 mg capsule,extended release 24hr 2 mg PO DAILY Qty: 90 1RF losartan 100 mg tablet 100 mg PO QAM Qty: 90 1RF ropinirole 0.5 mg tablet 0.5 mg PO BEDTIME docusate sodium 100 mg capsule 100 mg PO BID oxybutynin chloride 5 mg tablet extended release 24hr 5 mg PO QAM Discontinued verapamil 120 mg capsule,ext rel. pellets 24 hr 120 mg PO DAILY Qty: 30 0RF Discharge Orders: Discharge Order (Routine); Ordered 10/25/22 Ordered By: Morgan Santiago Other Ambulatory Orders: MCT/Event Monitor 14 Days (Routine) Timeframe: 2 Weeks Facility: [facility] - Location: Radiology Ordered By: Morgan Santiago Referrals: Olga Mazariegos MD [Primary Care Provider] - 7-10 days (Please call Dr. Mazariegos's Office on Thursday at [phone] to schedule a follow up appointment for 10 days. Thank you.) Alba Gunn MD [Physician] - 3 weeks (Please call Dr. Gunn's Office on Thursday at [phone] to schedule a follow up appointment for 3 weeks. Thank you.) Discharge Diet: Cardiac Patient Instructions: Opioid Safety Discharge Attestations Time Spent in Discharge Care*: greater than 30 min Quality Metrics Clinical Quality Measures [ No reported AMI, CVA or VTE this stay] Coding Level of Care Code Acute Code for Chg Fwd Diagnoses Dizziness R42 Bradycardia, drug induced R00.1; T50.905A Hypertension I10 Atherosclerosis of coronary artery of [place] heart without angina pectoris I25.10 Old cerebrovascular accident (CVA) without late effect Z86.73 Hyperlipidemia E78.5
== END 2022-10-25 13:45 | disposition home or self-care (01) ==
LOC: ER 15:04 → CSU 16:16
PROVIDERS: Emergency Medicine; Admitting Provider Internal Medicine; Emergency Provider Family Medicine; PCP Family Medicine; Visit Provider Internal Medicine
DX: R00.1 Bradycardia, unspecified (principal); R42 Dizziness and giddiness; T50.905A Adverse effect of unspecified drugs, medicaments and biological substances, initial encounter; I10 Essential (primary) hypertension; I25.10 Atherosclerotic heart disease of native coronary artery without angina pectoris; Z86.73 Personal history of transient ischemic attack (TIA), and cerebral infarction without residual deficits; E78.5 Hyperlipidemia, unspecified; M81.0 Age-related osteoporosis without current pathological fracture; Z95.1 Presence of aortocoronary bypass graft
CPT/HCPCS: 36415; 80048; 80053; 81001; 81015; 83735; 84100; 84443; 84484; 85025; 86140; 87077; 87086; 87186; 93005; 96372; 96374; 99285; G0378; J0461; J1644; J7040

== ENCOUNTER → 2022-11-04 14:06 | Outpatient (BNVA) | payer MEDICARE, OTHER, SELFPAY | PROVIDERS: PCP Family Medicine; Visit Provider Internal Medicine Cardiovascular Disease | DX: R00.1 Bradycardia, unspecified (principal); T50.905A Adverse effect of unspecified drugs, medicaments and biological substances, initial encounter; G47.9 Sleep disorder, unspecified; E78.5 Hyperlipidemia, unspecified; I10 Essential (primary) hypertension; R41.89 Other symptoms and signs involving cognitive functions and awareness; I25.10 Atherosclerotic heart disease of native coronary artery without angina pectoris; Z86.73 Personal history of transient ischemic attack (TIA), and cerebral infarction without residual deficits | CPT/HCPCS: 99214 ==

== ENCOUNTER 2022-11-16 17:41 | Inpatient (IN) | payer MEDICARE, OTHER, SELFPAY ==
[2022-11-16] VITALS (20 sets, daily range): BP systolic 128–223; BP diastolic 56–105; PULSE 43–64; RESP 11–18; TEMP 36.8–36.9; O2SAT 87–96; BMI 23.9
--- NOTE | 2022-11-16 18:25 | XRR_ITS ---
PROCEDURE INFORMATION: Exam: XR Chest Exam date and time: 11/16/2022 6:29 PM Age: 77 years old Clinical indication: Angina and shortness of breath; Prior surgery; Surgery date: 6+ months; Surgery type: Bypass; Patient HX: SOB; Chest heaviness; Copd TECHNIQUE: Imaging protocol: Radiologic exam of the chest. Views: 1 view. COMPARISON: [place] [id number] 08/07/2021 2:13 PM FINDINGS: Lungs: There is chronic lung change. No acute pneumonia or edema. Pleural spaces: Unremarkable. No pleural effusion. No pneumothorax. Heart/Mediastinum: Unremarkable. No cardiomegaly. Bones/joints: There has been a sternotomy. XR/XR chest 1V portable [id number] IMPRESSION: There are no acute concerning abnormalities.
[2022-11-16 18:43] LABS: Basophils % 0.6 %; Eosinophils # 0.2 10^3/uL (0.0-0.8); Eosinophils % 3.2 %; Hematocrit 38.2 % (36-47); Lymphocytes # 1.4 10^3/uL (0.8-4.8); Mean Corpuscular HGB Conc 32.5 g/dL (30-55); Mean Corpuscular Volume 92.5 fl (85-98); Mean Platelet Volume 9.1 fL (7.4-10.4); Monocytes # 0.4 10^3/uL (0.2-0.9); Monocytes % 8.9 %; Neutrophils # 2.75 10^3/uL (1.8-7.7); Neutrophils % 58.3 %; Nucleated Red Blood Cells % 0 %; Platelet Count 161 10^3/cmm (157-399); Red Blood Count 4.13 10^6/uL (3.85-5.65); White Blood Count 4.72 10^3/uL (3.29-11.43)
--- NOTE | 2022-11-16 18:47 | ECG_ITS ---
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 Measurements Intervals [place] Rate: 48 P: 64 [place]: 172 QRS: 45 QRSD: 78 T: 73 QT: 492 QTc: 442 Interpretive Statements SINUS BRADYCARDIA Compared to ECG 10/24/2022 13:19:01 No significant changes Electronically Signed On 11-16-2022 22:51:25 CDT by Michael Rowan M.D. [id number]
[2022-11-16 19:02] LABS: Troponin(5th) Baseline 16 ng/L (0-10)
[2022-11-16 19:05] LABS: Lactic Sepsis W/Reflex 0.7 mmol/L (0.5-2.2)
--- NOTE | 2022-11-16 19:11 | W.ED.SOB ---
HPI - SOB/Dyspnea General: Chief Complaint: Shortness of Breath/Dyspnea Stated Complaint: short of breathe Time Seen by Provider: 11/16/22 18:04 History of Present Illness: HPI Narrative: 77-year-old lady with 2 weeks of worsening shortness of breath. She became very short of breath at home today. In fact, she had a near syncopal episode in the bathroom. She called her who found her slumped over the sink. She did not injure herself. She remains short of breath. She is worn a heart monitor for the last week, because she has had a history of a low heart rate, down into the 30s. This is usually at night while she is sleeping she tells me. She denies any chest pain. She has had a history of coronary disease with bypass x2 vessels in the past. No fever. No leg swelling. Minimal cough. Associated symptoms: Deny abdominal pain, chest pain, fever(s), nausea, palpitations or vomiting Review of Systems Const: Denies: fever(s) or chills Card: Denies: chest pain or palpitations Resp: Reports: dyspnea; Denies: productive cough or non-productive cough GI: Denies: abdominal pain, nausea or vomiting Musc: Reports: neck pain (Chronic) and back pain (Chronic) Skin/Breast: Denies: rash Neuro: Denies: headache(s), numbness in extremities, weakness in extremities or vertigo PFSH ED PFSH: Medical History Anxiety Atherosclerosis Cognitive decline Coronary artery disease Diverticulosis History of myocardial infarction Hyperlipidemia Hypertension Insomnia Osteoporosis Surgical History History of cataract extraction with lens replacement History of coronary artery bypass graft x 2 History of right mastoidectomy Status post lumbar laminectomy Social History (Updated 11/16/22 @ 21:07 by Garett Wick MD) Smoking and tobacco status: never smoked Alcohol intake: never Substance/Drug Use: never Physical Exam Const: GENERAL APPEARANCE: cooperative, ill appearing (Mild) and frail appearing HENMT: COMMON NORMALS: normocephalic, atraumatic and Normal external nose present HEAD & SCALP: normocephalic and atraumatic FACE & SINUS: normal facial exam and face symmetric NOSE: Normal external nose present Eye: COMMON NORMALS: Equal, round and reactive pupils present and EOMs intact bilaterally PUPIL: Yes Equal, round and reactive pupils present Neck/C-Spine: GENERAL: Yes trachea midline Chest: CHEST: Yes Symmetrical chest wall rise Resp: COMMON NORMALS: normal respiratory effort, No retractions, No use of accessory muscles and clear to auscultation bilaterally AUSCULTATION: clear to auscultation bilaterally Cardio: COMMON NORMALS: regular rhythm RATE: bradycardic (Profound) RHYTHM: regular rhythm GI: COMMON NORMALS: Normal to inspection, nondistended, normoactive bowel sounds present Extremity: COMMON NORMALS: no pedal edema Neuro: SANDY COMA SCALE: document GCS findings Sandy coma scale eye opening: Spontaneous [place] coma scale verbal response: Orientated [place] coma scale motor response: Obey commands [place] coma scale total score: 15 SENSORY EXAM: Yes extremities (intact) Psych: COMMON NORMALS: speech normal SPEECH: Yes normal speech Skin: COMMON NORMALS: no rashes or lesions noted GENERAL SKIN EXAM: no rashes or lesions noted Course Vital Signs: Vital signs: Vital Signs Temperature 98.4 F 11/16/22 21:28 Pulse Rate 64 11/16/22 22:00 Respiratory Rate 16 11/16/22 21:30 Blood Pressure 195/81 11/16/22 21:28 Pulse Oximetry 89 L 11/16/22 21:30 Oxygen Delivery Me thod Room Air 11/16/22 21:28 MDM - SOB/Dyspnea Medical Decision Making Profound bradycardia and presyncopal patient. She is short of breath as well. She is maintaining her blood pressure currently. EKG shows a sinus bradycardia. No evidence of heart block. CBC is normal. Chest x-ray is negative. Troponin is 16. Electrolytes are normal. She is not on any rate lowering medication. Spoke with cardiology. Recommendations are atropine at bedside, temporary pacer pads on the patient, they will see in the morning. Spoke with hospitalist who will see the patient in the ER. Lab Data 11/16/22 18:40 11/16/22 18:40 Labs/Radiology: Radiology Impressions Chest X-Ray 11/16/22 18:25 IMPRESSION: There are no acute concerning abnormalities. Laboratory Results WBC 4.72 10^3/uL (3.29-11.43) 11/16/22 18:40 RBC 4.13 10^6/uL (3.85-5.65) 11/16/22 18:40 Hgb 12.40 g/dL (11.27-16.99) 11/16/22 18:40 Hct 38.2 % (36-47) 11/16/22 18:40 MCV 92.5 fl (85-98) 11/16/22 18:40 MCH 30.0 pg (27-33) 11/16/22 18:40 MCHC 32.5 g/dL (30-55) 11/16/22 18:40 RDW 14.0 % (12.1-15.1) 11/16/22 18:40 Plt Count 161 10^3/cmm (157-399) 11/16/22 18:40 MPV 9.1 fL (7.4-10.4) 11/16/22 18:40 Neut % (Auto) 58.3 % 11/16/22 18:40 Lymph % (Auto) 29.0 % 11/16/22 18:40 Grady % (Auto) 8.9 % 11/16/22 18:40 Eos % (Auto) 3.2 % 11/16/22 18:40 Baso % (Auto) 0.6 % 11/16/22 18:40 Neut # (Auto) 2.75 10^3/uL (1.8-7.7) 11/16/22 18:40 Lymph # (Auto) 1.4 10^3/uL (0.8-4.8) 11/16/22 18:40 Grady # (Auto) 0.4 10^3/uL (0.2-0.9) 11/16/22 18:40 Eos # (Auto) 0.2 10^3/uL (0.0-0.8) 11/16/22 18:40 Baso # (Auto) 0.0 10^3/uL (0.0-0.1) 11/16/22 18:40 Nucleated RBC % (auto) 0 % 11/16/22 18:40 Nucleated RBCs # 0.0 /100WBC 11/16/22 18:40 Sodium 138 mmol/L (136-145) 11/16/22 18:40 Potassium 4.7 mmol/L (3.5-5.1) 11/16/22 18:40 Chloride 106 mmol/L (98-107) 11/16/22 18:40 Carbon Dioxide 24 mmol/L (22-29) 11/16/22 18:40 Anion Gap 12.7 (5-19) 11/16/22 18:40 BUN 26 mg/dL (8-23) H 11/16/22 18:40 Creatinine 1.2 mg/dL (0.5-0.9) H 11/16/22 18:40 GFR Calculation Not Reportable 11/16/22 18:40 Glucose 99 mg/dL (65-115) 11/16/22 18:40 Estimat Average Glucose 111 11/16/22 18:40 Hemoglobin A1c 5.5 % (4.0-6.0) 11/16/22 18:40 Calculated Osmolality 291 mOsm/kg (285-295) 11/16/22 18:40 Lactic Acid 0.7 mmol/L (0.5-2.2) 11/16/22 18:40 Calcium 8.7 mg/dL (8.5-10.5) 11/16/22 18:40 Magnesium 2.3 mg/dL (1.7-2.3) 11/16/22 18:40 Total Bilirubin 0.4 mg/dL (0.15-1.2) 11/16/22 18:40 AST 19 U/L (0-32) 11/16/22 18:40 ALT 17 U/L (0-33) 11/16/22 18:40 Alkaline Phosphatase 80 U/L (35-105) 11/16/22 18:40 Troponin T Baseline 16 ng/L (0-10) H 11/16/22 18:40 Troponin T 120 Minute 15.09 ng/L (0-10) H 11/16/22 20:21 Delta Troponin T -0.91 ABS# (0-10) L 11/16/22 20:21 NT-Pro-B Natriuret Pep 2500 pg/mL (0-450) H 11/16/22 18:40 Total Protein 5.7 g/dL (6.6-8.7) L 11/16/22 18:40 Albumin 3.7 g/dL (3.5-5.2) 11/16/22 18:40 Globulin 2.0 g/dL (1.3-4.6) 11/16/22 18:40 TSH 4.03 uIU/mL (0.27-4.20) 11/16/22 18:40 All radiology interpretation(s) finalized by discharge Critical Care Time Critical Care Time: Critical Care Time: Yes Total Critical Care Time: 35 Attestation: This case had a high probability of a clinically significant, sudden, or life threatening deterioration of this patient's condition which required my full and direct attention, intervention and personal management. Time is independent of any procedures performed. Discharge Plan Discharge Patient Disposition: Admitted As Inpatient Admit Provider: Garett Wick Clinical Impression: Bradycardia, severe sinus, Syncope Condition: Stable Coding Level of Care Code ED Traffic Lieutenant for Florence Christy
[2022-11-16 19:20] LABS: Alanine Aminotransferase 17 U/L (0-33); Albumin Level 3.7 g/dL (3.5-5.2); Alkaline Phosphatase 80 U/L (35-105); Anion Gap 12.7 (5-19); Aspartate Amino Transferase 19 U/L (0-32); Blood Urea Nitrogen 26 mg/dL (8-23); Calcium 8.7 mg/dL (8.5-10.5); Carbon Dioxide 24 mmol/L (22-29); Chloride 106 mmol/L (98-107); Glucose 99 mg/dL (65-115); NT Pro B Type Natriuretic Pept 2500 pg/mL (0-450); Osmolality Calculated 291 mOsm/kg (285-295); Potassium 4.7 mmol/L (3.5-5.1); Sodium 138 mmol/L (136-145); Total Bilirubin 0.4 mg/dL (0.15-1.2); Total Protein 5.7 g/dL (6.6-8.7)
[2022-11-16 19:27] LABS: Magnesium 2.3 mg/dL (1.7-2.3)
--- NOTE | 2022-11-16 20:32 | ECG_ITS ---
[facility] Test Date: 2022-11-16 Pat Name: Mellissa Hurt Department: Room: 105 Gender: Female Nutrition Technician: : 1945 Requested By: Denis Hong Order Number: [id number] Marge MD: Michael Rowan M.D. Measurements Intervals [place] Rate: 53 P: 38 [place]: 167 QRS: -7 QRSD: 86 T: 55 QT: 451 QTc: 424 Interpretive Statements SINUS BRADYCARDIA Compared to ECG 11/16/2022 18:47:52 No significant changes Electronically Signed On 11-16-2022 22:57:00 CDT by Michael Rowan M.D. [id number]
[2022-11-16 20:46] LABS: Troponin 5 2HR 15.09 ng/L (0-10)
[2022-11-16 20:47] LABS: Troponin 5 2HR Delta -0.91 ABS# (0-10)
--- NOTE | 2022-11-16 21:03 | PM.HP ---
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 Patient tells me that for the last 2 days she has been feeling increasingly short of breath, no lower extremity edema but feels more short of breath, she tells me that she saw her primary care provider and her systolic blood pressures were over 190 and she was given clonidine as needed for hypertensive urgency, her last use was yesterday. She tells me that today in the afternoon, she was in the living room on the couch, and she suddenly started to feel unwell felt lightheaded, so she went to the bathroom, when she went to the bathroom, she felt lightheaded, she felt dizzy, and she screamed for help, her immediately came to her rescue in the bathroom, and at that point she had passed out, he helped her to the floor, she did not hit her head, no significant trauma, patient does not remember the event, no strokelike symptoms no facial droop no slurring words no seizure-like symptoms, here in the emergency room she has sinus bradycardia, heart rates in the low 30s, she did not require atropine, she has pacer pads in place, during my examination, her heart rates do drop into the low 30s, she does at times feel unwell, I have asked ER provider to discuss with cardiology about consideration of pacemaker placement, I had an extensive discussion goals of care with patient, she wants to be a full code, she is agreeable to pacemaker placement if needed, she does report dysuria, she has chronic UTIs she has an appointment with urology in December she is on Augmentin for now Review of Systems Const: Denies: fever(s) Eyes: Denies: change in vision Card: Reports: lightheadedness, syncope and dyspnea on exertion; Denies: chest pain or palpitations Resp: Reports: dyspnea GI: Denies: abdominal pain : Reports: dysuria Musc: Denies: neck pain or back pain Neuro: Reports: weakness in extremities; Denies: headache(s) Medications/Allergies Home Medications Medication Instructions Recorded Confirmed Last Taken Type brimonidine 0.2 %-timolol 0.5 % 1 drp ophthalmic (eye) BID 02/26/22 11/04/22 10/24/22 History eye drops (Combigan) cetirizine 10 mg tablet 10 mg PO DAILY PRN Allergy Symptoms 02/26/22 11/04/22 06/11/22 History cholecalciferol (vitamin D3) 25 25 mcg PO DAILY 90 days #90 caps 04/07/22 11/04/22 10/24/22 Rx mcg (1,000 unit) capsule (Vitamin D3) bisacodyl 10 mg rectal suppository 10 mg MO BID PRN constipation #12 06/17/22 11/04/22 10/24/22 Rx (Dulcolax (bisacodyl)) ea atorvastatin 80 mg tablet 80 mg PO DAILY #90 tabs 10/06/22 11/04/22 10/24/22 Rx clopidogrel 75 mg tablet 75 mg PO QAM #90 tabs 10/06/22 11/04/22 10/24/22 Rx donepezil 10 mg tablet 10 mg PO DAILY #90 tabs 10/06/22 11/04/22 10/24/22 Rx duloxetine 30 mg capsule,delayed 30 mg PO DAILY #90 caps 10/06/22 11/04/22 10/24/22 Rx release gabapentin 100 mg capsule 100 mg PO BID #180 caps 10/06/22 11/04/22 10/24/22 Rx losartan 100 mg tablet 100 mg PO QAM #90 tabs 10/06/22 11/04/22 10/24/22 Rx tolterodine 2 mg capsule,extended 2 mg PO DAILY #90 caps 10/06/22 11/04/22 10/24/22 Rx release 24 hr (Detrol [place]) docusate sodium 100 mg capsule 100 mg PO BID 10/24/22 11/04/22 10/24/22 History oxybutynin chloride 5 mg 5 mg PO QAM 10/24/22 11/04/22 10/24/22 History tablet,extended release 24 hr ropinirole 0.5 mg tablet 0.5 mg PO BEDTIME 10/24/22 11/04/22 10/23/22 History amoxicillin 500 mg-potassium 1 tab PO BID #20 tabs 11/04/22 11/04/22 Unknown Rx clavulanate 125 mg tablet (Augmentin) hydralazine 50 mg tablet 75 mg PO TID #180 tabs 11/04/22 11/04/22 Unknown Rx trazodone 100 mg tablet 100 mg PO DAILY #90 tabs 11/04/22 11/04/22 Unknown Rx clonidine HCl 0.1 mg tablet 0.1 mg PO BID PRN hypertensive 11/13/22 11/13/22 Unknown Rx emergency #30 tabs Allergies Allergy/AdvReac Type Severity Reaction Status Date / Time lisinopril Allergy cough Verified 11/13/22 10:32 Sulfa (Sulfonamide Allergy severe Verified 11/13/22 10:32 Antibiotics) reaction landing her in hospital beta blockers Allergy makes her Uncoded 11/13/22 10:32 cough PFSH Acute PFSH: Medical History Anxiety Atherosclerosis Cognitive decline Coronary artery disease Diverticulosis History of myocardial infarction Hyperlipidemia Hypertension Insomnia Osteoporosis Surgical History History of cataract extraction with lens replacement History of coronary artery bypass graft x 2 History of right mastoidectomy Status post lumbar laminectomy Social History (Updated 11/16/22 @ 21:07 by Garett Wick MD) Smoking and tobacco status: never smoked Alcohol intake: never Substance/Drug Use: never Vitals/I&O/Wt Last Vital Signs Temp 98.2 F 11/16/22 17:56 Pulse 49 L 11/16/22 18:36 Resp 16 11/16/22 18:36 BP 157/56 11/16/22 18:36 Pulse Ox 96 11/16/22 18:36 O2 Del Method Room Air 11/16/22 18:36 Weight last 48 hrs Weight 69.4 kg Physical Exam Const: COMMON NORMALS: no acute distress and patient oriented x3 HENMT: COMMON NORMALS: normocephalic HEAD & SCALP: normocephalic Eye: COMMON NORMALS: Equal, round and reactive pupils present and EOMs intact bilaterally Neck/C-Spine: COMMON NORMALS: no JVD Resp: COMMON NORMALS: normal respiratory effort, No retractions, No use of accessory muscles and clear to auscultation bilaterally AUSCULTATION: clear to auscultation bilaterally Cardio: COMMON NORMALS: S1 normal heart sound present and S2 normal heart sound present RATE: bradycardic RHYTHM: regular rhythm and abnormal rhythm HEART SOUNDS: S1 normal heart sound present and S2 normal heart sound present GI: COMMON NORMALS: Normal to inspection, nondistended, normoactive bowel sounds present, Soft to palpation and non-tender Extremity: COMMON NORMALS: no pedal edema Neuro: COMMON NORMALS: patient oriented x3, CN's II-XII intact bilaterally, moves all extremities and no focal motor deficits Psych: COMMON NORMALS: mental status grossly normal Data 11/16/22 18:40 11/16/22 18:40 A&P Assessment and plan (1) Bradycardia, severe sinus: (2) Syncope and collapse: (3) Shortness of breath: Plan Syncope and collapse with sinus bradycardia -Patient had an event monitor placed, report on 11/13/2022 at 11:10 PM shows a sinus pause of about 3 seconds, with bradycardia with heart rate in the 20s -Currently feels unwell, feels lightheaded, feels short of breath -She is hypertensive blood pressure 174/60, heart rate in the mid 30s, temp 98.2, O2 sats 92% on room air, alert oriented x3 Plan -Admit to ICU -Pacer pads in place -Atropine as needed -We will start dopamine drip if she sustains in the low 30s and symptomatic -Hold clonidine -For now hold Plavix in case she needs to have pacemaker placement -Cardiology has been consulted by ER provider -We will keep her n.p.o. over midnight -BNP is over 2000, avoid fluids for now -Creatinine is 1.2 -UTI like symptoms, burning with urination is on Augmentin repeat UA, Place Barney catheter we will consider antibiotics based on UA results -Full code -SCD for DVT prophylaxis, Lovenox on hold as there might be plans on pacemaker placement Attestations Medical Necessity Statement*: Patient requires hospitalization, inpatient, greater than 2 midnights, for sinus bradycardia, syncope and collapse, shortness of breath Diagnoses Bradycardia, severe sinus R00.1 Syncope and collapse R55 Shortness of breath R06.02
[2022-11-16 21:29] LABS: Chol HDL Ratio 2.76 mg/dL (0.0-4.40); Cholesterol 127 mg/dL (0-200); HDL Cholesterol 46 mg/dL (60-100); LDL Cholesterol Calculated 70 mg/dL (50-129); LDL HDL Ratio 1.52 RATIO (0.00-3.22); Triglycerides 54 mg/dL (0-150)
[2022-11-16 21:44] LABS: Estmated Average Glucose 111; Hemoglobin A1C 5.5 % (4.0-6.0)
[2022-11-16] MEDS: hyDRALAzine 50 mg Tablet 75 MG PO (21:46)
[2022-11-16] MEDS: ropinirole 0.25 mg Tablet 0.5 MG PO (21:46)
[2022-11-16] MEDS: flu vacc pf 2023-24 (6 mos+) 60 MCG IM (21:47)
[2022-11-16] MEDS: pantoprazole 40 mg SDV IVP (21:47)
[2022-11-16 21:54] LABS: Thyroid Stimulating Hormone 4.03 uIU/mL (0.27-4.20)
[2022-11-16 23:12] LABS: Add Urine Microscopic? NO; Charge for UA Resulting for Rev
[2022-11-16] MEDS: amlodipine 10 mg Tablet PO (23:14)
[2022-11-16 23:21] LABS: Bilirubin Urine Neg (Negative); Blood Urine Neg (Negative); Glucose Urine UA Norm (Normal); Ketones Urine Negative (Negative); Leukocyte Esterase Urine Negative (Negative); Nitrate Urine Negative (Negative); Protein Urine Neg (Negative); Specific Gravity, Urine 1.015 (1.005-1.030); Urine Appearance Clear (CLEAR); Urine Color Yellow (Yellow); Urobilinogen Urine Neg (Negative); pH Urine 5 (5-7)
--- NOTE | 2022-11-16 23:21 | PC.NURSE ---
Dr. Wick contacted after pt stated she was short of breath and felt like she was going to pass out . Tele monitor showed significant pause, strip posted to chart and Notified. Orders received, See MAR.
[2022-11-16] MEDS: atropine 0.1 mg/mL Syr 10 mL 1 MG IVP (23:47)
[2022-11-17] VITALS (86 sets, daily range): BP systolic 91–207; BP diastolic 44–116; PULSE 50–86; RESP 11–30; TEMP 36.9–37.1; O2SAT 85–95
--- NOTE | 2022-11-17 00:19 | PC.NURSE ---
Catheter is source of pain/discomfort. It is still draining appropriately.
[2022-11-17 01:28] LABS: Troponin 5 6HR 16.47 ng/L (0-10)
[2022-11-17 01:33] LABS: Troponin 5 6HR Delta 0.47 ng/L (0-12)
[2022-11-17] MEDS: morphine 4 mg/mL SDV 1 mL 1 MG IVP ×2 (02:32→05:14)
[2022-11-17 04:15] LABS: Basophils % 0.4 %; Eosinophils # 0.1 10^3/uL (0.0-0.8); Eosinophils % 2.4 %; Hematocrit 40.3 % (36-47); Lymphocytes # 1.6 10^3/uL (0.8-4.8); Lymphocytes % 28.6 %; Mean Corpuscular Hemoglobin 29.5 pg (27-33); Mean Corpuscular Volume 92.2 fl (85-98); Mean Platelet Volume 9.4 fL (7.4-10.4); Monocytes # 0.4 10^3/uL (0.2-0.9); Monocytes % 7.2 %; Neutrophils # 3.39 10^3/uL (1.8-7.7); Neutrophils % 61.2 %; Nucleated Red Blood Cells % 0 %; Platelet Count 172 10^3/cmm (157-399); Red Blood Count 4.37 10^6/uL (3.85-5.65); White Blood Count 5.53 10^3/uL (3.29-11.43)
[2022-11-17 04:32] LABS: Alanine Aminotransferase 18 U/L (0-33); Albumin Level 3.7 g/dL (3.5-5.2); Alkaline Phosphatase 80 U/L (35-105); Anion Gap 11.1 (5-19); Aspartate Amino Transferase 19 U/L (0-32); Blood Urea Nitrogen 21 mg/dL (8-23); Calcium 8.7 mg/dL (8.5-10.5); Carbon Dioxide 25 mmol/L (22-29); Chloride 103 mmol/L (98-107); Glucose 81 mg/dL (65-115); Magnesium 2.2 mg/dL (1.7-2.3); Osmolality Calculated 282 mOsm/kg (285-295); Phosphorus 2.6 mg/dL (2.5-4.5); Potassium 4.1 mmol/L (3.5-5.1); Sodium 135 mmol/L (136-145); Total Bilirubin 0.8 mg/dL (0.15-1.2); Total Protein 5.7 g/dL (6.6-8.7)
[2022-11-17] MEDS: losartan 50 mg Tablet 100 MG PO (05:12)
--- NOTE | 2022-11-17 07:54 | PM.PN ---
Subjective Subjective: History and physical reviewed in detail. Patient received some atropine overnight and has had some pauses. Heart rate currently around 60 and stable when I was evaluating her. She denies any chest pain. She reiterates she has had some shortness of breath with episodes and did faint at home several times. Medications: Reviewed: Yes Vitals/I&O/Wt Last Vital Signs Temp 98.7 F 11/17/22 07:18 Pulse 61 11/17/22 07:18 Resp 13 11/17/22 05:30 BP 200/70 11/17/22 05:30 Pulse Ox 89 L 11/17/22 05:30 O2 Del Method Room Air 11/16/22 21:28 11/16/22 11/17/22 11/17/22 22:59 06:59 14:59 Output Total 1600 / 1600 Balance -1600 / -1600 Weight last 48 hrs Weight 69.4 kg Physical Exam Narrative: General exam no distress, alert responsive and appears to have a fair memory HEENT: Atraumatic normocephalic. Arcus senilis present. Neck is supple no lymphadenopathy thyromegaly Cardiovascular regular rate and rhythm, no murmur Lungs somewhat coarse breath sounds, clearing with deep breaths Abdomen is soft, positive bowel sounds. No obvious organomegaly exam Barney noted, clear/yellow urine Extremities no sinus clubbing edema, cap refill brisk Urinary Catheter Management: Barney: Cath Placed During This Visit: yes Reason for Continuing Indwelling Catheter: Accurate Measurement of Urinary Output in Critically Ill Patients Urinary Catheter Date of Insertion: 11/16/22 Urinary Catheter Time of Insertion: 22:10 Data 11/17/22 03:20 11/17/22 03:20 A&P Assessment and plan (1) Bradycardia, severe sinus: Patient presents with significant bradycardia, and syncope at home. Hold clonidine Avoid beta-blockers Cardiology consult 3.1-second pause noted on recent Holter but greater than this during the night Atropine as needed If atropine is not successful consider dopamine drip For other concerns, beyond this, may require temporary pacer to bridge to definitive intervention Hold Plavix currently CBC and BMP tomorrow Previous echo done this year reviewed, normal EF and mild to moderate mitral regurgitation. Diastolic dysfunction 1/4 (2) Syncope and collapse: See above (3) URI (upper respiratory infection): Patient with recent URI symptoms, along with her Check COVID PCR (4) Atherosclerosis of coronary artery of [place] heart without angina pectoris: Patient with history of coronary disease, typically on Plavix and statin Holding Plavix currently for possible pacemaker insertion (5) Hypertension: Continue amlodipine, hydralazine, losartan. Plan Other medical problems as listed in past medical history Full code currently Lovenox will be instituted for DVT prophylaxis. This will need to be held if pacemaker is inserted tomorrow. Attestations Medical Necessity Statement*: Needs continued hospital stay for definitive evaluation and treatment of sick sinus syndrome. Diagnoses Bradycardia, severe sinus R00.1 Syncope and collapse R55 URI (upper respiratory infection) J06.9 Atherosclerosis of coronary artery of [place] heart without angina pectoris I25.10 Hypertension I10 Time Spent (min) 35
[2022-11-17] MEDS: atorvastatin 40 mg Tablet 80 MG PO (08:39)
[2022-11-17] MEDS: amlodipine 10 mg Tablet PO (08:39)
[2022-11-17] MEDS: duloxetine 30 mg Capsule PO (08:39)
[2022-11-17] MEDS: cholecalciferol (vitamin D3) 1,000 unit Tablet 1000 UNIT PO (08:39)
[2022-11-17] MEDS: trazodone 100 mg Tablet PO (08:39)
[2022-11-17] MEDS: gabapentin 100 mg Capsule PO ×2 (08:39→17:12)
[2022-11-17] MEDS: hyDRALAzine 50 mg Tablet 75 MG PO (08:40)
[2022-11-17] MEDS: donepezil 5 MG Tablet 10 MG PO (08:40)
[2022-11-17] MEDS: enoxaparin 40 mg/0.4 mL Syringe SUBCUT (08:40)
--- NOTE | 2022-11-17 08:40 | PM.CONSULT ---
Providers/Reason For Consult Consulting Physician/Specialty*: Michael Rowan MD/ Cardiology Reason for Consult*: Bradycardia Requesting Physician: Dr Wick Attending Physician: Moncho Wei MD Primary Care Provider: Olga Mazariegos MD History of Present Illness History of Present Illness Mellissa Hurt is a 77 year old female with past medical history of CAD status post two-vessel CABG several years ago who has been having bradycardic episodes recently. She came to the emergency room as has worsening shortness of breath and had a syncopal/presyncopal episode yesterday. According to patient she was sitting up and started feeling dizzy. She went to restroom where she had severe lightheadedness and she slumped over. She does not recall the episode completely. She had to call for her for help who found her to be unconscious. She had not fallen down. No chest pain. She was wearing air sampling and monitoring day prior to current presentation. However at time of yesterday's event, however she was not wearing the monitor. Last night she had episodes of significant bradycardia with close to 4-second pause. She was lightheaded and nauseous at the time. She was given atropine. Currently she is normal rhythm. She has been having shortness of breath. Review of Systems Const: Denies: fever(s) Eyes: Denies: change in vision Card: Reports: lightheadedness, syncope and dyspnea on exertion; Denies: chest pain or palpitations Resp: Reports: dyspnea GI: Denies: abdominal pain : Reports: dysuria Musc: Denies: neck pain or back pain Neuro: Reports: weakness in extremities; Denies: headache(s) Medications/Allergies Home Medications Medication Instructions Recorded Confirmed Last Taken Type brimonidine 0.2 %-timolol 0.5 % 1 drp ophthalmic (eye) BID PRN 02/26/22 11/17/22 10/24/22 History eye drops (Combigan) UNKNOWN cetirizine 10 mg tablet 10 mg PO DAILY PRN Allergy Symptoms 02/26/22 11/17/22 11/16/22 History cholecalciferol (vitamin D3) 25 25 mcg PO DAILY 90 days #90 caps 04/07/22 11/17/22 11/16/22 Rx mcg (1,000 unit) capsule (Vitamin D3) bisacodyl 10 mg rectal suppository 10 mg TN BID PRN constipation #12 06/17/22 11/17/22 10/24/22 Rx (Dulcolax (bisacodyl)) ea atorvastatin 80 mg tablet 80 mg PO DAILY #90 tabs 10/06/22 11/17/22 11/16/22 Rx clopidogrel 75 mg tablet 75 mg PO QAM #90 tabs 10/06/22 11/17/22 11/16/22 Rx donepezil 10 mg tablet 10 mg PO DAILY #90 tabs 10/06/22 11/17/22 11/16/22 Rx duloxetine 30 mg capsule,delayed 30 mg PO DAILY #90 caps 10/06/22 11/17/22 11/16/22 Rx release gabapentin 100 mg capsule 100 mg PO BID #180 caps 10/06/22 11/17/22 11/16/22 Rx losartan 100 mg tablet 100 mg PO QAM #90 tabs 10/06/22 11/17/22 11/16/22 Rx tolterodine 2 mg capsule,extended 2 mg PO DAILY #90 caps 10/06/22 11/17/22 11/16/22 Rx release 24 hr (Detrol LA) docusate sodium 100 mg capsule 100 mg PO BID PRN Constipation 10/24/22 11/17/22 10/24/22 History oxybutynin chloride 5 mg 5 mg PO QAM 10/24/22 11/17/22 11/16/22 History tablet,extended release 24 hr ropinirole 0.5 mg tablet 0.5 mg PO BEDTIME 10/24/22 11/17/22 11/16/22 History hydralazine 50 mg tablet 75 mg PO TID #180 tabs 11/04/22 11/17/22 11/16/22 Rx trazodone 100 mg tablet 100 mg PO DAILY #90 tabs 11/04/22 11/17/22 11/16/22 Rx clonidine HCl 0.1 mg tablet 0.1 mg PO BID PRN hypertensive 11/13/22 11/17/22 Unknown Rx emergency #30 tabs tramadol 50 mg tablet 50 mg PO BID PRN Pain 11/17/22 11/17/22 Unknown History Allergies Allergy/AdvReac Type Severity Reaction Status Date / Time lisinopril Allergy cough Verified 11/13/22 10:32 Sulfa (Sulfonamide Allergy severe Verified 11/13/22 10:32 Antibiotics) reaction landing her in hospital beta blockers Allergy makes her Uncoded 11/13/22 10:32 cough Current Medications Generic Name Dose Route Start Last Admin Trade Name Freq PRN Reason Stop Dose Admin Amlodipine Besylate 10 mg 11/16/22 23:15 11/16/22 23:14 Amlodipine 10 Mg Tablet PO 10 mg DAILY RONNIE Administration Hydralazine HCl 75 mg 11/16/22 21:20 11/16/22 21:46 Hydralazine 50 Mg Tablet PO 75 mg TID RONNIE Administration Losartan Potassium 100 mg 11/17/22 06:00 11/17/22 05:12 Losartan 50 Mg Tablet PO 100 mg QAM RONNIE Administration Morphine Sulfate 1 mg 11/16/22 21:20 11/17/22 02:32 Morphine 4 Mg/Ml Sdv 1 Ml IVP 1 mg Q4H PRN Administration SEVERE PAIN Pantoprazole Sodium 40 mg 11/16/22 21:20 11/16/22 21:47 Pantoprazole 40 Mg Sdv IVP 40 mg Q24H RONNIE Administration Ropinirole HCl 0.5 mg 11/16/22 21:20 11/16/22 21:46 Ropinirole 0.25 Mg Tablet PO 0.5 mg BEDTIME RONNIE Administration PFSH Acute PFSH: Medical History Anxiety Atherosclerosis Cognitive decline Coronary artery disease Diverticulosis History of myocardial infarction Hyperlipidemia Hypertension Insomnia Osteoporosis Surgical History History of cataract extraction with lens replacement History of coronary artery bypass graft x 2 History of right mastoidectomy Status post lumbar laminectomy Social History Smoking and tobacco status: never smoked Alcohol intake: never Substance/Drug Use: never Vitals/I&O/Wt Last Vital Signs Temp 98.7 F 11/17/22 07:18 Pulse 61 11/17/22 07:18 Resp 13 11/17/22 05:30 BP 200/70 11/17/22 05:30 Pulse Ox 89 L 11/17/22 05:30 O2 Del Method Room Air 11/16/22 21:28 11/16/22 11/17/22 11/17/22 22:59 06:59 14:59 Output Total 1600 / 1600 Balance -1600 / -1600 Weight last 48 hrs Weight 153 lb Physical Exam Narrative: GENERAL: Patient is alert, awake and oriented x3. [] NECK: No jugular vein distension. [] HEENT: No cyanosis. No icterus. No pallor. [] HEART: Regular S1 and S2. No murmur, rub or gallop. [] LUNGS: Clear to auscultate bilaterally. [] CENTRAL NERVOUS SYSTEM: Grossly nonfocal. [] EXTREMITIES: Lower extremities with 1+ edema bilaterally. Urinary Catheter Management: Barney: Cath Placed During This Visit: yes Reason for Continuing Indwelling Catheter: Accurate Measurement of Urinary Output in Critically Ill Patients Urinary Catheter Date of Insertion: 11/16/22 Urinary Catheter Time of Insertion: 22:10 Data 11/17/22 03:20 11/17/22 03:20 A&P Assessment and plan (1) Bradycardia, severe sinus: (2) Syncope: (3) Dizziness: (4) Hypertension: (5) Hyperlipidemia: (6) Coronary artery disease: Plan Patient rate controlling medications have been held for the last several weeks. She appears to have sinus node dysfunction with significant pauses. Yesterday had presyncopal/syncopal episode. She does not recall the exact event. She most likely needs permanent pacemaker placement. I will contact her primary engagement director, Dr. Riggins for assessment regarding pacemaker and pacemaker placement. Order limited echo Continue ICU monitoring Thank you for involving us with care of this patient. We will continue to follow. Please call with questions. Consult Attestations Medical Necessity Statement: Care expected to cross 2 midnights. Coding Level of Care Code Acute Code for Chg Fwd Diagnoses Bradycardia, severe sinus R00.1 Syncope R55 Dizziness R42 Hypertension I10 Hyperlipidemia E78.5 Coronary artery disease I25.10
--- NOTE | 2022-11-17 09:29 | USCV_ITS ---
Mellissa Hurt Age: 77 Gender: F : 1945 Exam Date: 11/17/2022 10:42 Ordering Phys: Delio Riggins MD ([email or web address]) Technologist: Ignacio Norman Exam Location: [facility] [place] Indication: nstemi BP: 161 / 61 HR: 67 Rhythm: Sinus Technical Quality: Adequate MEASUREMENTS (Male / Female) Normal Values 2D ECHO LV Diastolic Diameter PLAX 3.2 cm 4.2 - 5.9 / 3.9 - 5.3 cm LV Systolic Diameter PLAX 1.6 cm IVS Diastolic Thickness 1.0 cm 0.6 - 1.0 / 0.6 - 0.9 cm IVS Systolic Thickness 1.2 cm LVPW Diastolic Thickness 1.1 cm 0.6 - 1.0 / 0.6 - 0.9 cm LVPW Systolic Thickness 1.2 cm LVOT Diameter 2.1 cm LV Ejection Fraction 2D Teich 81.1 % LV Ejection Fraction MOD 2C 60.6 % LV Ejection Fraction 2C AL 62.6 % LA Diameter 3.5 cm M-MODE Aortic Annulus Diameter 3.6 cm LA Ao Ratio MM 1.0 MV E Point Septal Separation 1.8 cm FINDINGS Left Ventricle Normal left ventricular size and systolic function, EF 65 %. No regional wall motion abnormalities. Right Ventricle The right ventricle is normal in size and function. Right Atrium The right atrium is normal in size. Left Atrium The left atrium is normal in size. Mitral Valve No gross abnormalities noted Aortic Valve Trace to mild aortic valve regurgitation. Tricuspid Valve No gross abnormalities noted Pulmonic Valve Pulmonic valve not well visualized. Pericardium No pericardial effusion. Aorta Normal aortic annulus size. IVC Inferior vena cava not visualized. CONCLUSIONS Normal left ventricular size and systolic function, EF 65 %. No regional wall motion abnormalities. Trace to mild aortic valve regurgitation. Normal cardiac chamber sizes. No pericardial effusion No intracardiac mass Compared to the study from 05/15/2022, no significant changes in the 2D findings Dr Delio Riggins MD [facility] (Electronically Signed) Final Date: 17 November 2022 17:59 S
[2022-11-17] MEDS: hyDRALAzine 25 mg Tablet PO (09:40)
--- NOTE | 2022-11-17 09:50 | PC.PHAR ---
PT STATES DAUGHTER TAKES CARE OF HER MEDICATIONS. LEFT MESSAGE 9:45 AM.
--- NOTE | 2022-11-17 10:24 | PC.PHAR ---
PATIENTS' FAMILY IS CONCERNED ABOUT THE DUPLICATION ON BLOOD PRESSURE MEDICATIONS AND BLADDER MEDICATIONS. PT STATES SHE IS TAKING ALL MEDS VERIFIED IN CHART BY DAUGHTER-ANTONIO. THEY WOULD LIKE THE PHYSICIAN TO TAKE A CLOSER LOOK AT THEM TO MAKE SURE SHE SHOULD BE TAKING. 11/17/22
[2022-11-17 11:03] LABS: Adenovirus Not Detected (NOT DETECT); Chlamydia Pneumoniae Not Detected (NOT DETECT); Coronavirus 229E,HKU1,NL63,OC4 Not Detected (NOT DETECT); Human Metapneumovirus Not Detected (NOT DETECT); Human Rhinovirus/Enterovirus Not Detected (NOT DETECT); Influenza A Not Detected (NOT DETECT); Influenza A H1 Not Detected (NOT DETECT); Influenza A H1-2009 Not Detected (NOT DETECT); Influenza A H3 Not Detected (NOT DETECT); Influenza B Not Detected (NOT DETECT); Mycoplasma Pneumoniae Not Detected (NOT DETECT); Parainfluenza Virus Type 1 Not Detected (NOT DETECT); Parainfluenza Virus Type 2 Not Detected (NOT DETECT); Parainfluenza Virus Type 3 Not Detected (NOT DETECT); Parainfluenza Virus Type 4 Not Detected (NOT DETECT); Respiratory Syncytial Virus A Not Detected (NOT DETECT); Respiratory Syncytial Virus B Not Detected (NOT DETECT); SARS-COV-2 Not Detected (NOT DETECT)
[2022-11-17] MEDS: FUROsemide 10 mg/mL SDV 4mL 40 MG IVP (14:38)
[2022-11-17] MEDS: hyDRALAzine 50 mg Tablet 100 MG PO (14:38)
[2022-11-17] MEDS: isosorbide mononitrate ER 30 mg Tablet PO (14:38)
[2022-11-17] MEDS: docusate sodium 100 mg Capsule PO (17:12)
--- NOTE | 2022-11-17 19:06 | PM.MISC ---
Miscellaneous Note Note: This patient is admitted to hospital with near syncopal episode at home. She was found to have prolonged pause of 4 seconds on the monitor. She has a history of sinus node dysfunction. She also was found to have features of diastolic heart failure and accelerated hypertension. For further management of her condition, she requires a permanent pacemaker implantation. The risk of bleeding, hematoma, vascular injury, myocardial perforation, pericardial tamponade pneumothorax, infection, renal failure and other concomitant complications were explained in detail. The patient understood this well and consented to proceed. She was given IV diuretics for the diastolic heart failure. Her blood pressure medications also were adjusted. I will reevaluate this patient in the morning and make a final decision on the pacemaker. We will repeat this BMP, CBC in the morning. We will also do an INR
[2022-11-17 20:04] LABS: Basophils % 0.3 %; Eosinophils # 0.1 10^3/uL (0.0-0.8); Eosinophils % 1.2 %; Hematocrit 44.3 % (36-47); Lymphocytes # 1.1 10^3/uL (0.8-4.8); Lymphocytes % 16.7 %; Mean Corpuscular HGB Conc 32.1 g/dL (30-55); Mean Corpuscular Volume 93.5 fl (85-98); Mean Platelet Volume 8.9 fL (7.4-10.4); Monocytes # 0.6 10^3/uL (0.2-0.9); Monocytes % 8.4 %; Neutrophils # 4.89 10^3/uL (1.8-7.7); Neutrophils % 73.1 %; Nucleated Red Blood Cells % 0 %; Platelet Count 212 10^3/cmm (157-399); Red Blood Count 4.74 10^6/uL (3.85-5.65); Red Cell Distribution Width 13.8 % (12.1-15.1); White Blood Count 6.69 10^3/uL (3.29-11.43)
[2022-11-17] MEDS: ropinirole 0.25 mg Tablet 0.5 MG PO (20:04)
[2022-11-17] MEDS: temazepam 15 mg Capsule PO (20:04)
[2022-11-17] MEDS: pantoprazole 40 mg SDV IVP (21:22)
[2022-11-18] VITALS (33 sets, daily range): BP systolic 92–186; BP diastolic 41–79; PULSE 55–95; RESP 12–24; TEMP 36.4–36.7; O2SAT 89–97
[2022-11-18 04:25] LABS: Basophils % 0.4 %; Eosinophils # 0.1 10^3/uL (0.0-0.8); Eosinophils % 2.5 %; Hematocrit 41.4 % (36-47); Lymphocytes # 1.3 10^3/uL (0.8-4.8); Lymphocytes % 27.9 %; Mean Corpuscular HGB Conc 32.6 g/dL (30-55); Mean Corpuscular Hemoglobin 29.3 pg (27-33); Mean Platelet Volume 8.9 fL (7.4-10.4); Monocytes # 0.5 10^3/uL (0.2-0.9); Monocytes % 11.3 %; Neutrophils # 2.75 10^3/uL (1.8-7.7); Neutrophils % 57.7 %; Nucleated Red Blood Cells % 0 %; Platelet Count 175 10^3/cmm (157-399); Red Cell Distribution Width 13.8 % (12.1-15.1); White Blood Count 4.77 10^3/uL (3.29-11.43)
[2022-11-18 04:36] LABS: INR 1.05 (0.8-1.2)
[2022-11-18 04:44] LABS: Blood Urea Nitrogen 27 mg/dL (8-23); Calcium 8.7 mg/dL (8.5-10.5); Carbon Dioxide 26 mmol/L (22-29); Chloride 102 mmol/L (98-107); Glucose 108 mg/dL (65-115); Osmolality Calculated 288 mOsm/kg (285-295); Sodium 136 mmol/L (136-145)
--- NOTE | 2022-11-18 07:03 | PM.PN ---
Subjective Subjective: The patient was given IV Lasix yesterday. She put out close to 5 L of fluid within the last 24 hours. Her creatinine went up to 1.8. It was 1.1 when she came in. She has no chest pain. Her shortness of breath has remarkably improved. She could sleep well last night. She is feeling much better this morning. Denies any specific complaints. Medications: Medication Review Details: Current Medications Acetaminophen (Acetaminophen 325 Mg Tablet) 650 mg PO Q6H PRN PRN Reason: Mild/Mod Pain Or Temp >/= 101 Amlodipine Besylate (Amlodipine 10 Mg Tablet) 10 mg PO DAILY [facility] Last Admin: 11/17/22 08:39 Dose: 10 mg Atorvastatin Calcium (Atorvastatin 40 Mg Tablet) 80 mg PO DAILY [facility] Last Admin: 11/17/22 08:39 Dose: 80 mg Atropine Sulfate (Atropine 1 Mg/Ml Sdv 1 Ml) 0.4 mg IVP Q4H PRN PRN Reason: Bradycardia Docusate Sodium (Docusate Sodium 100 Mg Capsule) 100 mg PO BID [facility] Last Admin: 11/17/22 17:12 Dose: 100 mg Donepezil HCl (Donepezil 5 Mg Tablet) 10 mg PO DAILY [facility] Last Admin: 11/17/22 08:40 Dose: 10 mg Duloxetine HCl (Duloxetine 30 Mg Capsule) 30 mg PO DAILY [facility] Last Admin: 11/17/22 08:39 Dose: 30 mg Enoxaparin Sodium (Enoxaparin 40 Mg/0.4 Ml Syringe) 40 mg SUBCUT Q24H [facility] Last Admin: 11/17/22 08:40 Dose: 40 mg Furosemide (Furosemide 10 Mg/Ml Sdv 4ml) 40 mg IVP Q24H [facility] Last Admin: 11/17/22 14:38 Dose: 40 mg Gabapentin (Gabapentin 100 Mg Capsule) 100 mg PO BID [facility] Last Admin: 11/17/22 17:12 Dose: 100 mg Hydralazine HCl (Hydralazine 50 Mg Tablet) 100 mg PO TID [facility] Last Admin: 11/17/22 21:57 Dose: Not Given Sodium Chloride (Sodium Chloride 0.9%) 1,000 mls @ 75 mls/hr IV .[id number] [facility] Isosorbide Mononitrate (Isosorbide Mononitrate Er 30 Mg Tablet) 30 mg PO DAILY [facility] Last Admin: 11/17/22 14:38 Dose: 30 mg Losartan Potassium (Losartan 50 Mg Tablet) 100 mg PO QAM [facility] Last Admin: 11/17/22 05:12 Dose: 100 mg Morphine Sulfate (Morphine 4 Mg/Ml Sdv 1 Ml) 1 mg IVP Q4H PRN PRN Reason: SEVERE PAIN Last Admin: 11/17/22 02:32 Dose: 1 mg Naloxone HCl (Naloxone 0.4 Mg/Ml Sdv) 0.1 mg IVP Q2M PRN PRN Reason: OPIATERV Non-Formulary Medication (Brimonidine-Timolol [Combigan]) 1 drop EYE-BOTH BID [facility] Last Admin: 11/17/22 17:12 Dose: Not Given Ondansetron HCl (Ondansetron 2 Mg/Ml Sdv 2 Ml) 4 mg IVP Q8H PRN PRN Reason: vomiting, or N/V if npo Pantoprazole Sodium (Pantoprazole 40 Mg Sdv) 40 mg IVP Q24H [facility] Last Admin: 11/17/22 21:22 Dose: 40 mg Potassium Chloride (Potassium Chloride Er 20 Meq Tablet) 20 meq PO DAILY [facility] Potassium Chloride (Potassium Chloride Er 20 Meq Tablet) 20 meq PO ONCE RONNIE Promethazine HCl (Promethazine 25 Mg/Ml Sdv 1 Ml) 12.5 mg IM Q6H PRN PRN Reason: NAUSEA Ropinirole HCl (Ropinirole 0.25 Mg Tablet) 0.5 mg PO BEDTIME [facility] Last Admin: 11/17/22 20:04 Dose: 0.5 mg Temazepam (Temazepam 15 Mg Capsule) 15 mg PO BEDTIME PRN PRN Reason: INSOMNIA Last Admin: 11/17/22 20:04 Dose: 15 mg Trazodone HCl (Trazodone 100 Mg Tablet) 100 mg PO DAILY [facility] Last Admin: 11/17/22 08:39 Dose: 100 mg Vitamin D (Cholecalciferol (Vitamin D3) 1,000 Unit Tablet) 1,000 unit PO DAILY [facility] Last Admin: 11/17/22 08:39 Dose: 1,000 unit Vitals/I&O/Wt Last Vital Signs Temp 98.4 F 11/17/22 22:00 Pulse 60 11/18/22 06:07 Resp 15 11/18/22 06:00 BP 159/65 11/18/22 06:00 Pulse Ox 92 11/18/22 06:00 O2 Del Method Room Air 11/18/22 06:00 O2 Flow Rate 2 11/18/22 04:30 11/17/22 11/18/22 11/18/22 22:59 06:59 14:59 Output Total 3150 / 4750 400 / 5150 Balance -3150 / -4750 -400 / -5150 Weight last 48 hrs Weight 153 lb Physical Exam Narrative: GENERAL: The patient is alert and oriented times three. Not in any acute distress. HEENT: No significant pallor, icterus or lymphadenopathy.Oral cavity: There are no mucous membrane lesions. NECK: Trachea appears to be central. No masses noted. No JVD or thyromegaly appreciated. RESPIRATORY: Chest is symmetrical. No intercostals muscle retraction or any accessory muscle activation. There is no chest wall tenderness. Breath sounds are heard bilaterally. No rales or rhonchi heard. No evidence of any consolidation. BREASTS: Deferred. HEART: The heart sounds are normal. No S3 or S4. No significant murmurs. No pericardial rub ABDOMEN: No vessel pulsations or distention. No tenderness. No organomegaly appreciated. Bowel sounds are normally heard. : Deferred. RECTAL: Deferred. LYMPHATIC: No lymphadenopathy noted in the neck. EXTREMITIES: No edema or cyanosis. No clubbing. MUSCULOSKELETAL: No acute joint deformities or swelling SKIN: There are no significant rashes or ecchymosis NEUROPSYCHIATRIC: The patient is alert and oriented x3. Appears to be in a good mood. No tremors or rigidity noted. Urinary Catheter Management: Barney: Cath Placed During This Visit: yes Reason for Continuing Indwelling Catheter: Accurate Measurement of Urinary Output in Critically Ill Patients Urinary Catheter Date of Insertion: 11/16/22 Urinary Catheter Time of Insertion: 22:10 Data 11/18/22 04:02 11/18/22 04:02 Micro: Laboratory Last Values WBC 4.77 10^3/uL (3.29-11.43) 11/18/22 04:02 RBC 4.60 10^6/uL (3.85-5.65) 11/18/22 04:02 Hgb 13.50 g/dL (11.27-16.99) 11/18/22 04:02 Hct 41.4 % (36-47) 11/18/22 04:02 MCV 90.0 fl (85-98) 11/18/22 04:02 MCH 29.3 pg (27-33) 11/18/22 04:02 MCHC 32.6 g/dL (30-55) 11/18/22 04:02 RDW 13.8 % (12.1-15.1) 11/18/22 04:02 Plt Count 175 10^3/cmm (157-399) 11/18/22 04:02 MPV 8.9 fL (7.4-10.4) 11/18/22 04:02 Neut % (Auto) 57.7 % 11/18/22 04:02 Lymph % (Auto) 27.9 % 11/18/22 04:02 [place] % (Auto) 11.3 % 11/18/22 04:02 Eos % (Auto) 2.5 % 11/18/22 04:02 Baso % (Auto) 0.4 % 11/18/22 04:02 Neut # (Auto) 2.75 10^3/uL (1.8-7.7) 11/18/22 04:02 Lymph # (Auto) 1.3 10^3/uL (0.8-4.8) 11/18/22 04:02 [place] # (Auto) 0.5 10^3/uL (0.2-0.9) 11/18/22 04:02 Eos # (Auto) 0.1 10^3/uL (0.0-0.8) 11/18/22 04:02 Baso # (Auto) 0.0 10^3/uL (0.0-0.1) 11/18/22 04:02 Nucleated RBC % (auto) 0 % 11/18/22 04:02 Nucleated RBCs # 0.0 /100WBC 11/18/22 04:02 PT 14.00 SECONDS (12.1-14.9) 11/18/22 04:02 INR 1.05 (0.8-1.2) 11/18/22 04:02 Sodium 136 mmol/L (136-145) 11/18/22 04:02 Potassium 4.0 mmol/L (3.5-5.1) 11/18/22 04:02 Chloride 102 mmol/L (98-107) 11/18/22 04:02 Carbon Dioxide 26 mmol/L (22-29) 11/18/22 04:02 Anion Gap 12.0 (5-19) 11/18/22 04:02 BUN 27 mg/dL (8-23) H 11/18/22 04:02 Creatinine 1.8 mg/dL (0.5-0.9) H 11/18/22 04:02 GFR Calculation Not Reportable 11/18/22 04:02 Glucose 108 mg/dL (65-115) 11/18/22 04:02 Estimat Average Glucose 111 11/16/22 18:40 Hemoglobin A1c 5.5 % (4.0-6.0) 11/16/22 18:40 Calculated Osmolality 288 mOsm/kg (285-295) 11/18/22 04:02 Lactic Acid 0.7 mmol/L (0.5-2.2) 11/16/22 18:40 Calcium 8.7 mg/dL (8.5-10.5) 11/18/22 04:02 Phosphorus 2.6 mg/dL (2.5-4.5) 11/17/22 03:20 Magnesium 2.0 mg/dL (1.7-2.3) 11/18/22 04:02 Total Bilirubin 0.8 mg/dL (0.15-1.2) 11/17/22 03:20 AST 19 U/L (0-32) 11/17/22 03:20 ALT 18 U/L (0-33) 11/17/22 03:20 Alkaline Phosphatase 80 U/L (35-105) 11/17/22 03:20 Troponin T Baseline 16 ng/L (0-10) H 11/16/22 18:40 Troponin T 120 Minute 15.09 ng/L (0-10) H 11/16/22 20:21 Delta Troponin T -0.91 ABS# (0-10) L 11/16/22 20:21 Troponin T Hi Sens 6Hr 16.47 ng/L (0-10) H 11/17/22 01:00 Troponin T Hi Sens 6Hr Delta 0.47 ng/L (0-12) 11/17/22 01:00 NT-Pro-B Natriuret Pep 2500 pg/mL (0-450) H 11/16/22 18:40 Total Protein 5.7 g/dL (6.6-8.7) L 11/17/22 03:20 Albumin 3.7 g/dL (3.5-5.2) 11/17/22 03:20 Globulin 2.0 g/dL (1.3-4.6) 11/17/22 03:20 Triglycerides 54 mg/dL (0-150) 11/16/22 20:54 Cholesterol 127 mg/dL (0-200) 11/16/22 20:54 LDL Cholesterol, Calc 70 mg/dL (50-129) 11/16/22 20:54 HDL Cholesterol 46 mg/dL (60-100) L 11/16/22 20:54 LDL/HDL Ratio 1.52 RATIO (0.00-3.22) 11/16/22 20:54 Cholesterol/HDL Ratio 2.76 mg/dL (0.0-4.40) 11/16/22 20:54 TSH 4.03 uIU/mL (0.27-4.20) 11/16/22 18:40 Urine Color Yellow (Yellow) 11/16/22 22:07 Urine Appearance Clear (CLEAR) 11/16/22 22:07 Urine pH 5 (5-7) 11/16/22 22:07 Ur Specific [place] 1.015 (1.005-1.030) 11/16/22 22:07 Urine Protein Neg (Negative) 11/16/22 22:07 Urine Glucose (UA) Norm (Normal) 11/16/22 22:07 Urine Ketones Negative (Negative) 11/16/22 22:07 Urine Blood Neg (Negative) 11/16/22 22:07 Urine Nitrate Negative (Negative) 11/16/22 22:07 Urine Bilirubin Neg (Negative) 11/16/22 22:07 Urine Urobilinogen Neg mg/dL (Negative) 11/16/22 22:07 Ur Leukocyte Esterase Negative (Negative) 11/16/22 22:07 Coronavirus 229E (PCR) Not detected (NOT DETECT) 11/17/22 08:15 SARS-CoV-2 (PCR) Not detected (NOT DETECT) 11/17/22 08:15 Blood Type A Positive 11/17/22 19:20 Rho(D) Type Positive 11/17/22 19:20 Antibody Screen Positive 11/17/22 19:20 Other data: Echocardiogram from yesterday ?Normal left ventricular size and systolic function, EF 65 %. No ?regional wall motion abnormalities. ?Trace to mild aortic valve regurgitation. ?Normal cardiac chamber sizes. ?No pericardial effusion ?No intracardiac mass ?Compared to the study from 05/15/2022, no significant changes in ?the? 2D findings A&P Assessment and plan (1) Near syncope: Patient was found to have multiple pauses of more than 3 seconds on the event monitor. She has recurrent episodes of near syncope, the most recent one was the night before last when she was found to have a pause of 4 seconds on the monitor. She was given IV atropine in the ICU. (2) Sinus node dysfunction: In view of the patient's symptomatic bradycardia/near syncope, for further management of her condition, she would benefit from a permanent pacemaker implantation. This was discussed with the patient and her family in detail. They understood this well and consented to proceed. (3) Bradycardia, severe sinus: As mentioned above (4) Atherosclerosis of coronary artery of [place] heart without angina pectoris: Clinically seems to be stable. No evidence of myocardial injury so far. EKG is unremarkable. (5) Hypertension: Patient had an accelerated hypertension. Currently the blood pressure seems to be getting under control (6) Hyperlipidemia: May continue on the current medications. Plan Once again I discussed with the patient and family the risk and benefits of the procedure. The risk of bleeding, hematoma, vascular injury, myocardial perforation, pericardial tamponade pneumothorax, infection, renal failure and other concomitant complications were explained in detail. The patient and family understood this well and consented to proceed. We will go ahead and plan for the procedure today. Because of the abnormal kidney function, she carries a high risk of contrast-induced nephropathy. Since we are going to use only 20 cc of dye the chances of contrast-induced nephropathy is very low. The family understood this well. The patient and the family want to go ahead with the procedure. Attestations Medical Necessity Statement*: Patient requires continued hospital stay for close monitoring and further management Coding Level of Care Code 74146 Diagnoses Near syncope R55 Sinus node dysfunction I49.5 Bradycardia, severe sinus R00.1 Atherosclerosis of coronary artery of [place] heart without angina pectoris I25.10 Hypertension I10 Hyperlipidemia E78.5
--- NOTE | 2022-11-18 07:07 | PC.NURSE ---
To CCL Pt taken to On Site Coordinator for pacer placement. CCL staff took pt by bed. Family was able to go with pt to the CCL waiting room.
--- NOTE | 2022-11-18 07:13 | W.PM.OPSUD ---
Surgery/Procedure H&P Update DATE OF PROCEDURE: November 18, 2022 DATE H&P PERFORMED: 11/17/22 H&P UPDATE INFORMATION: I have reviewed H&P completed within last 30 days, I have examined patient prior to procedure and No changes to prior documentation PREOP DIAGNOSIS: Symptomatic bradycardia/sinus node dysfunction PRIMARY INDICATION FOR PROCEDURE: Recurrent episodes of near syncope with bradycardia PLANNED PROCEDURE: Operation Date: 11/18/22 07:00 Proposed Procedures p Pacemaker Insertion(Not Applicable) - Delio Riggins MD PATIENT REASSESSED PRIOR TO SEDATION, WITH NO CHANGE NOTED: Yes PHYSICAL EXAM: alert, oriented x 3, clear to auscultation bilaterally and regular rate & rhythm AIRWAY EVAL/ANESTHESIA PLAN: normal airway, see other exam findings, ASA III, Monitored Anesthesia, Local Anesthesia, Risks, benefits & alternatives of sedation and/or procedure discussed and Patient agrees to continue as planned
--- NOTE | 2022-11-18 08:59 | P.OP_ITS ---
Operative Report Date of procedure: November 18, 2022 Surgeon: Delio Riggins MD Procedure: LOCATION: ICU PREOPERATIVE DIAGNOSES: Sinus node dysfunction with prolonged pauses/ symptomatic bradycardia. POSTOPERATIVE DIAGNOSES: Same. COMPLICATIONS: None. ESTIMATED BLOOD LOSS: None. BRIEF HISTORY: 76-year-old white female with history of hypertension, atherosclerotic heart diseas, dyslipidemia, bradycardia, presented with near syncopal episode. Was found to have prolonged pauses on the telemetry. For further management of her condition, a permanent pacemaker implantation was requested. A dual chamber permanent pacemaker implantation was recommended for AV synchrony and symptom relief The procedure was explained to the patient and her family in detail with the risks and benefits. The risks of bleeding, hematoma, vascular injury, infection, pneumothorax, myocardial perforation and other concomitant complications were explained in detail, which the patient understood well and consented to proceed. PROCEDURE DESCRIPTION: The patient was brought to the Cardiac Catheterization Lab. The left and the right side of the neck and the subclavian area were cleaned and draped in a sterile fashion. 1% Xylocaine was used as the local anesthetic agent. [Left] subclavian venogram was performed by injecting 20 milliliters of Omnipaque through the left antecubital vein. A [left] subclavian venous access was obtained using a micropuncture needle system, under venographic guidance. . A two-inch long incision was made 2.0 centimeters below the midclavicular region. By sharp and blunt dissection, a pacemaker pocket was made. A second venous access was obtained using another micropuncture needle system. Over the first guidewire, a 7-[place] venous sheath with dilator was advanced. The venous dilator and the guidewire were taken out. A screw-in ventricular lead was advanced through the venous sheath and was positioned towards the right ventricle. Under fluoroscopic guidance, the ventricular lead was positioned toward the right ventricular apex. Good pacing and sensing thresholds were obtained. The lead was secured to the endocardium by advancing the helix. The stability of the lead was tested by gentle twisting movements and also by asking the patient to take some deep breaths and cough. The venous sheath was peeled off, at this time. The lead was secured to the pectoralis fascia, by suturing with 1-0 Surgilon. Over the second guidewire, another 7- [place] venous sheath with dilator was advanced. The dilator and the guidewire were taken out. Under fluoroscopic guidance, an atrial lead (Medtronic), was advanced and positioned toward the right atrium. The lead was positioned in the right atrial appendage. Good pacing and sensing thresholds were obtained. The lead was secured to the endocardium by advancing the helix. Stability of the lead was tested by gentle twisting movements and also by asking the patient to take some deep breaths and cough. The venous sheath was peeled off, at this ti me. The lead was secured to the pectoralis fascia by suturing with 0-Surgilon. The pacemaker pocket was copiously irrigated with vancomycin solution. Complete hemostasis was achieved. Sponge counts were confirmed. The leads were attached to a Medtronic generator. The leads were positioned behind the generator and the generator was attached to the pectoralis fascia by suturing with 0-Surgilon. The pocket was closed in layers. Skin was approximated using 4-0 Vicryl. IMPLANTED DEVICES: ATRIAL LEAD: Model number: 5076/52 Serial number: [id number] Make: Medtronic VENTRICULAR LEAD: Model number: 5076/58 Serial number: [id number] Make: Medtronic] GENERATOR Brand: [place] XT DR MICHELE Medardozuhairnoelle Model number: [id number] Serial number: [id number] Make: Medtronic IMPLANTATION DATA: With the pacing system analyzer, the R wave sensing was 7.1 millivolts with a lead impedance of 798 and a pacing threshold was 0.5 volts at 0.4 milliseconds. In the atrium, the sensing was 1.75 millivolts with a lead impedance of 494 ohms and a pacing threshold was 0.6 volts at 0.4 milliseconds. Through the device, the R-wave sensing was 11.8 millivolts with a lead impedance of 760 and a pacing threshold was 0.5 volts at 0.4 milliseconds. The atrial sensing was 2.1 millivolts with a lead impedance of 494 ohms and a pacing threshold of 0.6 volts at 0.4 milliseconds. The pacemaker was set for AAIR/DDDR mode with upper rate of 130 and a lower rate of 60. A pressure dressing was applied over the pacemaker site. The patient was transferred to the Medical Floor in stable condition. A chest x-ray was ordered to confirm the lead position and also to rule out any pneumothorax.
--- NOTE | 2022-11-18 09:50 | PM.PN ---
Subjective Subjective: Mellissa reports she is feeling okay after pacemaker. She denies any specific concerns currently. We discussed adding a beta-yue and she is willing to try. The indication is her coronary disease and hypertension. This will not be contraindicated now as she has a pacemaker. Medications: Reviewed: Yes Vitals/I&O/Wt Last Vital Signs Temp 98.0 F 11/18/22 08:52 Pulse 68 11/18/22 09:06 Resp 16 11/18/22 09:06 BP 186/70 11/18/22 06:30 Pulse Ox 90 11/18/22 09:06 O2 Del Method Room Air 11/18/22 06:00 O2 Flow Rate 2 11/18/22 04:30 11/17/22 11/18/22 11/18/22 22:59 06:59 14:59 Output Total 3150 / 4750 400 / 5150 Balance -3150 / -4750 -400 / -5150 Weight last 48 hrs Weight 69.4 kg Physical Exam Narrative: General exam no distress Neck is supple no lymphadenopathy thyromegaly Cardiovascular regular rate and rhythm, no murmur Lungs clear Abdomen is soft, positive bowel sounds. No obvious organomegaly Extremities no sinus clubbing edema, cap refill brisk Urinary Catheter Management: Barney: Cath Placed During This Visit: yes Reason for Continuing Indwelling Catheter: Accurate Measurement of Urinary Output in Critically Ill Patients Urinary Catheter Date of Insertion: 11/16/22 Urinary Catheter Time of Insertion: 22:10 Data 11/18/22 04:02 11/18/22 04:02 A&P Assessment and plan (1) Bradycardia, severe sinus: Patient presents with significant bradycardia, and syncope at home. Cardiology consultation appreciated 3.1-second pause noted on recent Holter but greater than this during the night Secondary to above, a permanent pacemaker was placed today, November 18 Resume Plavix tomorrow Add metoprolol 25 mg twice daily CBC and BMP tomorrow Limited echo demonstrated EF of 65%, no significant changes from prior (2) Syncope and collapse: See above, secondary to sick sinus syndrome (3) URI (upper respiratory infection): Patient with recent URI symptoms, along with her COVID PCR negative (4) Atherosclerosis of coronary artery of [place] heart without angina pectoris: Patient with history of coronary disease, typically on Plavix and statin Resume Plavix tomorrow Add beta-yue (5) Hypertension: Continue amlodipine, hydralazine, losartan. As we are adding beta-yue reduce hydralazine dose. Plan Acute kidney injury superimposed on chronic kidney disease. Hold Lasix, potassium, ARB today. Note that she diuresed 5 L yesterday. Other medical problems as listed in past medical history Full code currently Lovenox for DVT prophylaxis can be restarted tomorrow May transfer to cardiac stepdown unit Attestations Medical Necessity Statement*: Needs continued hospitalization status post pacemaker for close monitoring following pacemaker insertion Diagnoses Bradycardia, severe sinus R00.1 Syncope and collapse R55 URI (upper respiratory infection) J06.9 Atherosclerosis of coronary artery of [place] heart without angina pectoris I25.10 Hypertension I10 Time Spent (min) 28
[2022-11-18] MEDS: amlodipine 10 mg Tablet PO (10:28)
[2022-11-18] MEDS: docusate sodium 100 mg Capsule PO ×2 (10:28→17:12)
[2022-11-18] MEDS: duloxetine 30 mg Capsule PO (10:28)
[2022-11-18] MEDS: gabapentin 100 mg Capsule PO ×2 (10:28→17:12)
[2022-11-18] MEDS: atorvastatin 40 mg Tablet 80 MG PO (10:28)
[2022-11-18] MEDS: cholecalciferol (vitamin D3) 1,000 unit Tablet 1000 UNIT PO (10:28)
[2022-11-18] MEDS: donepezil 5 MG Tablet 10 MG PO (10:29)
[2022-11-18] MEDS: isosorbide mononitrate ER 30 mg Tablet PO (10:29)
[2022-11-18] MEDS: trazodone 100 mg Tablet PO (10:29)
[2022-11-18] MEDS: acetaminophen 325 mg Tablet 650 MG PO ×2 (12:01→17:13)
--- NOTE | 2022-11-18 14:07 | XRR_ITS ---
PROCEDURE INFORMATION: Exam: XR Chest Exam date and time: 11/18/2022 2:55 PM Age: 77 years old Clinical indication: Device placement; Cardiac pacemaker placement or adjustment; Prior surgery; Surgery date: Post-operative (0-2 days); Surgery type: Post pacemaker; Additional info: Post pacemaker, make sure that all the external wires are out of the fov- TECHNIQUE: Imaging protocol: Radiologic exam of the chest. Views: 1 view. COMPARISON: CR (CHEST, ) 11/16/2022 6:29 PM FINDINGS: Tubes, catheters and devices: New left pacemaker projecting in satisfactory position. Lungs: Slightly improved bilateral lower lung atelectasis, edema, and/or pneumonitis. Pleural spaces: Unremarkable. No pleural effusion. No pneumothorax. Heart/Mediastinum: Unremarkable. No cardiomegaly. Bones/joints: Unremarkable. Other findings: Stable surgical changes. XR/XR chest 1V portable [id number] IMPRESSION: 1. Improved bibasilar atelectasis and/or pneumonitis. 2. Additional details as above.
[2022-11-18] MEDS: ceFAZolin 2,000 MG in sodium chloride 0.9% (plus) 50 ML 100 MG IV ×2 (15:11→23:21)
[2022-11-18] MEDS: hyDRALAzine 25 mg Tablet 75 MG PO ×2 (15:11→19:26)
[2022-11-18] MEDS: ropinirole 0.25 mg Tablet 0.5 MG PO (19:25)
[2022-11-18] MEDS: temazepam 15 mg Capsule PO (19:26)
[2022-11-18] MEDS: metoprolol tartrate 25 mg Tablet PO (19:26)
[2022-11-18] MEDS: pantoprazole 40 mg SDV IVP (19:27)
[2022-11-18] MEDS: morphine 4 mg/mL SDV 1 mL 1 MG IVP (19:27)
[2022-11-19] VITALS (8 sets, daily range): BP systolic 104–199; BP diastolic 45–99; PULSE 62–76; RESP 10–24; TEMP 36.7–37.2; O2SAT 90–98
--- NOTE | 2022-11-19 00:09 | PC.NURSE ---
This RN agrees with all documentation, assessments and medication administrations by SN Andrew.
[2022-11-19] MEDS: morphine 4 mg/mL SDV 1 mL 1 MG IVP (02:22)
[2022-11-19] MEDS: losartan 50 mg Tablet 100 MG PO (02:23)
[2022-11-19 04:59] LABS: Anion Gap 13.2 (5-19); Blood Urea Nitrogen 22 mg/dL (8-23); Calcium 8.8 mg/dL (8.5-10.5); Carbon Dioxide 25 mmol/L (22-29); Chloride 102 mmol/L (98-107); Glucose 120 mg/dL (65-115); Magnesium 2.2 mg/dL (1.7-2.3); Osmolality Calculated 287 mOsm/kg (285-295); Potassium 4.2 mmol/L (3.5-5.1); Sodium 136 mmol/L (136-145)
--- NOTE | 2022-11-19 06:00 | ECG_ITS ---
[facility] Test Date: 2022-11-19 Pat Name: Mellissa Hurt Department: Room: 103 Gender: Female Beater Dumper: : [id number] Requested By: Delio Riggins Order Number: [id number] Reading MD: Justin aPdilla M.D. Measurements Intervals [place] Rate: 60 P: 212 ID: [id number] QRS: -8 QRSD: 88 T: 71 QT: 421 QTc: 421 Interpretive Statements ELECTRONIC ATRIAL PACEMAKER NONSPECIFIC T-WAVE ABNORMALITY ABNORMAL RHYTHM ECG WARNING: DATA QUALITY MAY AFFECT INTERPRETATION Compared to ECG 11/16/2022 20:32:57 T-wave abnormality now present Sinus bradycardia no longer present Electronically Signed On 11-19-2022 16:48:51 CDT by Justin Padilla M.D. [id number]
[2022-11-19 06:22] LABS: Basophils % 0.5 %; Eosinophils # 0.2 10^3/uL (0.0-0.8); Eosinophils % 3.6 %; Hematocrit 44.6 % (36-47); Lymphocytes # 1.2 10^3/uL (0.8-4.8); Lymphocytes % 19.8 %; Mean Corpuscular HGB Conc 32.5 g/dL (30-55); Mean Corpuscular Hemoglobin 29.4 pg (27-33); Mean Corpuscular Volume 90.3 fl (85-98); Mean Platelet Volume 8.9 fL (7.4-10.4); Monocytes # 0.6 10^3/uL (0.2-0.9); Monocytes % 10.5 %; Neutrophils # 3.85 10^3/uL (1.8-7.7); Neutrophils % 65.3 %; Nucleated Red Blood Cells % 0 %; Platelet Count 147 10^3/cmm (157-399); Red Blood Count 4.94 10^6/uL (3.85-5.65); Red Cell Distribution Width 13.6 % (12.1-15.1)
[2022-11-19] MEDS: ceFAZolin 2,000 MG in sodium chloride 0.9% (plus) 50 ML 100 MG IV (08:05)
[2022-11-19] MEDS: atorvastatin 40 mg Tablet 80 MG PO (08:11)
[2022-11-19] MEDS: clopidogrel 75 mg Tablet PO (08:12)
[2022-11-19] MEDS: isosorbide mononitrate ER 30 mg Tablet PO (08:12)
[2022-11-19] MEDS: hyDRALAzine 25 mg Tablet 75 MG PO (08:12)
[2022-11-19] MEDS: trazodone 100 mg Tablet PO (08:12)
[2022-11-19] MEDS: metoprolol tartrate 25 mg Tablet PO (08:12)
[2022-11-19] MEDS: donepezil 5 MG Tablet 10 MG PO (08:12)
[2022-11-19] MEDS: cholecalciferol (vitamin D3) 1,000 unit Tablet 1000 UNIT PO (08:12)
[2022-11-19] MEDS: gabapentin 100 mg Capsule PO (08:13)
[2022-11-19] MEDS: amlodipine 10 mg Tablet PO (08:13)
[2022-11-19] MEDS: enoxaparin 40 mg/0.4 mL Syringe SUBCUT (08:14)
[2022-11-19] MEDS: duloxetine 30 mg Capsule PO (08:24)
--- NOTE | 2022-11-19 08:54 | PC.SOCIAL ---
IMM Update pg 2 of IMM updated and reviewed w/ patient. Copy provided and copy dated, initialed and placed in chart.
--- NOTE | 2022-11-19 10:01 | P.DS_ITS ---
Discharge Providers Date of Admission: 11/16/22 20:24 Date of Discharge: November 19, 2022 Attending Provider at Admission: Garett Wick MD Attending Provider at Discharge: Moncho Wei MD Primary Care Provider: Olga Mazariegos MD Diagnoses at Discharge Discharge Diagnosis (1) Bradycardia, severe sinus: Status: Acute (2) Syncope and collapse: Status: Acute (3) URI (upper respiratory infection): Status: Acute (4) Atherosclerosis of coronary artery of [place] heart without angina pectoris: Status: Acute (5) Hypertension: Status: Chronic Reason for Visit Reason for Visit: short of breathe Hospital Course Hospital Course Mrs. Hurt is a 77-year-old white female who presented to the hospital with bradycardia and syncope. She was found to have severe sinus bradycardia, and was not on any rate limiting agents. She was placed in the ICU with orders for atropine and perhaps dopamine if needed. She did receive atropine. Cardiology was consulted for possible need for pacemaker. They agreed that pacemaker was needed. She had no electrolytes or TSH abnormalities. A limited echocardiogram was performed demonstrating preserved EF and no wall motion abnormalities. She was administered some IV Lasix for shortness of breath. On November 18, pacemaker placement was performed by Dr. Riggins. This went without complication. Following this medications for hypertension were adjusted, clonidine discontinued, hydralazine increased, beta-yue added. She tolera roberto this well. She had some evidence of acute kidney injury that day and diuretics were not continued. The following day, she was doing well. Creatinine had improved. It was thought she could discharge to home with close follow-up with cardiology as well as her primary care provider. She was given an opportunity to ask questions and agreed with the plan. Physical Exam Narrative: General exam no distress Neck is supple Cardiovascular regular rate and rhythm, bandage noted left chest, consistent w ith recent pacemaker placement Lungs clear Abdomen is soft Extremities no cyanosis clubbing or edema, cap refill brisk Urinary Catheter Management: Barney: Cath Placed During This Visit: yes Reason for Continuing Indwelling Catheter: Acute Urinary Retention or Obstruction Urinary Catheter Date of Insertion: 11/16/22 Urinary Catheter Time of Insertion: 22:10 Discharge Data Studies Completed and Pending Completed Studies During Hospitalization Category Date Time Status BRANCH LEAD request for service Routine Exams 11/18/22 06:37 Completed CXRP [XR chest 1V portable [id number]] Routine Exams 11/18/22 14:07 Completed XR chest 1V portable [id number] Stat Exams 11/16/22 18:25 Completed CV. echo limited [id number] Routine Ultrasound 11/17/22 09:29 Completed Pending at discharge Category Date Time Status Antibody Identification Routine Lab 11/17/22 19:20 Results Antigen Typing Patient Routine Lab 11/17/22 19:20 Results Antigen Typing Units Routine Lab 11/17/22 19:20 Results Leukocyte Reduced RBC Routine Lab 11/17/22 19:20 Results Type and Screen - Cardiac Routine Lab 11/18/22 04:00 Results Type and Screen Routine Lab 11/17/22 19:20 Results Radiology Impressions Chest X-Ray 11/18/22 14:07 IMPRESSION: 1. Improved bibasilar atelectasis and/or pneumonitis. 2. Additional details as above. Laboratory Results WBC 5.90 10^3/uL (3.29-11.43) 11/19/22 06:14 Corrected WBC Cancelled 11/19/22 03:30 RBC 4.94 10^6/uL (3.85-5.65) 11/19/22 06:14 Hgb 14.50 g/dL (11.27-16.99) 11/19/22 06:14 Hct 44.6 % (36-47) 11/19/22 06:14 MCV 90.3 fl (85-98) 11/19/22 06:14 MCH 29.4 pg (27-33) 11/19/22 06:14 MCHC 32.5 g/dL (30-55) 11/19/22 06:14 RDW 13.6 % (12.1-15.1) 11/19/22 06:14 Plt Count 147 10^3/cmm (157-399) L 11/19/22 06:14 MPV 8.9 fL (7.4-10.4) 11/19/22 06:14 Gran % Cancelled 11/19/22 03:30 Neut % (Auto) 65.3 % 11/19/22 06:14 Lymph % (Auto) 19.8 % 11/19/22 06:14 [place] % (Auto) 10.5 % 11/19/22 06:14 Eos % (Auto) 3.6 % 11/19/22 06:14 Baso % (Auto) 0.5 % 11/19/22 06:14 Neut # (Auto) 3.85 10^3/uL (1.8-7.7) 11/19/22 06:14 Lymph # (Auto) 1.2 10^3/uL (0.8-4.8) 11/19/22 06:14 [place] # (Auto) 0.6 10^3/uL (0.2-0.9) 11/19/22 06:14 Eos # (Auto) 0.2 10^3/uL (0.0-0.8) 11/19/22 06:14 Baso # (Auto) 0.0 10^3/uL (0.0-0.1) 11/19/22 06:14 Absolute Gran (auto) Cancelled 11/19/22 03:30 Nucleated RBC % (auto) 0 % 11/19/22 06:14 Nucleated RBCs # 0.0 /100WBC 11/19/22 06:14 PT 14.00 SECONDS (12.1-14.9) 11/18/22 04:02 INR 1.05 (0.8-1.2) 11/18/22 04:02 Sodium 136 mmol/L (136-145) 11/19/22 03:30 Potassium 4.2 mmol/L (3.5-5.1) 11/19/22 03:30 Chloride 102 mmol/L (98-107) 11/19/22 03:30 Carbon Dioxide 25 mmol/L (22-29) 11/19/22 03:30 Anion Gap 13.2 (5-19) 11/19/22 03:30 BUN 22 mg/dL (8-23) 11/19/22 03:30 Creatinine 1.2 mg/dL (0.5-0.9) H 11/19/22 03:30 GFR Calculation Not Reportable 11/19/22 03:30 Glucose 120 mg/dL (65-115) H 11/19/22 03:30 Estimat Average Glucose 111 11/16/22 18:40 Hemoglobin A1c 5.5 % (4.0-6.0) 11/16/22 18:40 Calculated Osmolality 287 mOsm/kg (285-295) 11/19/22 03:30 Lactic Acid 0.7 mmol/L (0.5-2.2) 11/16/22 18:40 Calcium 8.8 mg/dL (8.5-10.5) 11/19/22 03:30 Phosphorus 2.6 mg/dL (2.5-4.5) 11/17/22 03:20 Magnesium 2.2 mg/dL (1.7-2.3) 11/19/22 03:30 Total Bilirubin 0.8 mg/dL (0.15-1.2) 11/17/22 03:20 AST 19 U/L (0-32) 11/17/22 03:20 ALT 18 U/L (0-33) 11/17/22 03:20 Alkaline Phosphatase 80 U/L (35-105) 11/17/22 03:20 Troponin T Baseline 16 ng/L (0-10) H 11/16/22 18:40 Troponin T 120 Minute 15.09 ng/L (0-10) H 11/16/22 20:21 Delta Troponin T -0.91 ABS# (0-10) L 11/16/22 20:21 Troponin T Hi Sens 6Hr 16.47 ng/L (0-10) H 11/17/22 01:00 Troponin T Hi Sens 6Hr Delta 0.47 ng/L (0-12) 11/17/22 01:00 NT-Pro-B Natriuret Pep 2500 pg/mL (0-450) H 11/16/22 18:40 Total Protein 5.7 g/dL (6.6-8.7) L 11/17/22 03:20 Albumin 3.7 g/dL (3.5-5.2) 11/17/22 03:20 Globulin 2.0 g/dL (1.3-4.6) 11/17/22 03:20 Triglycerides 54 mg/dL (0-150) 11/16/22 20:54 Cholesterol 127 mg/dL (0-200) 11/16/22 20:54 LDL Cholesterol, Calc 70 mg/dL (50-129) 11/16/22 20:54 HDL Cholesterol 46 mg/dL (60-100) L 11/16/22 20:54 LDL/HDL Ratio 1.52 RATIO (0.00-3.22) 11/16/22 20:54 Cholesterol/HDL Ratio 2.76 mg/dL (0.0-4.40) 11/16/22 20:54 TSH 4.03 uIU/mL (0.27-4.20) 11/16/22 18:40 Urine Color Yellow (Yellow) 11/16/22 22:07 Urine Appearance Clear (CLEAR) 11/16/22 22:07 Urine pH 5 (5-7) 11/16/22 22:07 Ur Specific [place] 1.015 (1.005-1.030) 11/16/22 22:07 Urine Protein Neg (Negative) 11/16/22 22:07 Urine Glucose (UA) Norm (Normal) 11/16/22 22:07 Urine Ketones Negative (Negative) 11/16/22 22:07 Urine Blood Neg (Negative) 11/16/22 22:07 Urine Nitrate Negative (Negative) 11/16/22 22:07 Urine Bilirubin Neg (Negative) 11/16/22 22:07 Urine Urobilinogen Neg mg/dL (Negative) 11/16/22 22:07 Ur Leukocyte Esterase Negative (Negative) 11/16/22 22:07 Coronavirus 229E (PCR) Not detected (NOT DETECT) 11/17/22 08:15 SARS-CoV-2 (PCR) Not detected (NOT DETECT) 11/17/22 08:15 Blood Type A Positive 11/17/22 19:20 Rho(D) Type Positive 11/17/22 19:20 Antibody Screen Positive 11/17/22 19:20 Antibody Identification Anti-K 11/17/22 19:20 Antigen Identification K Antigen - NEGATIVE 11/17/22 22:55 Crossmatch See Detail 11/17/22 19:20 Vitals Last Vital Signs Temp 98.6 F 11/19/22 07:03 Pulse 70 11/19/22 09:19 Resp 17 11/19/22 09:19 BP 169/99 11/19/22 09:19 Pulse Ox 90 11/19/22 09:19 O2 Del Method Room Air 11/19/22 07:03 O2 Flow Rate 2 11/18/22 04:30 Discharge Plan Discharge Patient Disposition: Home Health Service Condition: Stable Prescriptions: New isosorbide mononitrate 30 mg Tablet Extended Release 24 Hr 30 mg PO DAILY Qty: 30 0RF amlodipine 10 mg Tablet 10 mg PO DAILY Qty: 30 0RF hydralazine 50 mg Tablet 100 mg PO TID Qty: 180 0RF metoprolol tartrate 25 mg Tablet 25 mg PO BID@0900,2100 Qty: 60 0RF multivitamin Tablet 1 tab PO DAILY 14 Days Qty: 14 0RF cephalexin 500 mg capsule 500 mg PO Q6H 5 Days Qty: 20 0RF Continued bisacodyl [Dulcolax (bisacodyl)] 10 mg suppository 10 mg HI BID PRN (Reason: constipation) Qty: 12 0RF trazodone 100 mg tablet 100 mg PO DAILY Qty: 90 0RF cetirizine 10 mg tablet 10 mg PO DAILY PRN (Reason: Allergy Symptoms) brimonidine-timolol [Combigan] 0.2-0.5 % drops 1 drp ophthalmic (eye) BID PRN (Reason: UNKNOWN) Rx Instructions: both eyes cholecalciferol (vitamin D3) [Vitamin D3] 25 mcg (1,000 unit) capsule 25 mcg PO DAILY 90 Days Qty: 90 1RF atorvastatin 80 mg tablet 80 mg PO DAILY Qty: 90 1RF clopidogrel 75 mg tablet 75 mg PO QAM Qty: 90 1RF donepezil 10 mg tablet 10 mg PO DAILY Qty: 90 1RF gabapentin 100 mg capsule 100 mg PO BID Qty: 180 1RF duloxetine 30 mg capsule,delayed release(DR/EC) 30 mg PO DAILY Qty: 90 1RF tolterodine [Detrol LA] 2 mg capsule,extended release 24hr 2 mg PO DAILY Qty: 90 1RF losartan 100 mg tablet 100 mg PO QAM Qty: 90 1RF ropinirole 0.5 mg tablet 0.5 mg PO BEDTIME docusate sodium 100 mg capsule 100 mg PO BID PRN (Reason: Constipation) oxybutynin chloride 5 mg tablet extended release 24hr 5 mg PO QAM tramadol 50 mg tablet 50 mg PO BID PRN (Reason: Pain) Discontinued hydralazine 50 mg tablet 75 mg PO TID Qty: 180 3RF clonidine HCl 0.1 mg tablet 0.1 mg PO BID PRN (Reason: hypertensive emergency) Qty: 30 0RF Discharge Orders: Discharge Order (Routine); Ordered 11/19/22 Ordered By: Moncho Wei Referrals: [facility] ([facility]) [Outside] Olga Mazariegos MD [Primary Care Provider] - 11/24/22 3:00 pm Vandana Cardona FNP [Nurse Practitioner] - 11/25/22 1:00 pm Discharge Diet: Cardiac Discharge Activity: Increase activity as tolerated Patient Instructions: Metoprolol (By mouth), Hydralazine (By mouth), Amlodipine (By mouth), Isosorbide Mononitrate (By mouth) (Imdur, Imdur ER, Ismo), Pacemaker (DC), Near Syncope (DC), Opioid Safety, Post Pacemaker - [place] Activity Restrictions/Additional Instructions: Take all medicine as prescribed. Follow-up with your primary care provider as instructed Follow-up with cardiology as instructed. Appointment the [facility] with the nurse practitioner next week Make keep the pacemaker dressing on till then. Keep the area clean and dry. Avoid any weight lifting of more than 5 pounds with the left hand. No weightbearing on the left elbow. Limit the movements of the left shoulder to 45 degrees Take the antibiotics as prescribed Discharge Attestations Time Spent in Discharge Care*: greater than 30 min Quality Metrics Clinical Quality Measures [ No reported AMI, CVA or VTE this stay] Coding Level of Care Code 17957 Total time (in minutes) for Discharge: 40 Diagnoses Bradycardia, severe sinus R00.1 Syncope and collapse R55 URI (upper respiratory infection) J06.9 Atherosclerosis of coronary artery of [place] heart without angina pectoris I25.10 Hypertension I10
--- NOTE | 2022-11-19 11:11 | PC.NURSE ---
Pacemaker has been interigated and sent to [facility] at 1105.
--- NOTE | 2022-11-19 12:41 | P.PN_ITS ---
Subjective Subjective: Patient had the permanent pacer implantation yesterday. The chest x-ray shows appropriate placement of the leads. Telemetry shows demand AV paced rhythm. Patient is feeling okay with no chest pain or shortness of breath. Vitals/I&O/Wt Last Vital Signs Temp 98.9 F 11/19/22 12:00 Pulse 76 11/19/22 12:00 Resp 18 11/19/22 12:00 BP 104/45 11/19/22 12:00 Pulse Ox 98 11/19/22 12:00 O2 Del Method Room Air 11/19/22 12:00 O2 Flow Rate 2 11/18/22 04:30 11/18/22 11/19/22 11/19/22 22:59 06:59 14:59 Intake Total 710 / 710 410 / 1120 410 / 410 Output Total 1050 / 1450 Balance 710 / 310 -640 / -330 410 / 410 Physical Exam Narrative: GENERAL: The patient is alert and oriented times three. Not in any acute distress. HEENT: No significant pallor, icterus or lymphadenopathy.Oral cavity: There are no mucous membrane lesions. NECK: Trachea appears to be central. No masses noted. No JVD or thyromegaly appreciated. RESPIRATORY: Chest is symmetrical. The pacemaker site has no hematoma bleeding. No intercostals muscle retraction or any accessory muscle activation. There is no chest wall tenderness. Breath sounds are heard bilaterally. No rales or rhonchi heard. No evidence of any consolidation. BREASTS: Deferred. HEART: The heart sounds are normal. No S3 or S4. No significant murmurs. No pericardial rub ABDOMEN: No vessel pulsations or distention. No tenderness. No organomegaly appreciated. Bowel sounds are normally heard. : Deferred. RECTAL: Deferred. LYMPHATIC: No lymphadenopathy noted in the neck. EXTREMITIES: No edema or cyanosis. No clubbing. MUSCULOSKELETAL: No acute joint deformities or swelling SKIN: There are no significant rashes or ecchymosis NEUROPSYCHIATRIC: The patient is alert and oriented x3. Appears to be in a good mood. No tremors or rigidity noted. Urinary Catheter Management: Barney: Cath Placed During This Visit: yes, but has since been removed by the nurse Reason for Continuing Indwelling Catheter: Accurate Measurement of Urinary Output in Critically Ill Patients Urinary Catheter Date of Insertion: 11/16/22 Urinary Catheter Time of Insertion: 22:10 Date Urinary Catheter Removed: 11/19/22 Time Urinary Catheter Discontinued: 12:31 Data 11/19/22 06:14 11/19/22 03:30 A&P Assessment and plan (1) Near syncope: Patient has not had any recurrence of near syncopal episode. (2) Sinus node dysfunction: Status post permanent pacer implantation. Currently remaining stable. (3) Bradycardia, severe sinus: No recurrence of bradycardia (4) Atherosclerosis of coronary artery of grindstone heart without angina pectoris: Clinically seems to be stable. No evidence of myocardial injury so far. EKG is unremarkable. (5) Hypertension: Patient had an accelerated hypertension. Currently the blood pressure seems to be getting under control (6) Hyperlipidemia: May continue on the current medications. Plan If the patient continues remain stable, may be discharged home today, after the pacemaker interrogation. [facility]ointment the [facility] next week to be seen by the nurse fausto brown. The post pacemaker instructions were given. Attestations Medical Necessity Statement*: Possible discharge home today Coding Level of Care Code 64573 Diagnoses Near syncope R55 Sinus node dysfunction I49.5 Bradycardia, severe sinus R00.1 Atherosclerosis of coronary artery of grindstone heart without angina pectoris I25.10 Hypertension I10 Hyperlipidemia E78.5
== END 2022-11-19 12:27 | disposition home health service (06) | DRG 243 ==
LOC: ER 18:04 → CSU 20:39 → ICU 20:56 → CSU 11-18 13:09
PROVIDERS: Internal Medicine Cardiovascular Disease; Nurse Practitioner Family; Admitting Provider Family Medicine; Emergency Provider Emergency Medicine; PCP Family Medicine; Visit Provider Internal Medicine
PROC: 0JH606Z Insertion of Pacemaker, Dual Chamber into Chest Subcutaneous Tissue and Fascia, Open Approach (ICD-10-PCS; principal; 2022-11-18 07:00)
DX: R00.1 Bradycardia, unspecified (principal); I13.0 Hypertensive heart and chronic kidney disease with heart failure and stage 1 through stage 4 chronic kidney disease, or unspecified chronic kidney disease; I50.30 Unspecified diastolic (congestive) heart failure; N17.9 Acute kidney failure, unspecified; R55 Syncope and collapse; N18.9 Chronic kidney disease, unspecified; Z79.02 Long term (current) use of antithrombotics/antiplatelets; Z79.891 Long term (current) use of opiate analgesic; I25.10 Atherosclerotic heart disease of native coronary artery without angina pectoris; Z95.1 Presence of aortocoronary bypass graft; F41.9 Anxiety disorder, unspecified; I25.2 Old myocardial infarction; E78.5 Hyperlipidemia, unspecified; G47.00 Insomnia, unspecified; M81.0 Age-related osteoporosis without current pathological fracture; Z87.440 Personal history of urinary (tract) infections; R30.0 Dysuria; Z11.52 Encounter for screening for COVID-19
CPT/HCPCS: 33208; 36415; 51702; 71045; 80048; 80053; 80061; 80503; 81003; 83036; 83605; 83735; 83880; 84100; 84443; 84484; 85025; 85610; 86850; 86870; 86900; 86902; 86920; 87635; 90471; 90686; 93005; 93308; 94760; 96361; 96365; 96367; 96372; 96376; 97165; 97535; 99152; 99153; 99285; A4216; C1769; C1779; C1786; C1894; C1898; C9113; J0461; J0690; J1650; J1940; J2250; J2270; J3010; J3370; J7030; J7050; Q9967

== ENCOUNTER → 2022-11-25 12:57 | Outpatient (BNVA) | payer MEDICARE, OTHER, SELFPAY | PROVIDERS: PCP Family Medicine; Visit Provider Nurse Practitioner Family | DX: Z95.0 Presence of cardiac pacemaker (principal) | CPT/HCPCS: 99024; 99213 ==

== ENCOUNTER → 2023-01-21 10:28 | Outpatient (BNVA) | payer MEDICARE, OTHER, SELFPAY | PROVIDERS: PCP Family Medicine; Referring Provider Family Medicine; Visit Provider Specialist | DX: R41.9 Unspecified symptoms and signs involving cognitive functions and awareness (principal); G30.9 Alzheimer's disease, unspecified; F02.80 Dementia in other diseases classified elsewhere, unspecified severity, without behavioral disturbance, psychotic disturbance, mood disturbance, and anxiety | CPT/HCPCS: 99204 ==

== ENCOUNTER → 2023-01-26 13:57 | Outpatient (BNVA) | payer MEDICARE, OTHER, SELFPAY | PROVIDERS: PCP Family Medicine; Visit Provider Nurse Practitioner Family | DX: I25.10 Atherosclerotic heart disease of native coronary artery without angina pectoris (principal); I10 Essential (primary) hypertension; Z95.0 Presence of cardiac pacemaker | CPT/HCPCS: 99214 ==

== ENCOUNTER → 2023-01-30 15:38 | Outpatient (BNVA) | payer MEDICARE, OTHER, SELFPAY | PROVIDERS: PCP Family Medicine; Visit Provider Nurse Practitioner Family | DX: R30.0 Dysuria (principal); N30.01 Acute cystitis with hematuria; R39.9 Unspecified symptoms and signs involving the genitourinary system | CPT/HCPCS: 81000; 87077; 87086; 87184 ==

== ENCOUNTER → 2023-02-17 14:34 | Outpatient (BNVA) | payer MEDICARE, OTHER, SELFPAY | PROVIDERS: PCP Family Medicine; Visit Provider Family Medicine | DX: R30.0 Dysuria (principal); N39.0 Urinary tract infection, site not specified | CPT/HCPCS: 81000; 87077; 87086; 87184 ==

== ENCOUNTER 2023-03-18 11:15 | Outpatient (CLI) | payer MEDICARE, OTHER, SELFPAY ==
--- NOTE | 2023-03-18 11:21 | XRR_ITS ---
PROCEDURE INFORMATION: Exam: XR Chest Exam date and time: 03/18/2023 11:42 AM Age: 78 years old Clinical indication: Chest wall pain; Prior surgery; Surgery date: 6+ months; Surgery type: Pacemaker, open heart; Additional info: Left chest wall pain TECHNIQUE: Imaging protocol: Radiologic exam of the chest. Views: 2 views. COMPARISON: CR XR chest 1V portable [id number] 11/18/2022 2:55 PM FINDINGS: Tubes, catheters and devices: Left sided cardiac pacemaker leads in satisfactory position. Lungs: No consolidation. Pleural spaces: No sizable pleural effusion or pneumothorax. Heart/Mediastinum: Stable cardiomediastinal silhouette. Bones/joints: Status post median sternotomy. Lumbar vertebroplasty. Multilevel chronic thoracic compression fractures with exaggerated kyphosis. XR/XR chest 2V* [id number] IMPRESSION: No acute intrathoracic findings.
== END 2023-03-18 11:16 | disposition home or self-care (01) ==
LOC: RAD 11:18
PROVIDERS: PCP Family Medicine; Visit Provider Family Medicine
DX: Z01.818 Encounter for other preprocedural examination (principal); R07.89 Other chest pain
CPT/HCPCS: 71046; 81000

== ENCOUNTER → 2023-05-27 14:57 | Outpatient (BNVA) | payer MEDICARE, OTHER, SELFPAY | PROVIDERS: PCP Family Medicine; Visit Provider Internal Medicine Cardiovascular Disease | DX: I25.10 Atherosclerotic heart disease of native coronary artery without angina pectoris (principal); I10 Essential (primary) hypertension; E78.2 Mixed hyperlipidemia; Z95.0 Presence of cardiac pacemaker | CPT/HCPCS: 99214 ==

== ENCOUNTER → 2023-05-28 13:28 | Outpatient (BNVA) | payer MEDICARE, OTHER, SELFPAY | PROVIDERS: PCP Family Medicine; Visit Provider Nurse Practitioner Family | DX: R39.9 Unspecified symptoms and signs involving the genitourinary system (principal) | CPT/HCPCS: 81000; 87077; 87086; 87184 ==

== ENCOUNTER → 2023-07-08 10:25 | Outpatient (BNVA) | payer MEDICARE, OTHER, SELFPAY | PROVIDERS: PCP Family Medicine; Visit Provider Family Medicine | DX: R30.0 Dysuria (principal); K52.9 Noninfective gastroenteritis and colitis, unspecified; R42 Dizziness and giddiness | CPT/HCPCS: 80053; 81000; 84443; 85025; 86364; 87077; 87086; 87184 ==

== ENCOUNTER → 2023-07-09 09:51 | Outpatient (BNVA) | payer MEDICARE, OTHER, SELFPAY | PROVIDERS: PCP Family Medicine; Visit Provider Family Medicine | DX: K52.9 Noninfective gastroenteritis and colitis, unspecified (principal) | CPT/HCPCS: 83993; 87328; 87329; 87493 ==

== ENCOUNTER → 2023-07-22 12:30 | Outpatient (BNVA) | payer MEDICARE, OTHER, SELFPAY | PROVIDERS: PCP Family Medicine; Visit Provider Specialist | DX: Z98.890 Other specified postprocedural states (principal); G25.81 Restless legs syndrome; G30.9 Alzheimer's disease, unspecified; F02.80 Dementia in other diseases classified elsewhere, unspecified severity, without behavioral disturbance, psychotic disturbance, mood disturbance, and anxiety; R19.7 Diarrhea, unspecified; R41.9 Unspecified symptoms and signs involving cognitive functions and awareness | CPT/HCPCS: 81003; 82607; 83540; 87086; 99214; 99215 ==

== ENCOUNTER → 2023-07-31 09:58 | Outpatient (BNVA) | payer MEDICARE, OTHER, SELFPAY | PROVIDERS: PCP Family Medicine; Visit Provider Clinical Nurse Specialist Adult Health | DX: R30.0 Dysuria (principal) | CPT/HCPCS: 81000; 87086 ==

== ENCOUNTER → 2023-08-17 15:00 | Outpatient (BNVA) | payer MEDICARE, OTHER, SELFPAY | PROVIDERS: PCP Family Medicine; Visit Provider Family Medicine | DX: R30.0 Dysuria (principal); N30.01 Acute cystitis with hematuria | CPT/HCPCS: 81000; 87086 ==

== ENCOUNTER → 2023-09-11 12:01 | Outpatient (BNVA) | payer MEDICARE, OTHER, SELFPAY | PROVIDERS: PCP Family Medicine; Visit Provider Family Medicine | DX: N30.01 Acute cystitis with hematuria (principal) | CPT/HCPCS: 81003; 87077; 87086; 87184 ==

== ENCOUNTER → 2023-09-24 10:39 | Outpatient (BNVA) | payer MEDICARE, OTHER, SELFPAY | PROVIDERS: PCP Family Medicine; Visit Provider Clinical Nurse Specialist Adult Health | DX: R30.0 Dysuria (principal) | CPT/HCPCS: 81000 ==

== ENCOUNTER → 2023-10-21 14:52 | Outpatient (BNVA) | payer MEDICARE, OTHER, SELFPAY | PROVIDERS: PCP Family Medicine; Visit Provider Specialist | DX: Z98.890 Other specified postprocedural states (principal); G25.81 Restless legs syndrome; G30.9 Alzheimer's disease, unspecified; F02.80 Dementia in other diseases classified elsewhere, unspecified severity, without behavioral disturbance, psychotic disturbance, mood disturbance, and anxiety; R19.7 Diarrhea, unspecified; R41.9 Unspecified symptoms and signs involving cognitive functions and awareness | CPT/HCPCS: 99213 ==

== ENCOUNTER → 2023-11-03 12:50 | Outpatient (BNVA) | payer MEDICARE, OTHER, SELFPAY | PROVIDERS: PCP Family Medicine; Visit Provider Family Medicine | DX: R30.0 Dysuria (principal) | CPT/HCPCS: 81000 ==

== ENCOUNTER → 2023-12-16 12:28 | Outpatient (BNVA) | payer MEDICARE, OTHER, SELFPAY | PROVIDERS: PCP Family Medicine; Visit Provider Family Medicine | DX: R30.0 Dysuria (principal) | CPT/HCPCS: 81000; 87077; 87086; 87184 ==

== ENCOUNTER → 2024-02-15 12:05 | Outpatient (BNVA) | payer MEDICARE, OTHER, SELFPAY | PROVIDERS: PCP Family Medicine; Visit Provider Internal Medicine Cardiovascular Disease | DX: R07.9 Chest pain, unspecified (principal); R06.02 Shortness of breath; I50.9 Heart failure, unspecified; Z95.0 Presence of cardiac pacemaker; R94.31 Abnormal electrocardiogram [ECG] [EKG] | CPT/HCPCS: 36415; 80048; 83880; 93005; 99215 ==

== ENCOUNTER 2024-03-25 07:56 | Outpatient (CLI) | payer MEDICARE, OTHER, SELFPAY ==
--- NOTE | 2024-03-25 | ECG_ITS ---
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 Interpretive Statements Lung unchanged pre/post procedure; Intraprocedure shortess of breath; Symptoms resoled by discharge PROCEDURE: At the baseline, the EKG revealed normal sinus rhythm with some nonspecific ST-T changes. The baseline heart was 62 bpm with a blood pressue of 159/84 mm of Hg Lexiscan was infused over a period of 20 seconds. A total of 0.4 milligrams of Lexiscan was infused. The stress phase was continued for a total of 5 minutes. Heart rate at the end of the stress phase was 68 bpm with a blood pressure 179 63 mm of Hg. The EKG at the peak infusion revealed no significant changes. Sestamibi was injected 20 seconds after the Lexiscan infusion. Heart rate at the end of the recovery phase was 63 bpm with a blood pressure of 177/78 mm of Hg. CONCLUSION: 1. No significant EKG changes with the LexiScan infusion 2. No LexiScan induced chest pain or cardiac arrhythmia 3. Normal blood pressure and heart rate response 4. Sestamibi/sestamibi perfusion scan pending; see separate report. Electronically Signed On 03-28-2024 06:20:51 [employer]URE [employer] by Delio Riggins M.D. [email or web address]
[2024-03-25 08:14] VITALS: BMI 24.7
--- NOTE | 2024-03-25 08:17 | NMCV_ITS ---
NM meño perf SPECT r/s* [id number] Mellissa Hurt Age: 79 Gender: F : 1945 Exam Date: 03/25/2024 08:17 Ordering Phys: Delio Riggins MD ([email or web address]) Technologist: GONZALEZ Messina Exam Location: [facility] Indications: cp STRESS TEST [facility] IMAGE PROTOCOL Rest/Stress 1 Lexiscan Day Radiopharmaceutical Dose (mCi) Administration Site Administered by Rest: Tc-99m 10.2 IV Sondra Valle, [employer]PORATE [employer]IST Sestamibi Stress:Tc-99m 32.4 IV Sondra Valle, CORPORATE [employer] SPECIALIST Sestamibi Rest: 25-Mar-2024 60 Discovery 630 Stress: 25-Mar-2024 30 Discovery 630 0.4mg Lexiscan. Images obtained in supine and prone position. SPECT RESULTS Technical Quality: Good Raw Data Analysis: Normal Image Corrections: No attenuation or motion correction applied Summed Stress Score: 0 Summed Rest Score: 1 Summed Difference Score: 0 PERFUSION FINDINGS Fairly uniform myocardial tracer uptake with no significant Perfusion abnormalities. FUNCTIONAL RESULTS (calculated via Gated SPECT) Stress Image LV EF (%): 76 Stress EDV (mL):58 TID: 0.81 Stress ESV (mL):14 FUNCTIONAL FINDINGS: Segmental wall motion analysis revealing no gross wall motion abnormalities IMPRESSIONS 1. Fairly uniform myocardial tracer uptake with no significant perfusion abnormalities. 1. Normal LV ejection fraction of 76%. 3. LV wall motion analysis revealing no gross wall motion abnormalities. 4. Normal LV volume Low probability for coronary ischemia, based on the above findings No similar previous studies are available for comparison Dr Delio Riggins MD [facility] (Electronically Signed) Final Date: 25 March 2024 11:15 S
[2024-03-25] MEDS: regadenoson 0.4 Mg/5 ml Syringe IVP (09:59)
[2024-03-25 10:27] VITALS: BP 177/94; PULSE 67
== END 2024-03-25 07:57 | disposition home or self-care (01) ==
PROVIDERS: PCP Family Medicine; Visit Provider Internal Medicine Cardiovascular Disease
DX: R07.9 Chest pain, unspecified (principal)
CPT/HCPCS: 36415; 78452; 93017; 96374; A9500; J2785

== ENCOUNTER 2024-03-25 11:54 | Outpatient (CLI) | payer MEDICARE, OTHER, SELFPAY ==
--- NOTE | 2024-03-25 12:45 | USCV_ITS ---
Mellissa Hurt Age: 79 Gender: F : 1945 Exam Date: 03/25/2024 12:37 Ordering Phys: Delio Riggins MD ([email or web address]) Technologist: [place] [facility] [place]: BP: 159 / 79 HR: 74 Rhythm: Sinus Technical Quality: Adequate MEASUREMENTS (Male / Female) Normal Values 2D ECHO LVOT Diameter 2.0 cm LV Ejection Fraction MOD 4C 54.3 % LV Ejection Fraction MOD 2C 58.9 % LV Ejection Fraction 2C AL 59.3 % LA Diameter 3.6 cm RA Systolic Volume 4C AL 26.0 ml RA Systolic Volume 4C MOD 24.9 ml LA Sys Volume AL 51.0 cm cubed LA Sys Volume Index AL 28.1 cm cubed/m squared Aorta at Sinotubular Diameter 2.2 cm M-MODE LA Ao Ratio MM 1.4 AV Cusp Separation MM 2.0 cm DOPPLER AV Peak Velocity 159.0 cm/s LVOT Peak Velocity 117.0 cm/s AV Area Cont Eq vti 2.6 cm squared AV Area Cont Eq pk 2.4 cm squared MV Peak Velocity 93.0 cm/s MV Area PHT 2.2 cm squared Mitral E to A Ratio 0.5 TV Peak Velocity 294.0 cm/s TR Peak Velocity 299.5 cm/s TR Peak Gradient 35.9 mmHg TR Mean Velocity 195.0 cm/s TR Mean Gradient 18.4 mmHg TR Velocity Time Integral 69.4 cm TV Peak E Velocity 111.0 cm/s PV Peak Velocity 96.0 cm/s FINDINGS Left Ventricle Moderate left ventricular hypertrophy. No regional wall motion abnormalities. Normal left ventricular size and systolic function, EF 59%. Grade I/IV diastolic dysfunction (abnormal relaxation filling pattern), normal to mildly elevated filling pressures. Right Ventricle Pacemaker wire in the right with Right Atrium Pacemaker wire in the right atrium Left Atrium Mildly increased left atrial size. Mitral Valve No gross abnormalities noted Aortic Valve Mild aortic valve regurgitation. Thickened aortic valve. Trace aortic valve regurgitation. Tricuspid Valve Mild tricuspid valve regurgitation. Estimated pulmonary artery peak systolic pressure 40 mmHg Pulmonic Valve Pulmonic valve not well visualized. Pericardium No pericardial effusion. Aorta Normal aortic annulus size. IVC CONCLUSIONS Moderate left ventricular hypertrophy. No regional wall motion abnormalities. Normal left ventricular size and systolic function, EF 59%. Grade I/IV diastolic dysfunction (abnormal relaxation filling pattern), normal to mildly elevated filling pressures. Mildly increased left atrial size. Mild aortic valve regurgitation. Thickened aortic valve. Trace aortic valve regurgitation. Mild tricuspid valve regurgitation. Estimated pulmonary artery peak systolic pressure 40 mmHg. There is no pericardial effusion. There are no intracardiac masses. Compared to the study from 11/17/2022, there may not be a significant change Dr Delio Riggins MD [facility] (Electronically Signed) Final Date: 27 March 2024 18:20 S
== END 2024-03-25 11:55 | disposition home or self-care (01) ==
PROVIDERS: PCP Family Medicine; Visit Provider Internal Medicine Cardiovascular Disease
DX: R06.09 Other forms of dyspnea (principal); R93.1 Abnormal findings on diagnostic imaging of heart and coronary circulation; I35.1 Nonrheumatic aortic (valve) insufficiency; I35.8 Other nonrheumatic aortic valve disorders; I07.1 Rheumatic tricuspid insufficiency
CPT/HCPCS: 93306

== ENCOUNTER 2024-05-16 14:13 | Outpatient (CLI) | payer MEDICARE, OTHER, SELFPAY ==
--- NOTE | 2024-05-16 14:45 | XR_ITS ---
WS: [id number] SCREENING DEXA SCAN [facility] CLINICAL INFORMATION: ASYMPTOMATIC MENOPAUSE COMPARISON: None. FINDINGS: The LEFT forearm bone mineral density measures 0.76. This corresponds to a T score score of -1.2 and Z score of 1.6. Left femoral neck bone mineral density measures 0.682 g/cm2. This corresponds to a T score of -2.6 and Z score of -0.6. Right femoral neck bone mineral density measures 0.678 g/cm2. This corresponds to a T score -2.6of and Z score of -0.7. Mean femoral neck bone mineral density measures 0.680 g/cm2. This corresponds to a T score of -2.6 and Z score of -0.6. XR/XR DEXA axial skeleton* [id number] IMPRESSION: Osteopenia LEFT forearm. Osteoporosis femoral necks. Patient's FRAX calculated 10 year probability for major osteoporotic fracture i s 35.7% and osteoporotic hip fracture is 14.8%.
== END 2024-05-16 14:14 | disposition home or self-care (01) ==
LOC: RAD 14:14
PROVIDERS: PCP Family Medicine; Visit Provider Family Medicine
DX: Z78.0 Asymptomatic menopausal state (principal); M85.832 Other specified disorders of bone density and structure, left forearm; M81.0 Age-related osteoporosis without current pathological fracture
CPT/HCPCS: 77080

== ENCOUNTER → 2024-07-13 14:17 | Outpatient (BNVA) | payer MEDICARE, OTHER, SELFPAY | PROVIDERS: PCP Family Medicine; Visit Provider Nurse Practitioner Family | DX: I25.10 Atherosclerotic heart disease of native coronary artery without angina pectoris (principal); Z95.0 Presence of cardiac pacemaker | CPT/HCPCS: 93005 ==

== ENCOUNTER → 2024-07-29 09:30 | Outpatient (BNVA) | payer MEDICARE, OTHER, SELFPAY | PROVIDERS: PCP Family Medicine; Visit Provider Orthopaedic Surgery | DX: M18.0 Bilateral primary osteoarthritis of first carpometacarpal joints (principal) | CPT/HCPCS: 73110 ==

== ENCOUNTER 2024-07-29 11:04 | Outpatient (CLI) | payer MEDICARE, OTHER, SELFPAY | END 2024-07-29 11:05 | disposition home or self-care (01) | LOC: SPT 11:05 | PROVIDERS: PCP Family Medicine; Visit Provider Orthopaedic Surgery | DX: Z46.89 Encounter for fitting and adjustment of other specified devices (principal); M25.532 Pain in left wrist; M25.531 Pain in right wrist | CPT/HCPCS: 99204; L3809 ==

== ENCOUNTER → 2024-10-12 11:54 | Outpatient (BNVA) | payer MEDICARE, OTHER, SELFPAY | PROVIDERS: PCP Family Medicine; Visit Provider Internal Medicine Cardiovascular Disease | DX: Z45.018 Encounter for adjustment and management of other part of cardiac pacemaker (principal) | CPT/HCPCS: 93296 ==

== ENCOUNTER → 2025-01-11 11:22 | Outpatient (BNVA) | payer MEDICARE, OTHER, SELFPAY | PROVIDERS: PCP Family Medicine; Visit Provider Internal Medicine Cardiovascular Disease | DX: Z45.018 Encounter for adjustment and management of other part of cardiac pacemaker (principal) | CPT/HCPCS: 93296 ==